=== PATIENT | male | born 1955 | race Caucasian/White ===

== ENCOUNTER 2017-03-13 08:58 | Inpatient (IN) | payer BC, MEDICARE ==
[~2017-03-13] VITALS: Ht 175.3 cm; Wt 115.4 kg
[~2017-03-13 08:58] MED LIST: ATOR20TA66 PO; BCTR15O TP; CLCX200C PO; CYCL10TA9 PO; DIPH25TA82 PO; ESCI20TA2 PO; FURO40TA4 PO; GABA-488 PO; GABA600T2 PO; HYDR-2890 PO; IRON1CAP11 PO; LD5PT TOP; META800T5 PO; NF-ESOM40C PO; OMG1KC PO; OXYC1TAB17 PO; OXYC20TA4 PO; OXYC80TA39 PO; POTA10CA43 PO; TRAM50TA2 PO; WARF2.5T56 PO; [UNRECOGNIZED DRUG - CODE] EXT; [UNRECOGNIZED DRUG - CODE] IV
[2017-03-13] MEDS ORDERED: fentaNYL INJECTION 100 MCG/2 ML AMP IVP PRN (10:00)
[2017-03-13] MEDS ORDERED: ACETAMINOPHEN 500 MG TAB (TYLENOL) PO PRN (10:00)
[2017-03-13] MEDS ORDERED: ONDANSETRON 4 MG/2 ML (SDV) Z0FRAN IVP PRN (10:00)
[2017-03-13] MEDS ORDERED: ALPRAZolam 0.25 MG (XANAX) TAB PO PRN ×2 (10:00→14:00)
[2017-03-13] MEDS ORDERED: VANCOMYCIN INJECTION 1,000 MG in NS (IVPB) 250 ML IV SCH (10:00)
[2017-03-13] MEDS ORDERED: ONDANSETRON 4 MG (ZOFRAN) ORAL DISSOLVE TAB PO PRN (10:00)
[2017-03-13] MEDS: NS IV 1000 ML 1,000 ML IV SCH ×2 (10:46→17:54)
[2017-03-13] MEDS ORDERED: POTA10TA10 PO (10:49)
[2017-03-13] MEDS ORDERED: EZET10TA27 PO (10:49)
[2017-03-13] MEDS ORDERED: LISI10TA2 PO (10:49)
[2017-03-13] MEDS ORDERED: CELE-63 PO (10:49)
[2017-03-13] MEDS ORDERED: LEVO1CAP9 PO (10:49)
--- NOTE | 2017-03-13 11:02 | History & Physical-Hospitalist ---
HPI History of Present Illness: HPI/Chief Complaint CC: Left leg cellulitis with fever of 102 with confusion HPI: This is a 61-year-old white male patient of Dr. Bergman in [place] that was transferred from [facility] so that Dr. Muniz could assess his left knee because of prior septic arthritis and multiple surgeries to manage that. 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 He had received 1 g of vancomycin and 1 g of Rocephin prior to transfer and the left leg that was severely red and swollen has had great improvement since the antibiotics were infused. Bilateral lower extremity ultrasound was completed revealing no evidence of DVT. He does take large doses of chronic narcotics for chronic pain in addition to gabapentin 300 mg 3 times a day along with Flexeril 10 mg 3 times a day and that regimen has caused altered mental status with the fever and infection. I have asked Dr Enrique to evaluate the soft tissue infection and will have Dr Silva evaluate my suspicion for CAD and PVD. Source: patient, family Exam Limitations: clinical condition Date Seen 03/13/17 Time Seen by Provider: 10:40 Attending Physician Keisha Martin DO PCP No,Local Physician Referring Physician Date of Admission Mar 13, 2017 at 10:20 Home Medications & Allergies Home Medications Reviewed patient Home Medication Reconciliation Form Allergies Allergies Coded Allergies Penicillins (Unverified Allergy, Unknown, 04/11/14) Past Fnytyfh-Vhxxzm-Jiyxkl Hx Patient Social History Smoking Status: Former Smoker (quit 3 yrs ago) Immunizations Up To Date Tetanus Booster (TDap): Less than 5yrs Surgeries HX Surgeries: Yes (BILATERAL KNEE REPLACEMENT, NECK AND BACK SURGERY, ) Surgeries: Orthopedic Respiratory Hx Respiratory Disorders: Yes (HX BRONCHITIS) Cardiovascular Hx Cardiovascular Disorders: No Neurological Hx Neurological Disorders: Yes Neurological Disorders: Neuropathy Reproductive System Hx Reproductive Disorders: No Genitourinary Hx Genitourinary Disorders: Yes Genitourinary Disorders: Renal Failure Gastrointestinal Hx Gastrointestinal Disorders: No Musculoskeletal Hx Musculoskeletal Disorders: Yes (DJD, INFECTED KNEE JOINTS) Musculoskeletal Disorders: Chronic Back Pain Endocrine Hx Endocrine Disorders: No HEENT HX ENT Disorders: No Cancer Hx Cancer: No Psychosocial Hx Psychiatric Problems: No Integumentary HX Skin/Integumentary Disorder: No Blood Transfusions Hx Blood Disorders: No Adverse Reaction to a Blood Tr: No Family Medical History Family Hx: Cardiovascular disease 19 FATHER Hypertension G8 BROTHER Respiratory disorder 19 FATHER Review of Systems Constitutional: see HPI, weakness EENTM: no symptoms reported Respiratory: no symptoms reported Cardiovascular: no symptoms reported Gastrointestinal: no symptoms reported Genitourinary: no symptoms reported Musculoskeletal: joint swelling, muscle pain Skin: see HPI, change in color, rash Psychiatric/Neurological: No Symptoms Reported Physical Exam Physical Exam Vital Signs Capillary Refill : General Appearance: No Apparent Distress, WD/WN, Chronically ill, Obese Eyes: Bilateral Eye Normal Inspection, Bilateral Eye PERRL HEENT: PERRL/EOMI, Normal ENT Inspection, Pharynx Normal Neck: Full Range of Motion, Normal Inspection, Non Tender, Supple, Carotid Bruit Respiratory: Chest Non Tender, Lungs Clear, Normal Breath Sounds, No Accessory Muscle Use, No Respiratory Distress Cardiovascular: Regular Rate, Rhythm, No Edema, No Gallop, No JVD, No Murmur, Normal Peripheral Pulses Gastrointestinal: Normal Bowel Sounds, No Organomegaly, No Pulsatile Mass, Non Tender, Soft Back: Normal Inspection, No CVA Tenderness, No Vertebral Tenderness Extremity: Normal Capillary Refill, Normal Inspection, Normal Range of Motion, Non Tender, No Calf Tenderness, No Pedal Edema, Other (left leg erythema from ankle to upper tibia with chronic stasis changes and eschars) Neurologic/Psychiatric: Alert, No Motor/Sensory Deficits, Normal Mood/Affect, Other (lethargic but becomes alert easily) Skin: Normal Color, Warm/Dry Lymphatic: No Adenopathy Assessment/Plan Admission Diagnosis Assessment: Left lower leg cellulitis with fever of 104 w/confusion from SIRS and pain meds/ muscle relaxants/gabapentin h/o left knee septic joint managed by Dr Muniz w/current cellulitis approaching joint so consulting Dr Muniz Chronic back pain narcotic dependent Suspicious for LORI and CAD no w/u in past consulting Dr Silva Leukocytosis Crackles on lung exam LLL ordering CXR and Nebs HTN HLP CRI creat 1.7 today Assessment and Plan Plan: IVF Limit pain meds until confusion resolved Monitor creatinine Vanc and Rocephin empirically Consult Iva Erazo and Cristy Clinical Quality Measures DVT/VTE Risk/Contraindication: Contraindications-Mechi: Other *list below* Other: cellulitis of the lower leg KEISHA MARTIN DO Mar 13, 2017 11:02
--- NOTE | 2017-03-13 11:27 | Consultation-Cardiology ---
HPI-Cardiology Cardiology Consultation: Date of Consultation 03/13/17 Time Seen by Provider: 11:00 Date of Admission 03-13-17 Attending Physician Keisha Gandara DO Admitting Physician Stephanie,Local Physician Consulting Physician Crystal Silva MD HPI: Chief Complaint: LLE swelling Cellulitis Mr. Palomino is a 61 year old male admitted as a direct admit from [facility] to this facility d/t left lower extremity cellulitis with probable sepsis and mental status changes. He is currently mentally obtunded. His daughter is at the bedside and assisting with information. She states he was having some confusion starting on Friday night with fever and chills. She states his spouse called EMS this morning d/t left lower extremity swelling, redness, fever, chills and altered mental status. She reports he has been "in and out of consciousness" throughout the morning. She states he has had 5 surgeries to his left knee d/t joint infection, with the last surgery being 2 years ago. He has previously followed with Dr. Muniz of ortho services. She reports he has not been c/o CP, SOB or palpitations. She reports the swelling and redness of the left leg was present starting this morning. He opens his eyes and withdraws to tactile stimuli, but does not follow commands. Review of Systems-Cardiology Review of Systems Other comments To the extent that a ROS could be done is as noted in HPI via interview with daughter and chart review [id number]-[id number] Hx Patient Social History Alcohol Use: Denies Use Recreational Drug Use: No Smoking Status: Former Smoker (quit 3 yrs ago) Type Used: Cigarettes Recent Foreign Travel: No Recent Infectious Disease Expo: No Physical Abuse Screen: No Sexual Abuse: No Immunizations Up To Date Tetanus Booster (TDap): Less than 5yrs Past Medical History PMH As described under Assessment. Family Medical History Family History: 19 FATHER Cardiovascular disease Respiratory disorder G8 BROTHER Hypertension Allergies and Home Medications Allergies Coded Allergies: Penicillins (Unverified Allergy, Unknown, 04/11/14) Home Medications Atorvastatin 20 Mg Tablet, 20 MG PO 1630, (Reported) Celecoxib 200 Mg Capsule, 200 MG PO 0430,1630, (Reported) Cyanocobalamin (Vitamin B-12) 2,500 Mcg Tab.subl, 2,500 MCG SL 1130,1630, ( Reported) Cyclobenzaprine Hcl 10 Mg Tablet, 10 MG PO 2230,429, (Reported) Escitalopram Oxalate 20 Mg Tablet, 20 MG PO 429,163, (Reported) Esomeprazole Mag Trihydrate 40 Mg Capsule.dr, 40 MG PO 0430, (Reported) Ezetimibe 10 Mg Tablet, 10 MG PO 1630, (Reported) Furosemide 40 Mg Tablet, 40 MG PO 1630, (Reported) Gabapentin 300 Mg Capsule, 600 MG PO 1129,163, (Reported) TAKES 2 (300MG) CAPSULES Gabapentin 300 Mg Capsule, 1,200 MG PO 2230, (Reported) TAKES 4 (300MG) CAPSULES Iron Polysaccharide Complex 150 Mg Capsule, 150 MG PO 429,163, (Reported) Levomefolate/B6/B12/Algal Oil 1 Each Capsule, 1 CAP PO 1629, (Reported) Lidocaine 1 Ea Patch, 1 PATCH TOP DAILY PRN for BACK PAIN, (Reported) Lisinopril 10 Mg Tablet, 10 MG PO 2229, (Reported) Oxycodone HCl/Acetaminophen 1 Each Tablet, 2 TAB PO 1129,2229, (Reported) Oxycodone Hcl 80 Mg Tab.sr.12h, 80 MG PO 429,1629, (Reported) Potassium Chloride 10 Meq Tablet.er, 10 MEQ PO 1129,2229, (Reported) Physical Exam-Cardiology Physical Exam Vital Signs/I&O Vital Sign - Last 12Hours 03/13/17 03/13/17 10:20 12:00 Temp 100.8 Pulse 90 Resp 20 B/P (MAP) 129/66 Pulse Ox 97 94 O2 Delivery Nasal Cannula O2 Flow Rate 3.00 Capillary Refill : Constitutional: other (mentally obtunded) HEENT: No discharge, hearing is well preserved, oral hygience is good, No ulceration, No xanthelasmas are seen Neck: No carotid bruit, carotid pulses are 2 + bilaterally Respiratory: chest expansion is symmetric, chest is bilaterally symmetric, other (diminished bases bilat) Cardiovascular: regular rate-rhythm, No JVD, S1 and S2 Gastrointestinal: soft, round, audible bowel sounds Rectal: deferred Extremities: other (Left lower extremity from the knee to foot with 2-3(+) edema, redness and warmth; mild RLE edema) Neurologic/Psychiatric: other (moves extermities) Skin: other (as above) Data Review Labs Lab from 03-13-17 at [facility] reviewed: WBC 16.1, H/H 13.4/39.7, Plt 216 Glucose 110, Na 132, K 4.4, Cl 96, Cr 1.7, BUN 20 BNP 18 Lactic acid 1.4 Radiology Lower extremity venous duplex from [facility] 03-13-17: negative for DVT, groin nodes seen A/P-Cardiology Assessment/Admission Diagnosis LLE cellulitis with suspected sepsis AMS - likely d/t sepsis HLP - statin tx - followed by PCP Suspected sleep apnea H/O left knee TKR with revisions - most recent [place] [address] Muniz (h/o infected joint in the past) Acute on chronic renal insufficiency Chronic narcotic analgesic use Discussion and Recomendations Complex management issue. LLE cellulitis with h/o multiple joint revisions and septic joint. This is being managed by ortho and medical services. Mental obtundation likely d/t sepsis. No evidence of DVT on u/s carried out at [facility] today. Suspected sleep apnea syndrome which will be worked up as an outpt CXR is pending Monitor lab closely Further recommendations will be based on his hospital course. We would like to thank the medical services for this consult This consult is being scribed by Racheal Malik APRN on behalf of Dr. Silva after discussion regarding plan of care Clinical Quality Measures DVT/VTE Risk/Contraindication: Risk Factor Score Per Nursin RFS Level Per Nursing on Admit: 4+=Very High Contraindications-Mechi: Other *list below* Other: cellulitis of the lower leg NORMA MALIK Mar 13, 2017 11:27
[2017-03-13] MEDS ORDERED: VANCOMYCIN 750 MG/NS 250 ML IVPB IV NR ×2 (11:46)
[2017-03-13 12:00] VITALS: BP 129/66
--- OUTSIDE RECORDS SUMMARY | 2017-03-13 12:11 | XMS REPORT ---
Author Author Dutch Bergman [facility] Address [address] [facility] [address] [place], [place] [id number] Care Team Providers Care Quality Analyst Name Role Phone Dutch Bergman PCP Unavailable Dutch Bergman PreferredProvider Unavailable Allergies and Adverse Reactions Name Reaction Notes PENICILLINS Plan of Treatment Planned Activity Comments Planned Date Planned Time Plan/Goal MRI lumbar spine wo contrast 02/27/2016 12:00 AM CBC With Auto Differential 08/29/2016 12:00 AM CMP 08/29/2016 12:00 AM Thyroid stimulating hormone (TSH) 10/01/2016 12:00 AM Tick borne disease panel 10/01/2016 12:00 AM Tick borne disease panel 10/01/2016 12:00 AM VITAMIN B12 10/01/2016 12:00 AM VITAMIN B12 10/10/2016 12:00 AM CBC With Auto Differential 06/17/2013 12:00 AM CMP 06/17/2013 12:00 AM CBC With Auto Differential 09/17/2013 12:00 AM CBC With Auto Differential 12/22/2013 12:00 AM CMP 12/22/2013 12:00 AM Lipid Profile 12/22/2013 12:00 AM CBC with Auto 05/30/2014 12:00 AM Medications Active Name Start Date Estimated Completion Date SIG Comments Fish Oil 1,000 mg oral capsule take 2 capsules by oral route QD before bed. gabapentin 300 mg oral capsule 09/03/2013 TAKE 2 CAPSULES BY MOUTH FOUR TIMES DAILY gabapentin 300 mg oral capsule 01/03/2014 TAKE 2 CAPSULES BY MOUTH FOUR TIMES DAILY cyclobenzaprine 10 mg oral tablet 03/02/2014 TAKE 1 TABLET BY MOUTH THREE TIMES DAILY gabapentin 300 mg oral capsule 04/04/2014 TAKE 2 CAPSULES BY MOUTH FOUR TIMES DAILY aspirin 325 mg oral tablet take 1 tablet (325 mg) by oral route once daily escitalopram oxalate 20 mg oral tablet 09/23/2014 TAKE 2 TABLETS BY MOUTH EVERY DAY cyclobenzaprine 10 mg oral tablet 09/26/2014 TAKE 1 TABLET BY MOUTH THREE TIMES DAILY furosemide 40 mg oral tablet 01/23/2015 TAKE 1 TABLET BY MOUTH DAILY Poly-Iron 150 mg iron oral capsule 03/13/2015 TAKE 1 CAPSULE BY MOUTH TWICE DAILY WITH MEALS furosemide 40 mg oral tablet 12/21/2015 TAKE 1 TABLET BY MOUTH DAILY potassium chloride 10 mEq oral capsule, extended release 02/02/2016 TAKE 1 CAPSULE BY MOUTH TWICE DAILY gabapentin 300 mg oral capsule 02/02/2016 TAKE 2 CAPSULES BY MOUTH FOUR TIMES DAILY esomeprazole magnesium 40 mg oral capsule,delayed release(DR/EC) 02/02/2016 TAKE 1 CAPSULE BY MOUTH EVERY DAY escitalopram oxalate 20 mg oral tablet 05/02/2016 TAKE 2 TABLETS BY MOUTH EVERY DAY celecoxib 200 mg oral capsule 05/02/2016 TAKE 1 CAPSULE BY MOUTH TWICE DAILY cyclobenzaprine 10 mg oral tablet 05/02/2016 TAKE 1 TABLET BY MOUTH THREE TIMES DAILY lisinopril 10 mg oral tablet 05/23/2016 take 1 tablet (10 mg) by oral route once daily Zetia 10 mg oral tablet 06/13/2016 03/10/2017 take 1 tablet (10 mg) by oral route once daily for 30 days lidocaine 5 % topical adhesive patch,medicated 07/15/2016 APPLY ONE PATCH LEAVE ON FOR 12 HOURS AND OFF FOR 12 HOURS esomeprazole magnesium 40 mg oral capsule,delayed release(DR/EC) 07/31/2016 TAKE 1 CAPSULE BY MOUTH DAILY lisinopril 10 mg oral tablet 08/01/2016 TAKE 1 TABLET BY MOUTH ONCE EVERY DAY cyclobenzaprine 10 mg oral tablet 09/24/2016 TAKE 1 TABLET BY MOUTH THREE TIMES DAILY Metanx (algal oil) 3 mg-35 mg-2 mg -90.314 mg oral capsule 10/10/20162016 take 1 capsule by oral route daily for 30 days Poly-Iron 150 mg iron oral capsule 10/23/2016 TAKE 1 CAPSULE BY MOUTH TWICE DAILY WITH MEALS Suphedrin 30 mg oral tablet 10/24/2016 take 1-2 tablets by oral route every 4 hours furosemide 40 mg oral tablet 11/25/2016 TAKE 1 TABLET BY MOUTH DAILY furosemide 40 mg oral tablet 11/25/2016 TAKE 1 TABLET BY MOUTH DAILY OxyContin 80 mg oral tablet,oral only,ext.rel.12 hr 12/02/2016 take 1 tablet (80mg) by oral route every 12 hours for 30 days Percocet 10-325 mg oral tablet 12/02/2016 take 1-2 tabs every 4 to 6 hrs prn pain Name Start Date Expiration Date SIG Comments Zithromax 250 mg oral tablet 05/31/2010 06/07/2010 take 2 tablets (500 mg) by oral route once daily for 7 days metaxalone 800 mg oral tablet 05/03/2010 05/17/2010 TAKE 1 TABLET BY MOUTH EVERY 8 HOURS Nexium 40 mg oral capsule,delayed release(DR/EC) 05/01/2010 05/31/2010 TAKE 1 CAPSULE BY MOUTH EVERY DAY Lidoderm 5 % topical adhesive patch,medicated 05/15/2010 06/14/2010 APPLY ONE PATCH LEAVE ON FOR 12 HOURS AND OFF FOR 12 HOURS Celebrex 200 mg oral capsule 06/01/2010 07/01/2010 TAKE 1 CAPSULE BY MOUTH TWICE DAILY Lexapro 20 mg oral tablet 01/30/2011 03/01/2011 TAKE 2 TABLETS BY MOUTH EVERY DAY Voltaren 1 % topical gel 02/21/2011 03/23/2011 APPY 2 GRAM TO AFFECTED AREA TOPICALLY FOUR TIMES DAILY betamethasone dipropionate 0.05 % topical cream 05/27/2011 05/27/2011 apply a thin film to the affected skin areas by topical route 2 times per day Bactrim DS 800-160 mg oral tablet 01/14/2012 01/24/2012 take 1 tablet by oral route 3 times a day for 10 days Ambien 10 mg oral tablet 09/20/2013 10/20/2013 take 1 tablet (10 mg) by oral route once daily at bedtime for 30 days Lipitor 40 mg oral tablet 05/27/2014 12/23/2014 take 1 tablet by oral route once daily at bedtime for 30 days Cialis 5 mg oral tablet 02/16/2015 03/18/2015 take 1 tablet (5 mg) by oral route once daily at approximately the same time each day for 30 days iFerex 150 150 mg iron oral capsule 02/02/2016 10/29/2016 take 1 capsule by oral route BID with meals Zithromax Z-Vasquez 250 mg oral tablet 05/23/2016 05/28/2016 take 2 tablets (500 mg) by oral route once daily for 1 day then 1 tablet (250 mg) by oral route once daily for 4 days Levaquin 500 mg oral tablet 06/26/2016 06/10/2016 take 1 tablet (500 mg) by oral route once daily for 7 days prednisone 20 mg oral tablet 06/25/2016 06/10/2016 take 2 tablets (40 mg) by oral route once daily for 7 days Discontinued Name Start Date Discontinued Date SIG Comments Skelaxin 800 mg oral tablet 05/25/2014 take 1 tablet (800 mg) by oral route 3 times per day as needed oxycodone 20 mg oral tablet 11/02/2009 11/03/2009 take 1 tablet (20 mg) by oral route every 6 hours Advil 200 mg oral tablet 03/21/2010 06/17/2013 take 2 tablets (400 mg) by oral route every 6 hours as needed with food gabapentin 600 mg oral tablet 04/05/2010 05/25/2014 TAKE 1 TABLET BY MOUTH FOUR TIMES DAILY Symbicort 160-4.5 mcg/actuation inhalation HFA aerosol inhaler 10/08/2010 inhale 2 puffs by inhalation route 2 times per day morning and evening Arthrotec 75 75-200 mg-mcg oral tablet,IR,delayed rel,biphasic 04/19/2011 take 1 tablet by oral route 2 times per day Celebrex 200 mg oral capsule 05/25/2014 take 1 capsule (200 mg) by oral route 2 times per day Medrol (Vasquez) 4 mg oral tablets,dose pack 01/02/2012 06/17/2013 take as directed Lotrisone 1-0.05 % topical cream 03/03/2012 08/23/2014 apply to the affected and surrounding areas of skin by topical route 2 times per day in the morning and evening Voltaren 1 % topical gel 07/05/2013 12/02/2016 APPLY 2 GRAMS TO AFFECTED AREA TOPICALLY FOUR TIMES DAILY Nexium 40 mg oral capsule,delayed release(DR/EC) 07/12/2013 08/23/2014 TAKE 1 CAPSULE BY MOUTH EVERY DAY escitalopram oxalate 20 mg oral tablet 09/28/2013 11/22/2014 TAKE 2 TABLETS BY MOUTH EVERY DAY triamcinolone acetonide 0.1 % topical cream 01/13/2014 08/23/2014 apply a thin layer to the affected area(s) by topical route 2 times per day Medrol (Vasquez) 4 mg oral tablets,dose pack 01/13/2014 08/23/2014 take as directed Lasix 40 mg oral tablet 08/23/2014 take 1 tablet (40 mg) by oral route once daily x 7days Poly-Iron 150 mg iron oral capsule 03/16/2014 08/23/2014 TAKE 1 CAPSULE BY MOUTH TWICE DAILY WITH MEALS potassium chloride 10 mEq oral capsule, extended release 03/16/2014 08/23/2014 TAKE 1 CAPSULE BY MOUTH TWICE DAILY furosemide 40 mg oral tablet 03/16/2014 08/23/2014 TAKE 1 TABLET BY MOUTH DAILY esomeprazole strontium 49.3 mg oral capsule,delayed release(DR/EC) 04/04/2014 TAKE 1 CAPSULE BY MOUTH EVERY DAY Transderm-Scop 1.5 mg (1 mg over 3 days) transdermal patch 3 day 04/25/2014 apply 1 patch by transdermal route to the hairless area behind 1 ear at least 4 hr before effect is required; reapply every 3 days as needed atorvastatin 20 mg oral tablet 05/16/2014 08/23/2014 TAKE 1 TABLET BY MOUTH ONCE DAILY AT BEDTIME betamethasone, augmented 0.05 % topical cream 05/17/2014 08/23/2014 APPLY THIN FILM TO AFFECTED AREA BY TOPICAL ROUTE TWICE DAILY lidocaine 5 % topical adhesive patch,medicated 07/25/2014 12/02/2016 APPLY ONE PATCH LEAVE ON FOR 12 HOURS AND OFF FOR 12 HOURS Nexium 40 mg oral capsule,delayed release(DR/EC) 10/17/2014 12/02/2016 TAKE 1 CAPSULE BY MOUTH EVERY DAY atorvastatin 80 mg oral tablet 02/16/2015 12/02/2016 take 1 tablet (80 mg) by oral route once daily at bedtime Celebrex 200 mg oral capsule 05/15/2015 12/02/2016 TAKE 1 CAPSULE BY MOUTH TWICE DAILY Flonase Allergy Relief 50 mcg/actuation nasal spray,suspension 05/23/201612/02 inhale 1 puff by nasal route 2 times a day Problem List Description Status Onset Low back pain Active 06/24/2011 Hyperlipidemia Active Hypertension Active 05/23/2016 Vital Signs Date Time BP-Sys(mm[Hg] BP-Gwen(mm[Hg]) HR(bpm) RR(rpm) Temp WT HT HC BMI BSA BMI Percentile O2 Sat(%) 12/02/2016 8:58:00 AM 128 mmHg 78 mmHg 71 bpm 16 rpm 96.6 F 252.375 lbs 69 in 37.27 kg/m2 2.36 m2 93 % 08/29/2016 3:42:00 PM 124 mmHg 62 mmHg 71 bpm 18 rpm 97.1 F 256 lbs 68 in 38.9243 kg/m 2.3603 m 95 % 06/03/2016 1:44:00 PM 132 mmHg 80 mmHg 62 bpm 18 rpm 97 F 251 lbs 68 in 38.16 kg/m2 2.34 m2 96 % 05/29/2016 8:32:00 AM 120 mmHg 82 mmHg 70 bpm 18 rpm 96.2 F 253 lbs 68 in 38.4681 kg/m 2.3465 m 97 % 05/23/2016 8:19:00 AM 146 mmHg 78 mmHg 70 bpm 18 rpm 97.4 F 253.125 lbs 68 in 38.49 kg/m2 2.35 m2 95 % 02/27/2016 3:02:00 PM 152 mmHg 80 mmHg 78 bpm 18 rpm 96.7 F 256 lbs 68 in 38.9243 kg/m 2.3603 m 92 % 12/04/2015 3:01:00 PM 140 mmHg 88 mmHg 68 bpm 18 rpm 96.5 F 267 lbs 68 in 40.60 kg/m2 2.41 m2 95 % 11/15/2015 8:46:00 AM 132 mmHg 84 mmHg 73 bpm 18 rpm 97.6 F 268 lbs 68 in 40.7488 kg/m 2.415 m 96 % 08/16/2015 9:20:00 AM 142 mmHg 80 mmHg 74 bpm 18 rpm 96 F 266 lbs 68 in 40.44 kg/m2 2.41 m2 95 % 07/26/2015 3:04:00 PM 142 mmHg 76 mmHg 76 bpm 18 rpm 97.6 F 259.375 lbs 68 in 39.4374 kg/m 2.3758 m 95 % 05/19/2015 8:38:00 AM 138 mmHg 82 mmHg 72 bpm 18 rpm 96.1 F 263 lbs 68 in 39.99 kg/m2 2.39 m2 02/16/2015 10:03:00 AM 128 mmHg 70 mmHg 72 bpm 18 rpm 97.5 F 269 lbs 68 in 40.9009 kg/m 2.4195 m 02/16/2015 8:45:00 AM 124 mmHg 86 mmHg 78 bpm 16 rpm 96.6 F 265 lbs 68 in 40.29 kg/m2 2.40 m2 11/22/2014 10:25:00 AM 132 mmHg 84 mmHg 11/22/2014 9:58:00 AM 158 mmHg 88 mmHg 78 bpm 18 rpm 97.5 F 266 lbs 68 in 40.44 kg/m2 2.41 m2 08/23/2014 1:53:00 PM 148 mmHg 82 mmHg 76 bpm 16 rpm 97.6 F 266.625 lbs 68 in 40.5398 kg/m 2.4088 m 92 % 05/25/2014 9:06:00 AM 138 mmHg 74 mmHg 88 bpm 18 rpm 97.6 F 259 lbs 68 in 39.38 kg/m2 2.37 m2 01/13/2014 10:59:00 AM 118 mmHg 68 mmHg 69 bpm 18 rpm 97 F 271 lbs 68 in 41.205 kg/m 2.4285 m 98 % 12/22/2013 8:32:00 AM 138 mmHg 72 mmHg 68 bpm 18 rpm 97.1 F 273 lbs 68 in 41.51 kg/m2 2.44 m2 09/17/2013 9:14:00 AM 154 mmHg 88 mmHg 78 bpm 18 rpm 97.3 F 260 lbs 68 in 39.5325 kg/m 2.3787 m 06/17/2013 2:58:00 PM 140 mmHg 82 mmHg 72 bpm 18 rpm 96.6 F 254 lbs 68 in 38.62 kg/m2 2.35 m2 06/08/2012 2:39:00 PM 138 mmHg 88 mmHg 78 bpm 18 rpm 97.1 F 262 lbs 68.5 in 39.2571 kg/m 2.3966 m 03/03/2012 3:07:00 PM 144 mmHg 82 mmHg 68 bpm 18 rpm 97.7 F 259 lbs 68.5 in 38.81 kg/m2 2.38 m2 01/02/2012 1:58:00 PM 160 mmHg 92 mmHg 80 bpm 24 rpm 96.8 F 260 lbs 68.5 in 38.9574 kg/m 2.3874 m 04/19/2011 11:16:00 AM 140 mmHg 88 mmHg 68 bpm 20 rpm 98.6 F 255 lbs 68.5 in 38.21 kg/m2 2.36 m2 10/03/2010 10:28:00 AM 122 mmHg 84 mmHg 78 bpm 22 rpm 97.4 F 260 lbs 93 % 05/31/2010 1:28:00 PM 128 mmHg 80 mmHg 64 bpm 20 rpm 97.4 F 255 lbs 03/21/2010 10:34:00 AM 110 mmHg 72 mmHg 60 bpm 20 rpm 247 lbs 12/20/2009 10:31:00 AM 126 mmHg 70 mmHg 72 bpm 18 rpm 97.1 F 251.25 lbs 08/31/2009 2:24:00 PM 126 mmHg 78 mmHg 72 bpm 18 rpm 97.6 F 255.5 lbs Social History Name Description Comments Tobacco Use 2 PPD BEGAN AT AGE 11. denies alcohol use Lives with spouse Tobacco Current every day smoker History of Procedures Date Ordered Description Order Status 11/15/2015 12:00 AM BIOPSY SKIN LESION Reviewed 12/04/2015 12:00 AM MRI LUMBAR SPINE W/O DYE Reviewed 05/29/2016 12:00 AM COMPLETE CBC W/AUTO DIFF WBC Reviewed 05/29/2016 12:00 AM COMPREHEN METABOLIC PANEL Reviewed 05/29/2016 12:00 AM LIPID PANEL Reviewed 05/29/2016 12:00 AM Prostate Cancer Screening Reviewed 05/29/2016 12:00 AM Decadron, Per 1 Mg [facility]# [address]-28 Reviewed 05/29/2016 12:00 AM Depo-Medrol, Per 80 Mg [facility]#[address]-61 Reviewed 08/29/2016 12:00 AM LIPID PANEL Returned 10/01/2016 12:00 AM COMPLETE CBC W/AUTO DIFF WBC Returned 10/01/2016 12:00 AM COMPREHEN METABOLIC PANEL Returned 06/08/2012 12:00 AM Depo-Medrol 80 Mg Im/C'hallie Reviewed 06/08/2012 12:00 AM Decadron, Per 1 Mg [facility]# [address]-73 Reviewed 06/17/2013 12:00 AM LIPID PANEL Reviewed 09/17/2013 12:00 AM COMPREHEN METABOLIC PANEL Reviewed 09/17/2013 12:00 AM LIPID PANEL Reviewed 09/17/2013 12:00 AM Prostate Cancer Screening Reviewed 09/17/2013 12:00 AM Decadron, Per 1 Mg [facility]# [address]-01 Reviewed 09/17/2013 12:00 AM Depo-Medrol 80 Mg Im/C'hallie Reviewed 03/21/2010 12:00 AM X-RAY EXAM KNEE 4 OR MORE Reviewed 05/31/2010 12:00 AM CHEST X-RAY 2VW FRONTAL&LATL Reviewed 05/25/2014 12:00 AM COMPLETE CBC W/AUTO DIFF WBC Reviewed 05/25/2014 12:00 AM COMPREHEN METABOLIC PANEL Reviewed 05/25/2014 12:00 AM LIPID PANEL Reviewed 05/25/2014 12:00 AM ASSAY THYROID STIM HORMONE Reviewed 02/16/2015 12:00 AM COMPLETE CBC W/AUTO DIFF WBC Reviewed 02/16/2015 12:00 AM COMPREHEN METABOLIC PANEL Reviewed 02/16/2015 12:00 AM LIPID PANEL Reviewed 02/16/2015 12:00 AM VITAMIN B-12 Reviewed 02/16/2015 12:00 AM Prostate Cancer Screening Reviewed 02/16/2015 12:00 AM ASSAY OF IRON Reviewed Results Summary Data and Description Results 09/17/2013 10:18 AM WBC 6.3 RBC 4.50 HGB 14.50 g/dLHCT 42.20 %MCV 94.0 fLMCH 32.20 pgMCHC 34.40 g/dLRDW SD 45 RDW CV 13.10 %MPV 9.10 fLPLT 203 NRBC# 0.00 NRBC% 0.0 %NEUT 41.50 %%LYMP 46.40 %%MONO 7.0 %%EOS 4.30 %%BASO 0.80 %#NEUT 2.63 #LYMP 2.93 #MONO 0.44 #EOS 0.27 #BASO 0.05 MANUAL DIFF NOT IND TRIGLYCERIDES 311.0 mg/dLCHOLESTEROL 342.0 mg/dLHDL 43.0 mg/dLTOT CHOL/HDL 8.0 LDL (CALC) 237.0 mg/dLGLUCOSE 94.0 mg/dLSODIUM 134.0 mmol/LPOTASSIUM 4.40 mmol/ LCHLORIDE 98.0 mmol/LCO2 29.0 mmol/LBUN 16.0 mg/dLCREATININE 1.10 mg/dLSGOT/AST 22.0 IU/LSGPT/ALT 27.0 IU/LALK PHOS 86.0 IU/LTOTAL PROTEIN 7.90 g/dLALBUMIN 4.20 g/dLTOTAL BILI 0.40 mg/dLCALCIUM 10.30 mg/dLAGE 57 GFR NonAA 69 GFR AA 84 eGFR >60 mL/min/1.73 m2eGFR AA* >60 PSA TOTAL <0.06 NG/ML 05/25/2014 10:08 AM WBC 5.7 RBC 3.68 HGB 10.40 g/dLHCT 32.80 %MCV 89.0 fLMCH 28.30 pgMCHC 31.70 g/dLRDW SD 49 RDW CV 15.20 %MPV 9.30 fLPLT 316 NRBC# 0.00 NRBC% 0.0 %NEUT 42.60 %%LYMP 38.20 %%MONO 6.0 %%EOS 11.80 %%BASO 1.40 %#NEUT 2.43 #LYMP 2.18 #MONO 0.34 #EOS 0.67 #BASO 0.08 MANUAL DIFF NOT IND TRIGLYCERIDES 289.0 mg/dLCHOLESTEROL 247.0 mg/dLHDL 38.0 mg/dLTOT CHOL/HDL 6.5 LDL (CALC) 151.0 mg/dLGLUCOSE 99.0 mg/dLSODIUM 139.0 mmol/LPOTASSIUM 3.50 mmol/ LCHLORIDE 98.0 mmol/LCO2 29.0 mmol/LBUN 12.0 mg/dLCREATININE 1.50 mg/dLSGOT/AST 13.0 IU/LSGPT/ALT 12.0 IU/LALK PHOS 106.0 IU/LTOTAL PROTEIN 8.0 g/dLALBUMIN 4.10 g/dLTOTAL BILI 0.30 mg/dLCALCIUM 10.0 mg/dLAGE 58 GFR NonAA 48 GFR AA 58 eGFR 48 eGFR AA* 58 TSH 2.370 uIU/mL 02/16/2015 9:25 AM WBC 5.9 RBC 4.43 HGB 13.90 g/dLHCT 42.10 %MCV 95.0 [facility] pgHC 33.0 g/dLRDW SD 49 RDW CV 14.0 %MPV 9.40 fLPLT 238 NRBC# 0.00 NRBC % 0.0 %NEUT 43.40 %%LYMP 40.50 %%MONO 7.90 %%EOS 7.50 %%BASO 0.70 %#NEUT 2.54 # LYMP 2.37 #MONO 0.46 #EOS 0.44 #BASO 0.04 MANUAL DIFF NOT IND VITAMIN B12 387.0 pg/mLPSA TOTAL <0.06 NG/MLIRON TOTAL 60.0 ug/dLGLUCOSE 95.0 mg/dLSODIUM 138.0 mmol/LPOTASSIUM 4.0 mmol/LCHLORIDE 99.0 mmol/LCO2 29.0 mmol/LBUN 12.0 mg/ dLCREATININE 1.20 mg/dLSGOT/AST 19.0 IU/LSGPT/ALT 18.0 IU/LALK PHOS 108.0 IU/ LTOTAL PROTEIN 7.60 g/dLALBUMIN 4.20 g/dLTOTAL BILI 0.50 mg/dLCALCIUM 9.70 mg/ dLAGE 59 GFR NonAA 62 GFR AA 75 eGFR >60 mL/min/1.73 m2eGFR AA* >60 TRIGLYCERIDES 282.0 mg/dLCHOLESTEROL 272.0 mg/dLHDL 39.0 mg/dLTOT CHOL/HDL 7.0 LDL (CALC) 177.0 mg/dL 06/13/2016 6:40 AM PSA TOTAL <0.06 ng/mLTRIGLYCERIDES 194.0 mg/dLCHOLESTEROL 293.0 mg/dLHDL 50.0 mg/dLTOT CHOL/HDL 5.9 LDL (CALC) 204.0 mg/dLWBC 8.1 RBC 4.52 HGB 14.30 g/dLHCT 43.30 %MCV 96.0 fLMCH 31.60 pgMCHC 33.0 g/dLRDW SD 47 RDW CV 13.20 %MPV 8.80 fLPLT 251 NRBC# 0.00 NRBC% 0.0 %NEUT 54.20 %%LYMP 34.10 % %MONO 6.40 %%EOS 4.30 %%BASO 0.60 %#NEUT 4.41 #LYMP 2.77 #MONO 0.52 #EOS 0.35 # BASO 0.05 MANUAL DIFF NOT IND GLUCOSE 89.0 mg/dLSODIUM 140.0 mmol/LPOTASSIUM 3.80 mmol/LCHLORIDE 98.0 mmol/LCO2 29.0 mmol/LBUN 20.0 mg/dLCREATININE 1.30 mg/ dLSGOT/AST 18.0 IU/LSGPT/ALT 17.0 IU/LALK PHOS 88.0 IU/LTOTAL PROTEIN 7.60 g/ dLALBUMIN 4.30 g/dLTOTAL BILI 0.50 mg/dLCALCIUM 9.50 mg/dLAGE 60 GFR NonAA 56 GFR AA 68 eGFR 56 eGFR AA* >60 11/30/2016 11:05 AM WBC 7.4 RBC 4.28 HGB 13.80 g/dLHCT 41.20 %MCV 96.0 fLMCH 32.20 pgMCHC 33.50 g/dLRDW SD 44 RDW CV 12.40 %MPV 8.50 fLPLT 234 NRBC# 0.00 NRBC% 0.0 %NEUT 45.50 %%LYMP 39.50 %%MONO 6.50 %%EOS 6.90 %%BASO 1.20 %#NEUT 3.34 #LYMP 2.91 #MONO 0.48 #EOS 0.51 #BASO 0.09 MANUAL DIFF NOT IND GLUCOSE 90.0 mg/dLSODIUM 139.0 mmol/LPOTASSIUM 4.30 mmol/LCHLORIDE 99.0 mmol/LCO2 31.0 mmol/LBUN 18.0 mg/dLCREATININE 1.50 mg/dLSGOT/AST 21.0 IU/LSGPT/ALT 21.0 IU/ LALK PHOS 78.0 IU/LTOTAL PROTEIN 7.60 g/dLALBUMIN 4.30 g/dLTOTAL BILI 0.40 mg/ dLCALCIUM 9.70 mg/dLAGE 60 GFR NonAA 47 GFR AA 57 eGFR 47 eGFR AA* 57 TRIGLYCERIDES 330.0 mg/dLCHOLESTEROL 271.0 mg/dLHDL 38.0 mg/dLTOT CHOL/HDL 7.1 LDL (CALC) 167.0 mg/dL History Of Immunizations Not available. History of Past Illness Name Date of Onset Comments Hyperlipidemia, unspecified Aug 31 2009 2:26PM Hyperlipidemia Low back pain 06/24/2011 Esophageal Reflux Dec 20 2009 10:35AM Low Back Pain Dec 20 2009 10:35AM Osteoarthritis Dec 20 2009 10:35AM Pain in joint; hand Dec 20 2009 10:35AM Pain in joint; lower leg/knee Mar 21 2010 10:37AM Pneumonia May 31 2010 1:30PM Chronic Obstructive Pulmonary Disease Oct 03 2010 10:27AM Hypertension 05/23/2016 Low Back Pain Apr 19 2011 11:17AM Osteoarthritis Apr 19 2011 11:17AM Cellulitis/Abscess, unspecified Jan 02 2012 2:03PM Tinea Corporis Mar 03 2012 3:12PM Sciatica Jun 08 2012 2:46PM Screening For Prostate Cancer Jun 17 2013 3:03PM Chronic Obstructive Pulmonary Disease Jun 17 2013 3:03PM Special screening for cardiovascular, respiratory, and genitourinary diseases; ischemic heart disease Jun 17 2013 3:03PM Chronic back pain Jun 17 2013 3:03PM Upper Respiratory Infection Sep 17 2013 9:19AM Hyperlipidemia Sep 17 2013 9:19AM Chronic back pain Sep 17 2013 9:19AM Hyperlipidemia, unspecified Dec 22 2013 8:38AM Chronic back pain Dec 22 2013 8:38AM Contact dermatitis Jan 13 2014 11:02AM Low Back Pain May 25 2014 9:14AM Hyperlipidemia May 25 2014 9:14AM Fatigue May 25 2014 9:14AM Anemia May 30 2014 8:07AM Low back pain Aug 23 2014 2:01PM Elevated blood pressure Aug 23 2014 2:01PM Low Back Pain Nov 22 2014 10:03AM Low Back Pain Feb 16 2015 8:49AM Screening For Prostate Cancer Feb 16 2015 8:49AM Anemia Feb 16 2015 8:49AM BPH (benign prostatic hyperplasia) Feb 16 2015 8:49AM Hyperlipidemia Feb 16 2015 8:49AM Low Back Pain May 19 2015 8:43AM Acute URI Jul 26 2015 3:06PM Chronic back pain Aug 16 2015 9:27AM Hyperlipidemia, unspecified Nov 15 2015 8:51AM Low Back Pain Nov 15 2015 8:51AM Actinic keratosis Nov 15 2015 9:28AM Low Back Pain Dec 04 2015 3:07PM Low Back Pain Feb 27 2016 3:04PM Hypertension May 23 2016 8:21AM Acute upper respiratory infection May 23 2016 8:21AM Upper Respiratory Infection May 29 2016 8:37AM Hyperlipidemia, unspecified May 29 2016 8:37AM Screening For Prostate Cancer May 29 2016 8:37AM Spinal stenosis of lumbar region May 29 2016 8:37AM Hypertension May 29 2016 8:37AM Bronchitis Jun 03 2016 1:50PM Hypertension Aug 29 2016 3:44PM Hyperlipidemia, unspecified Aug 29 2016 3:44PM Spinal stenosis of lumbar region Aug 29 2016 3:44PM Fatigue Oct 01 2016 12:00PM Bitten or stung by nonvenomous insect and other nonvenomous arthropods, initial encounter Oct 01 2016 12:00PM Fatigue Oct 10 2016 10:40AM Hyperlipidemia, unspecified Dec 02 2016 9:03AM Low Back Pain Dec 02 2016 9:03AM Payers Insurance Name Company Name Plan Name Plan Number Policy Number Policy Group Number Start Date BCBS [facility] [id number] August Medicare RHC Medicare RHC [id number] Wednesday, 2012 Medicare Part A Medicare Part A [id number] Wednesday, 2012 Medicare Part A [id number] A Secondary [id number] N/A Medicare Part A Medicare - Lab/Xray [id number] Wednesday, December 26, 2012 History of Encounters Visit Date Visit Type Provider 12/02/2016 Office visit Dutch Bergman MD 08/29/2016 Office visit Dutch Bergman MD 06/03/2016 Office visit Dutch Bergman MD 05/29/2016 Office visit Dutch Bergman MD 05/23/2016 Office visit Ramandeep Dsouza [employer] 02/27/2016 Office visit Dutch Bergman MD 12/04/2015 Office visit Dutch Bergman MD 11/15/2015 Office visit Dutch Bergman MD 08/16/2015 Office visit Dutch Bergman MD 07/26/2015 Office visit Ramandeep Dsouza [employer] FI[employer] 05/19/2015 Office visit Dutch Bergman MD 02/16/2015 Office visit Dutch Bergman MD 11/22/2014 Office visit Dutch Bergman MD 08/23/2014 Office visit Dutch Bergman MD 05/25/2014 Office visit 05/25/2014 Office visit Dutch Bergman MD 01/13/2014 Office visit Ramandeep Dsouza O[employer] FIELD [employer] 12/22/2013 Office visit Dutch Bergman MD 09/17/2013 Office visit Dutch Bergman MD 06/17/2013 Office visit Dutch Bergman MD 06/08/2012 Office visit Dutch Bergman MD 03/03/2012 Office visit Dutch Bergman MD 01/02/2012 Office visit Dutch Bergman MD 04/19/2011 Office visit Dutch Bergman MD 10/03/2010 Office visit Dutch Bergman MD 05/31/2010 Office visit Dutch Bergman MD 03/21/2010 Office visit Dutch Bergman MD 12/20/2009 Office visit Dutch Bergman MD 08/31/2009 Office visit Dutch Bergman MD
--- OUTSIDE RECORDS SUMMARY | 2017-03-13 12:12 | XMS REPORT ---
Author Author Dutch Bergman [facility] Address [address] [place], [place] [id number] Care Team Providers Care Wigs Salesperson Name Role Phone Dutch Bergman PCP Unavailable Dutch Bergman PreferredProvider Unavailable Allergies and Adverse Reactions Name Reaction Notes PENICILLINS Plan of Treatment Planned Activity Comments Planned Date Planned Time Plan/Goal MRI lumbar spine wo contrast 02/27/2016 12:00 AM CBC With Auto Differential 08/29/2016 12:00 AM CMP 08/29/2016 12:00 AM Lipid profile 08/29/2016 12:00 AM CBC with Auto 10/01/2016 12:00 AM CMP (comprehensive metabolic panel) 10/01/2016 12:00 AM Thyroid stimulating hormone (TSH) 10/01/2016 [...] capsules by oral route QD before bed. Voltaren 1 % topical gel 07/05/2013 APPLY 2 GRAMS TO AFFECTED AREA TOPICALLY FOUR TIMES DAILY gabapentin 300 mg oral capsule 09/03/2013 TAKE [...] (325 mg) by oral route once daily lidocaine 5 % topical adhesive patch,medicated 07/25/2014 APPLY ONE PATCH LEAVE ON FOR 12 HOURS AND OFF FOR 12 HOURS escitalopram oxalate 20 mg oral tablet 09/23/2014 TAKE 2 TABLETS BY MOUTH EVERY DAY cyclobenzaprine 10 mg oral tablet 09/26/2014 TAKE 1 TABLET BY MOUTH THREE TIMES DAILY Nexium 40 mg oral capsule,delayed release(DR/EC) 10/17/2014 TAKE 1 CAPSULE BY MOUTH EVERY DAY furosemide 40 mg oral tablet 01/23/2015 TAKE 1 TABLET BY MOUTH DAILY atorvastatin 80 mg oral tablet 02/16/2015 take 1 tablet (80 mg) by oral route once daily at bedtime Poly-Iron 150 mg iron oral capsule 03/13/2015 TAKE 1 CAPSULE BY MOUTH TWICE DAILY WITH MEALS Celebrex 200 mg oral capsule 05/15/2015 TAKE 1 CAPSULE BY MOUTH TWICE DAILY furosemide 40 mg oral tablet 12/21/2015 TAKE 1 TABLET BY MOUTH DAILY potassium chloride 10 mEq oral capsule, extended release 02/02/2016 TAKE 1 CAPSULE BY MOUTH TWICE DAILY gabapentin 300 mg oral capsule 02/02/2016 TAKE 2 CAPSULES BY MOUTH FOUR TIMES DAILY esomeprazole magnesium 40 mg oral capsule,delayed release(DR/EC) 02/02/2016 TAKE 1 CAPSULE BY MOUTH EVERY DAY iFerex 150 150 mg iron oral capsule 02/02/2016 10/29/2016 take 1 capsule by oral route BID with meals escitalopram oxalate 20 mg oral tablet 05/02/2016 TAKE 2 TABLETS BY MOUTH EVERY DAY celecoxib 200 mg oral capsule 05/02/2016 TAKE 1 CAPSULE BY MOUTH TWICE DAILY cyclobenzaprine 10 mg oral tablet 05/02/2016 TAKE 1 TABLET BY MOUTH THREE TIMES DAILY Flonase Allergy Relief 50 mcg/actuation nasal spray,suspension 05/23/2016 inhale 1 puff by nasal route 2 times a day lisinopril 10 mg oral tablet 05/23/2016 take 1 tablet (10 mg) by oral route once daily Percocet 10-325 mg oral tablet 05/29/2016 take 1-2 tabs every 4 to 6 hrs prn pain Zetia 10 mg oral tablet 06/13/2016 03/10/2017 [...] 1 TABLET BY MOUTH ONCE EVERY DAY Suphedrin 30 mg oral tablet 08/08/2016 take 1-2 tablets by oral route every 4 hours OxyContin 80 mg oral tablet,oral only,ext.rel.12 hr 08/29/2016 take 1 tablet (80mg) by oral route every 12 hours for 30 days cyclobenzaprine 10 mg oral tablet 09/24/2016 TAKE 1 TABLET BY MOUTH THREE TIMES DAILY Name Start Date Expiration Date SIG Comments [...] same time each day for 30 days Zithromax Z-Vasquez 250 mg oral tablet 05/23/2016 [...] per day in the morning and evening Nexium 40 mg oral capsule,delayed release(DR/EC) 07/12/2013 [...] AFFECTED AREA BY TOPICAL ROUTE TWICE DAILY Problem List Description Status Onset Low back pain Active 06/24/2011 Hyperlipidemia Active Hypertension Active 05/23/2016 Vital Signs Date Time BP-Sys(mm[Hg] BP-Gwen(mm[Hg]) HR(bpm) RR(rpm) Temp WT HT HC BMI BSA BMI Percentile O2 Sat(%) 08/29/2016 3:42:00 PM 124 mmHg 62 mmHg 71 bpm 18 rpm 97.1 F 256 lbs 68 in 38.92 kg/m2 2.36 m2 95 % 06/03/2016 1:44:00 PM 132 mmHg 80 mmHg 62 bpm 18 rpm 97 F 251 lbs 68 in 38.164 kg/m 2.3372 m 96 % 05/29/2016 8:32:00 AM 120 mmHg 82 mmHg 70 bpm 18 rpm 96.2 F 253 lbs 68 in 38.47 kg/m2 2.35 m2 97 % 05/23/2016 8:19:00 AM 146 mmHg 78 mmHg 70 bpm 18 rpm 97.4 F 253.125 lbs 68 in 38.4871 kg/m 2.347 m 95 % 02/27/2016 3:02:00 PM 152 mmHg 80 mmHg 78 bpm 18 rpm 96.7 F 256 lbs 68 in 38.92 kg/m2 2.36 m2 92 % 12/04/2015 3:01:00 PM 140 mmHg 88 mmHg 68 bpm 18 rpm 96.5 F 267 lbs 68 in 40.5968 kg/m 2.4105 m 95 % 11/15/2015 8:46:00 AM 132 mmHg 84 mmHg 73 bpm 18 rpm 97.6 F 268 lbs 68 in 40.75 kg/m2 2.42 m2 96 % 08/16/2015 9:20:00 AM 142 mmHg 80 mmHg 74 bpm 18 rpm 96 F 266 lbs 68 in 40.4447 kg/m 2.406 m 95 % 07/26/2015 3:04:00 PM 142 mmHg 76 mmHg 76 bpm 18 rpm 97.6 F 259.375 lbs 68 in 39.44 kg/m2 2.38 m2 95 % 05/19/2015 8:38:00 AM 138 mmHg 82 mmHg 72 bpm 18 rpm 96.1 F 263 lbs 68 in 39.9886 kg/m 2.3924 m 02/16/2015 10:03:00 AM 128 mmHg 70 mmHg 72 bpm 18 rpm 97.5 F 269 lbs 68 in 40.90 kg/m2 2.42 m2 02/16/2015 8:45:00 AM 124 mmHg 86 mmHg 78 bpm 16 rpm 96.6 F 265 lbs 68 in 40.2927 kg/m 2.4015 m 11/22/2014 10:25:00 AM 132 mmHg 84 mmHg 11/22/2014 9:58:00 AM 158 mmHg 88 mmHg 78 bpm 18 rpm 97.5 F 266 lbs 68 in 40.4447 kg/m 2.41 m2 08/23/2014 1:53:00 PM 148 mmHg 82 mmHg 76 bpm 16 rpm 97.6 F 266.625 lbs 68 in 40.54 kg/m2 2.4088 m 92 % 05/25/2014 9:06:00 AM 138 mmHg 74 mmHg 88 bpm 18 rpm 97.6 F 259 lbs 68 in 39.3804 kg/m 2.37 m2 01/13/2014 10:59:00 AM 118 mmHg 68 mmHg 69 bpm 18 rpm 97 F 271 lbs 68 in 41.20 kg/m2 2.4285 m 98 % 12/22/2013 8:32:00 AM 138 mmHg 72 mmHg 68 bpm 18 rpm 97.1 F 273 lbs 68 in 41.5091 kg/m 2.44 m2 09/17/2013 9:14:00 AM 154 mmHg 88 mmHg 78 bpm 18 rpm 97.3 F 260 lbs 68 in 39.53 kg/m2 2.3787 m 06/17/2013 2:58:00 PM 140 mmHg 82 mmHg 72 bpm 18 rpm 96.6 F 254 lbs 68 in 38.6202 kg/m 2.35 m2 06/08/2012 2:39:00 PM 138 mmHg 88 mmHg 78 bpm 18 rpm 97.1 F 262 lbs 68.5 in 39.26 kg/m2 2.3966 m 03/03/2012 3:07:00 PM 144 mmHg 82 mmHg 68 bpm 18 rpm 97.7 F 259 lbs 68.5 in 38.8076 kg/m 2.38 m2 01/02/2012 1:58:00 PM 160 mmHg 92 mmHg 80 bpm 24 rpm 96.8 F 260 lbs 68.5 in 38.96 kg/m2 2.39 m2 04/19/2011 11:16:00 AM 140 mmHg 88 mmHg 68 bpm 20 rpm 98.6 F 255 lbs 68.5 in 38.2083 kg/m 2.3644 m 10/03/2010 10:28:00 AM 122 mmHg 84 mmHg [...] 05/29/2016 12:00 AM Decadron, Per 1 Mg [place]# [id number] Reviewed 05/29/2016 12:00 AM Depo-Medrol, Per [address] [facility]#[address]-73 Reviewed 06/08/2012 12:00 AM Depo-Medrol 80 Mg Im/C'hallie Reviewed 06/08/2012 12:00 AM Decadron, Per [address] [facility]# [address]-02 Reviewed 06/17/2013 12:00 AM LIPID PANEL Reviewed 09/17/2013 12:00 AM COMPREHEN METABOLIC PANEL Reviewed 09/17/2013 12:00 AM LIPID PANEL Reviewed 09/17/2013 12:00 AM Prostate Cancer Screening Reviewed 09/17/2013 12:00 AM Decadron, Per [address] [facility]# [address]-06 Reviewed 09/17/2013 12:00 AM Depo-Medrol 80 Mg [...] 4.43 HGB 13.90 g/dLHCT 42.10 %MCV 95.0 fLMCH 31.40 pgMCHC 33.0 g/dLRDW SD 49 RDW CV 14.0 [...] AA 68 eGFR 56 eGFR AA* >60 History Of Immunizations Not available. History of [...] 2016 12:00PM Fatigue Oct 10 2016 10:40AM Payers Insurance Name Company Name Plan Name Plan Number Policy Number Policy Group Number Start Date BCBS [facility] [id number] August Medicare [facility] Medicare [facility] [id number] N/A Medicare Part A Medicare Part A [id number] Wednesday, 2012 Medicare Part A [id number] A Secondary [id number] N/A Medicare Part A Medicare - Lab/Xray [id number] Wednesday, December 26, 2012 History of Encounters Visit Date Visit Type Provider 08/29/2016 Office visit Dutch Bergman MD 06/03/2016 Office visit Dutch Bergman MD 05/29/2016 Office visit Dutch Bergman MD 05/23/2016 Office visit Ramandeep Dsouza APRN 02/27/2016 Office visit Dutch Bergman MD 12/04/2015 Office visit Dutch Bergman MD 11/15/2015 Office visit Dutch Bergman MD 08/16/2015 Office visit Dutch Bergman MD 07/26/2015 Office visit Ramandeep Dsouza APRN 05/19/2015 Office visit Dutch Bergman MD 02/16/2015 Office visit Dutch Bergman MD 11/22/2014 Office visit Dutch Bergman MD 08/23/2014 Office visit Dutch Bergman MD 05/25/2014 Office visit 05/25/2014 Office visit Dutch Bergman MD 01/13/2014 Office visit Ramandeep Dsouza APRN 12/22/2013 Office visit Dutch Bergman MD 09/17/2013 [...]
--- OUTSIDE RECORDS SUMMARY | 2017-03-13 12:13 | XMS REPORT ---
Author Author Dutch Bergman [facility] Address [address] [place], [place] [id number] Care Team Providers Care Delimer Name Role Phone Dutch Bergman PCP Unavailable Allergies and Adverse Reactions Name Reaction Notes PENICILLINS Plan of Treatment Planned Activity Comments Planned Date Planned Time Plan/Goal MRI LUMBAR SPINE W/O DYE 12/04/2015 12:00 AM COMPLETE CBC W/AUTO DIFF WBC 06/17/2013 12:00 AM COMPREHEN METABOLIC PANEL 06/17/2013 12:00 AM COMPLETE CBC W/AUTO DIFF WBC 09/17/2013 12:00 AM COMPLETE CBC W/AUTO DIFF WBC 12/22/2013 12:00 AM COMPREHEN METABOLIC PANEL 12/22/2013 12:00 AM LIPID PANEL 12/22/2013 12:00 AM COMPLETE CBC W/AUTO DIFF WBC 05/30/2014 12:00 AM Medications Active Name Start [...] CAPSULE BY MOUTH TWICE DAILY WITH MEALS gabapentin 300 mg oral capsule 03/13/2015 TAKE 2 CAPSULES BY MOUTH FOUR TIMES DAILY potassium chloride 10 mEq oral capsule, extended release 03/13/2015 TAKE 1 CAPSULE BY MOUTH TWICE DAILY celecoxib 200 mg oral capsule 06/08/2015 TAKE 1 CAPSULE BY MOUTH TWICE DAILY Celebrex 200 mg oral capsule 05/15/2015 TAKE 1 CAPSULE BY MOUTH TWICE DAILY cyclobenzaprine 10 mg oral tablet 06/27/2015 TAKE 1 TABLET BY MOUTH THREE TIMES DAILY escitalopram oxalate 20 mg oral tablet 07/13/2015 TAKE 2 TABLETS BY MOUTH EVERY DAY esomeprazole magnesium 40 mg oral capsule,delayed release(DR/EC) 07/19/2015 TAKE 1 CAPSULE BY MOUTH EVERY DAY Flonase Allergy Relief 50 mcg/actuation nasal spray,suspension 07/26/2015 inhale 1 puff by nasal route 2 times a day Suphedrin 30 mg oral tablet 07/26/2015 take 1-2 tablets by oral route every 4 hours OxyContin 80 mg oral tablet,oral only,ext.rel.12 hr 11/15/2015 take 1 tablet (80mg) by oral route every 12 hours for 30 days Percocet 10-325 mg oral tablet 11/15/2015 take 1-2 tabs every 4 to 6 [...] days Zithromax Z-Vasquez 250 mg oral tablet 07/26/2015 07/31/2015 take 2 tablets (500 mg) by oral route once daily for 1 day then 1 tablet (250 mg) by oral route once daily for 4 days Discontinued Name Start Date Discontinued Date [...] Low back pain Active 06/24/2011 Hyperlipidemia Active Vital Signs Date Time BP-Sys(mm[Hg] BP-Gwen(mm[Hg]) HR(bpm) RR(rpm) Temp WT HT HC BMI BSA BMI Percentile O2 Sat(%) 12/04/2015 3:01:00 PM 140 mmHg 88 mmHg [...] Status 11/15/2015 12:00 AM BIOPSY SKIN LESION Returned 06/08/2012 12:00 AM Depo-Medrol 80 Mg Im/C'hallie Reviewed 06/08/2012 12:00 AM Decadron, Per [address] [facility]# [id number] Reviewed 06/17/2013 12:00 AM LIPID PANEL Reviewed 09/17/2013 12:00 AM COMPREHEN METABOLIC PANEL Reviewed 09/17/2013 12:00 AM LIPID PANEL Reviewed 09/17/2013 12:00 AM Prostate Cancer Screening Reviewed 09/17/2013 12:00 AM Decadron, Per [address] [facility]# [id number] Reviewed 09/17/2013 12:00 AM Depo-Medrol 80 Mg [...] %MCV 94.0 fLMCH 32.20 pgMCHC 34.40 g/dLRDW CV 13.10 %MPV 9.10 fLPLT 203 %NEUT 41.50 %%LYMP 46.40 %%MONO 7.0 %%EOS 4.30 %%BASO 0.80 %#NEUT 2.63 #LYMP 2.93 #MONO 0.44 #EOS 0.27 #BASO 0.05 TRIGLYCERIDES 311.0 mg/dLCHOLESTEROL 342.0 mg/dLHDL 43.0 mg/ dLLDL (CALC) 237.0 mg/dLGLUCOSE 94.0 mg/dLSODIUM 134.0 mmol/LPOTASSIUM 4.40 mmol /LCHLORIDE 98.0 mmol/LCO2 29.0 mmol/LBUN 16.0 mg/dLCREATININE 1.10 mg/dLSGOT/ AST 22.0 IU/LSGPT/ALT 27.0 IU/LALK PHOS 86.0 IU/LTOTAL PROTEIN 7.90 g/dLALBUMIN 4.20 g/dLTOTAL BILI 0.40 mg/dLCALCIUM 10.30 mg/dLeGFR >60 mL/min/1.73 m2PSA TOTAL <0.06 NG/ML 05/25/2014 10:08 AM WBC 5.7 RBC 3.68 HGB 10.40 g/dLHCT 32.80 %MCV 89.0 fLMCH 28.30 pgMCHC 31.70 g/dLRDW CV 15.20 %MPV 9.30 fLPLT 316 %NEUT 42.60 %%LYMP 38.20 %%MONO 6.0 %%EOS 11.80 %%BASO 1.40 %#NEUT 2.43 #LYMP 2.18 #MONO 0.34 #EOS 0.67 #BASO 0.08 TRIGLYCERIDES 289.0 mg/dLCHOLESTEROL 247.0 mg/dLHDL 38.0 mg/ dLLDL (CALC) 151.0 mg/dLGLUCOSE 99.0 mg/dLSODIUM 139.0 mmol/LPOTASSIUM 3.50 mmol /LCHLORIDE 98.0 mmol/LCO2 29.0 mmol/LBUN 12.0 mg/dLCREATININE 1.50 mg/dLSGOT/ AST 13.0 IU/LSGPT/ALT 12.0 IU/LALK PHOS 106.0 IU/LTOTAL PROTEIN 8.0 g/dLALBUMIN 4.10 g/dLTOTAL BILI 0.30 mg/dLCALCIUM 10.0 mg/dLeGFR 48 TSH 2.370 uIU/mL 02/16/2015 9:25 AM WBC 5.9 RBC 4.43 HGB 13.90 g/dLHCT 42.10 %MCV 95.0 fLMCH 31.40 pgMCHC 33.0 g/dLRDW CV 14.0 %MPV 9.40 fLPLT 238 %NEUT 43.40 %%LYMP 40.50 % %MONO 7.90 %%EOS 7.50 %%BASO 0.70 %#NEUT 2.54 #LYMP 2.37 #MONO 0.46 #EOS 0.44 # BASO 0.04 VITAMIN B12 387.0 pg/mLPSA TOTAL <0.06 NG/MLIRON TOTAL 60.0 ug/ dLGLUCOSE 95.0 mg/dLSODIUM 138.0 mmol/LPOTASSIUM 4.0 mmol/LCHLORIDE 99.0 mmol/ LCO2 29.0 mmol/LBUN 12.0 mg/dLCREATININE 1.20 mg/dLSGOT/AST 19.0 IU/LSGPT/ALT 18.0 IU/LALK PHOS 108.0 IU/LTOTAL PROTEIN 7.60 g/dLALBUMIN 4.20 g/dLTOTAL BILI 0.50 mg/dLCALCIUM 9.70 mg/dLeGFR >60 mL/min/1.73 [id number] 282.0 mg/ dLCHOLESTEROL 272.0 mg/dLHDL 39.0 mg/dLLDL (CALC) 177.0 mg/dL History Of Immunizations Not available. History [...] Obstructive Pulmonary Disease Oct 03 2010 10:27AM Low Back Pain Apr 19 2011 11:17AM [...] Low Back Pain Dec 04 2015 3:07PM Payers Insurance Name Company Name Plan Name Plan Number Policy Number Policy Group Number Start Date BCBS [facility]bs [facility] [id number] August Medicare Part A Medicare RHC [id number] N/A Medicare Part A Medicare Part A [id number] Wednesday, 2012 Medicare Part A Medicare A Secondary [id number] N/A Medicare Part A Medicare - Lab/Xray [id number] Wednesday, December 26, 2012 History of Encounters Visit Date Visit Type Provider 12/04/2015 Office visit Dutch Bergman MD 11/15/2015 Office visit Dutch Bergman MD 08/16/2015 Office visit Dutch Bergman MD 07/26/2015 Office visit Ramandeep Dsouza CASINO SHIFT MANAGER 05/19/2015 Office visit Dutch Bergman MD 02/16/2015 Office visit Dutch Bergman MD 11/22/2014 Office visit Dutch Bergman MD 08/23/2014 Office visit Dutch Bergman MD 05/25/2014 Office visit 05/25/2014 Office visit Dutch Bergman MD 01/13/2014 Office visit Ramandeep Dsouza CASINO SHIFT MANAGER 12/22/2013 Office visit Dutch Bergman MD 09/17/2013 [...]
--- OUTSIDE RECORDS SUMMARY | 2017-03-13 12:13 | XMS REPORT ---
Author Author Dutch Bergman [facility] Address [address] [place], [place] [id number] Care Team Providers Care Mailing Machine Helper Name Role Phone Dutch Bergman PCP Unavailable [...] 12:00 AM VITAMIN B12 10/01/2016 12:00 AM CBC With Auto Differential 06/17/2013 [...] 05/29/2016 12:00 AM Decadron, Per 1 Mg [facility]# [id number] Reviewed 05/29/2016 12:00 AM Depo-Medrol, Per 80 Mg [facility]#[address]-21 Reviewed 06/08/2012 12:00 AM Depo-Medrol 80 Mg Im/C'hallie Reviewed 06/08/2012 12:00 AM Decadron, Per 1 Mg [facility]# [address]-76 Reviewed 06/17/2013 12:00 AM LIPID PANEL Reviewed 09/17/2013 12:00 AM COMPREHEN METABOLIC PANEL Reviewed 09/17/2013 12:00 AM LIPID PANEL Reviewed 09/17/2013 12:00 AM Prostate Cancer Screening Reviewed 09/17/2013 12:00 AM Decadron, Per 1 Mg [facility]# [address]-84 Reviewed 09/17/2013 12:00 AM Depo-Medrol 80 Mg [...] arthropods, initial encounter Oct 01 2016 12:00PM Payers Insurance Name Company Name Plan Name Plan Number Policy Number Policy Group Number Start Date BCBS [facility] [id number] August Medicare [facility] Medicare [facility] [id number] N/A Medicare Part A Medicare Part A [id number] Wednesday, 2012 Medicare Part A [id number] A Secondary [id number] N/A Medicare Part A Medicare - Lab/Xray [id number] Wednesday, December 26, 2012 History of Encounters Visit Date Visit Type Provider 08/29/2016 Office visit Dutch Bergman MD 06/03/2016 Office visit Dutch Bergman MD 05/29/2016 Office visit Dutch Bergman MD 05/23/2016 Office visit Ramandeep Dsouza HOMICIDE SQUAD CAPTAIN 02/27/2016 Office visit Dutch Bergman MD 12/04/2015 Office visit Dutch Bergman MD 11/15/2015 Office visit Dutch Bergman MD 08/16/2015 Office visit Dutch Bergman MD 07/26/2015 Office visit Ramandeep Dsouza HOMICIDE SQUAD CAPTAIN 05/19/2015 Office visit Dutch Bergman MD 02/16/2015 Office visit Dutch Bergman MD 11/22/2014 Office visit Dutch Bergman MD 08/23/2014 Office visit Dutch Bergman MD 05/25/2014 Office visit 05/25/2014 Office visit Dutch Bergman MD 01/13/2014 Office visit Ramandeep Dsouza HOMICIDE SQUAD CAPTAIN 12/22/2013 Office visit Dutch Bergman MD 09/17/2013 [...]
--- OUTSIDE RECORDS SUMMARY | 2017-03-13 12:14 | XMS REPORT ---
Author Author Dutch Bergman [facility] Address [address] [place], [place] [address] Care Team Providers Care Security Architect Name Role Phone Dutch Bergman PCP Unavailable Allergies and Adverse Reactions Name Reaction Notes PENICILLINS Plan of Treatment Planned Activity Comments Planned Date Planned Time Plan/Goal COMPLETE CBC W/AUTO DIFF WBC 06/17/2013 12:00 [...] by oral route once daily lidocaine 5 %(700 mg/patch) topical adhesive patch,medicated 07/25/2014 APPLY ONE PATCH LEAVE ON FOR 12 HOURS AND OFF FOR 12 HOURS escitalopram oxalate 20 mg oral tablet 09/23/2014 TAKE 2 TABLETS BY MOUTH EVERY DAY cyclobenzaprine 10 mg oral tablet 09/26/2014 TAKE 1 TABLET BY MOUTH THREE TIMES DAILY Nexium 40 mg oral capsule,delayed release(DR/EC) 10/17/2014 TAKE 1 CAPSULE BY MOUTH EVERY DAY cyclobenzaprine 10 mg oral tablet 01/23/2015 TAKE 1 TABLET BY MOUTH THREE TIMES [...] TWICE DAILY celecoxib 200 mg oral capsule 04/11/2015 TAKE 1 CAPSULE BY MOUTH TWICE DAILY Celebrex 200 mg oral capsule 05/15/2015 TAKE 1 CAPSULE BY MOUTH TWICE DAILY OxyContin 80 mg oral tablet,oral only,ext.rel.12 hr 05/19/2015 take 1 tablet (80mg) by oral route every 12 hours for 30 days Percocet 10-325 mg oral tablet 05/19/2015 take 1-2 tabs every 4 to 6 [...] CAPSULE BY MOUTH EVERY DAY Lidoderm 5 %(700 mg/patch) topical adhesive patch,medicated 05/15/20102009 APPLY ONE PATCH LEAVE ON FOR 12 [...] same time each day for 30 days Discontinued Name Start Date Discontinued Date [...] and evening Arthrotec 75 75-200 mg-mcg oral tablet,IR & delay rel,biphasic 04/19/2011 take 1 tablet by oral [...] DAILY Problem List Description Status Onset Low Back Pain Active 06/24/2011 Hyperlipidemia Active Vital Signs Date Time BP-Sys(mm[Hg] BP-Gwen(mm[Hg]) HR(bpm) RR(rpm) Temp WT HT HC BMI BSA BMI Percentile O2 Sat(%) 05/19/2015 8:38:00 AM 138 mmHg 82 mmHg [...] of Procedures Date Ordered Description Order Status 06/08/2012 12:00 AM Depo-Medrol 80 Mg Im/C'hallie Reviewed 06/08/2012 12:00 AM Decadron, Per 1 Mg [facility]# [id number] Reviewed 06/17/2013 12:00 AM LIPID PANEL Reviewed 09/17/2013 12:00 AM COMPREHEN METABOLIC PANEL Reviewed 09/17/2013 12:00 AM LIPID PANEL Reviewed 09/17/2013 12:00 AM Prostate Cancer Screening Reviewed 09/17/2013 12:00 AM Decadron, Per 1 Mg [facility]# [address]-85 Reviewed 09/17/2013 12:00 AM Depo-Medrol 80 Mg [...] BILI 0.50 mg/dLCALCIUM 9.70 mg/dLeGFR >60 mL/min/1.73 [id number] 282.0 mg/ dLCHOLESTEROL 272.0 mg/dLHDL 39.0 mg/dLLDL (CALC) 177.0 mg/dL History Of Immunizations Not available. History of Past Illness Name Date of Onset Comments Hyperlipidemia, unspecified Aug 31 2009 2:26PM Hyperlipidemia Low Back Pain 06/24/2011 Esophageal Reflux Dec 20 2009 10:35AM [...] Low Back Pain May 19 2015 8:43AM Payers Insurance Name Company Name Plan Name Plan Number Policy Number Policy Group Number [id number] August Medicare Part A Medicare A Secondary [id number] N/A Medicare Part A Medicare Part A [id number] Wednesday, 2012 History of Encounters Visit Date Visit Type Provider 05/19/2015 Office visit Dutch Bergman MD 02/16/2015 Office visit Dutch Bergman MD 11/22/2014 Office visit Dutch Bergman MD 08/23/2014 Office visit Dutch Bergman MD 05/25/2014 Office visit Dutch Bergman MD 01/13/2014 Office visit Ramandeep Dsouza PARKING ENFORCEMENT OFFICER 12/22/2013 Office visit Dutch Bergman MD 09/17/2013 Office visit Dutch Bergman MD 06/17/2013 Office visit Dutch Bergman MD 06/08/2012 Office visit Dutch Bergman MD 03/03/2012 Office visit Dutch Bergman MD 01/02/2012 Office visit Dutch Bergman MD 04/19/2011 Office visit Dutch Bergman MD 10/03/2010 Office visit Dutch Bergman MD 05/31/2010 Office visit Dutch Bergman MD 03/21/2010 Office visit Dutch Bergman MD 12/20/2009 Office visit Dtuch Bergman MD 08/31/2009 Office visit Dutch Bergman MD
--- OUTSIDE RECORDS SUMMARY | 2017-03-13 12:15 | XMS REPORT ---
Author Author Dutch Bergman [facility] Address [address] [place], [place] [address] Care Team Providers Care Pivot Maker Name Role Phone Dutch Bergman PCP Unavailable Allergies and Adverse Reactions Name Reaction Notes PENICILLINS Plan of Treatment Planned Activity Comments Planned Date Planned Time Plan/Goal MRI LUMBAR SPINE W/O DYE 02/27/2016 12:00 AM COMPLETE CBC W/AUTO DIFF WBC [...] CAPSULE BY MOUTH TWICE DAILY WITH MEALS celecoxib 200 mg oral capsule 06/08/2015 TAKE 1 CAPSULE BY MOUTH TWICE DAILY Celebrex 200 mg oral capsule 05/15/2015 TAKE 1 CAPSULE BY MOUTH TWICE DAILY cyclobenzaprine 10 mg oral tablet 06/27/2015 TAKE 1 TABLET BY MOUTH THREE TIMES DAILY escitalopram oxalate 20 mg oral tablet 07/13/2015 TAKE 2 TABLETS BY MOUTH EVERY DAY Flonase Allergy Relief 50 mcg/actuation nasal spray,suspension 07/26/2015 inhale 1 puff by nasal route 2 times a day Suphedrin 30 mg oral tablet 07/26/2015 take 1-2 tablets by oral route every 4 hours furosemide 40 mg oral tablet 12/21/2015 TAKE [...] capsule by oral route BID with meals OxyContin 80 mg oral tablet,oral only,ext.rel.12 hr 02/27/2016 take 1 tablet (80mg) by oral route every 12 hours for 30 days Percocet 10-325 mg oral tablet 02/27/2016 take 1-2 tabs every 4 to 6 [...] HC BMI BSA BMI Percentile O2 Sat(%) 02/27/2016 3:02:00 PM 152 mmHg 80 mmHg [...] lbs 68 in 40.4447 kg/m 2.406 m 08/23/2014 1:53:00 PM 148 mmHg 82 mmHg 76 bpm 16 rpm 97.6 F 266.625 lbs 68 in 40.54 kg/m2 2.41 m2 92 % 05/25/2014 9:06:00 AM 138 mmHg 74 mmHg 88 bpm 18 rpm 97.6 F 259 lbs 68 in 39.3804 kg/m 2.3741 m 01/13/2014 10:59:00 AM 118 mmHg 68 mmHg 69 bpm 18 rpm 97 F 271 lbs 68 in 41.20 kg/m2 2.43 m2 98 % 12/22/2013 8:32:00 AM 138 mmHg 72 mmHg 68 bpm 18 rpm 97.1 F 273 lbs 68 in 41.5091 kg/m 2.4374 m 09/17/2013 9:14:00 AM 154 mmHg 88 mmHg 78 bpm 18 rpm 97.3 F 260 lbs 68 in 39.53 kg/m2 2.38 m2 06/17/2013 2:58:00 PM 140 mmHg 82 mmHg 72 bpm 18 rpm 96.6 F 254 lbs 68 in 38.6202 kg/m 2.3511 m 06/08/2012 2:39:00 PM 138 mmHg 88 mmHg 78 bpm 18 rpm 97.1 F 262 lbs 68.5 in 39.26 kg/m2 2.40 m2 03/03/2012 3:07:00 PM 144 mmHg 82 mmHg 68 bpm 18 rpm 97.7 F 259 lbs 68.5 in 38.8076 kg/m 2.3828 m 01/02/2012 1:58:00 PM 160 mmHg 92 mmHg [...] 11/15/2015 12:00 AM BIOPSY SKIN LESION Returned 12/04/2015 12:00 AM MRI LUMBAR SPINE W/O DYE Returned 06/08/2012 12:00 AM Depo-Medrol 80 Mg Im/C'hallie Reviewed 06/08/2012 12:00 AM Decadron, Per 1 Mg [facility]# [address]-24 Reviewed 06/17/2013 12:00 AM LIPID PANEL Reviewed 09/17/2013 12:00 AM COMPREHEN METABOLIC PANEL Reviewed 09/17/2013 12:00 AM LIPID PANEL Reviewed 09/17/2013 12:00 AM Prostate Cancer Screening Reviewed 09/17/2013 12:00 AM Decadron, Per 1 Mg [facility]# [address]-36 Reviewed 09/17/2013 12:00 AM Depo-Medrol 80 Mg [...] BILI 0.50 mg/dLCALCIUM 9.70 mg/dLeGFR >60 mL/min/1.73 [id number] 282.0 mg/ dLCHOLESTEROL 272.0 mg/dLHDL 39.0 mg/dLLDL [...] Low Back Pain Feb 27 2016 3:04PM Payers Insurance Name Company Name Plan Name Plan Number Policy Number Policy Group Number Start Date [facility] [id number] August Medicare Part A Medicare RHC [id number] N/A Medicare Part A Medicare Part A [id number] Wednesday, 2012 Medicare Part A zzzMedicare A Secondary [id number] N/[id number] Medicare Part A Medicare - Lab/Xray [id number] Wednesday, December 26, 2012 History of Encounters Visit Date Visit Type Provider 02/27/2016 Office visit Dutch Bergman MD 12/04/2015 Office visit Dutch Bergman MD 11/15/2015 Office visit Dutch Bergman MD 08/16/2015 Office visit Dutch Bergman MD 07/26/2015 Office visit Ramandeep Dsouza DOG LICENSER 05/19/2015 Office visit Dutch Bergman MD 02/16/2015 Office visit Dutch Bergman MD 11/22/2014 Office visit Dutch Bergman MD 08/23/2014 Office visit Dutch Bergman MD 05/25/2014 Office visit 05/25/2014 Office visit Dutch Bergman MD 01/13/2014 Office visit Ramandeep Dsouza DOG LICENSER 12/22/2013 Office visit Dutch Bergman MD 09/17/2013 [...]
--- OUTSIDE RECORDS SUMMARY | 2017-03-13 12:16 | XMS REPORT ---
Author Author Ramandeep Dsouza Organization [facility] Address [address] [place], [place] [address] Care Team Providers Care Cabin Supervisor Name Role Phone Ramandeep Dsouza PCP Unavailable Allergies and Adverse Reactions Name [...] every 4 to 6 hrs prn pain cyclobenzaprine 10 mg oral tablet 06/27/2015 TAKE 1 TABLET BY MOUTH THREE TIMES DAILY escitalopram oxalate 20 mg oral tablet 07/13/2015 TAKE 2 TABLETS BY MOUTH EVERY DAY esomeprazole magnesium 40 mg oral capsule,delayed release(DR/EC) 07/19/2015 TAKE 1 CAPSULE BY MOUTH EVERY DAY Zithromax Z-Vasquez 250 mg oral tablet 07/26/2015 07/31/2015 take 2 tablets (500 mg) by oral route once daily for 1 day then 1 tablet (250 mg) by oral route once daily for 4 days Flonase Allergy Relief 50 mcg/actuation nasal spray,suspension 07/26/2015 inhale 1 puff by nasal route 2 times a day Suphedrin 30 mg oral tablet 07/26/2015 take 1-2 tablets by oral route every 4 hours Name Start Date Expiration Date SIG Comments [...] HC BMI BSA BMI Percentile O2 Sat(%) 07/26/2015 3:04:00 PM 142 mmHg 76 mmHg [...] AM Decadron, Per 1 Mg [facility]# [address]-79 Reviewed 06/17/2013 12:00 AM LIPID PANEL Reviewed 09/17/2013 12:00 AM COMPREHEN METABOLIC PANEL Reviewed 09/17/2013 12:00 AM LIPID PANEL Reviewed 09/17/2013 12:00 AM Prostate Cancer Screening Reviewed 09/17/2013 12:00 AM Decadron, Per 1 Mg [facility]# [address]-65 Reviewed 09/17/2013 12:00 AM Depo-Medrol 80 Mg [...] BILI 0.50 mg/dLCALCIUM 9.70 mg/dLeGFR >60 mL/min/1.73 [id number] 282.0 mg/ dLCHOLESTEROL 272.0 mg/dLHDL 39.0 mg/dLLDL [...] 8:43AM Acute URI Jul 26 2015 3:06PM Payers Insurance Name Company Name Plan Name Plan Number Policy Number Policy Group Number Start Date [facility] [id number] August Medicare Part A Medicare A Secondary [id number] N/A Medicare Part A Medicare Part A [id number] Wednesday, 2012 History of Encounters Visit Date Visit Type Provider 07/26/2015 Office visit Ramandeep Dsouza RECORDER GRAVITY PROSPECTING 05/19/2015 Office visit Dutch Bergman MD 02/16/2015 [...]
--- OUTSIDE RECORDS SUMMARY | 2017-03-13 12:17 | XMS REPORT ---
Author Author Dutch Bergman [facility] Address [address] [place], [place] [id number] Care Team Providers Care Kettle Chipper Name Role Phone Dutch Bergman PCP Unavailable [...] HC BMI BSA BMI Percentile O2 Sat(%) 11/15/2015 8:46:00 AM 132 mmHg 84 mmHg [...] Decadron, Per 1 Mg [facility]# [address]-11 Reviewed 06/17/2013 12:00 AM LIPID PANEL Reviewed 09/17/2013 12:00 AM COMPREHEN METABOLIC PANEL Reviewed 09/17/2013 12:00 AM LIPID PANEL Reviewed 09/17/2013 12:00 AM Prostate Cancer Screening Reviewed 09/17/2013 12:00 AM Decadron, Per 1 Mg [facility]# [address]-00 Reviewed 09/17/2013 12:00 AM Depo-Medrol 80 Mg [...] BILI 0.50 mg/dLCALCIUM 9.70 mg/dLeGFR >60 mL/min/1.73 [id number] 282.0 mg/ dLCHOLESTEROL 272.0 mg/dLHDL 39.0 mg/dLLDL [...] 8:51AM Actinic keratosis Nov 15 2015 9:28AM Payers Insurance Name Company Name Plan Name Plan Number Policy Number Policy Group Number Start Date BCBS [facility]cbs [facility] [id number] August Medicare Part A Medicare RHC [id number] N/A Medicare Part A Medicare Part A [id number] Wednesday, 2012 Medicare Part A Medicare A Secondary [id number] N/A Medicare Part A Medicare - Lab/Xray [id number] Wednesday, December 26, 2012 History of Encounters Visit Date Visit Type Provider 11/15/2015 Office visit Dutch Bergman MD 08/16/2015 Office visit Dutch Bergman MD 07/26/2015 Office visit Ramandeep Dsouza SEAT MENDER 05/19/2015 Office visit Dutch Bergman MD 02/16/2015 Office visit Dutch Bergman MD 11/22/2014 Office visit Dutch Bergman MD 08/23/2014 Office visit Dutch Bergman MD 05/25/2014 Office visit 05/25/2014 Office visit Dutch Bergman MD 01/13/2014 Office visit Ramandeep Dsouza SEAT MENDER 12/22/2013 Office visit Dutch Bergman MD 09/17/2013 [...]
--- OUTSIDE RECORDS SUMMARY | 2017-03-13 12:18 | XMS REPORT ---
Author Author Dutch Bergman [facility] Address [address] [place], [place] [address] Care Team Providers Care Security Shift Supervisor Name Role Phone Dutch Bergman PCP Unavailable Dutch Bergman PreferredProvider Unavailable Allergies and Adverse Reactions Name Reaction Notes PENICILLINS Plan of Treatment Planned Activity Comments Planned Date Planned Time Plan/Goal MRI lumbar spine wo contrast 02/27/2016 12:00 AM CBC With Auto Differential 08/29/2016 12:00 AM CMP 08/29/2016 12:00 AM Lipid profile 08/29/2016 12:00 AM CBC With Auto Differential 06/17/2013 [...] route every 12 hours for 30 days Name Start Date Expiration Date SIG Comments [...] Low Back Pain Active 06/24/2011 Hyperlipidemia Active Hypertension Active 05/23/2016 [...] AM MRI LUMBAR SPINE W/O DYE Returned 05/29/2016 12:00 AM COMPLETE CBC W/AUTO DIFF WBC Returned 05/29/2016 12:00 AM COMPREHEN METABOLIC PANEL Returned 05/29/2016 12:00 AM LIPID PANEL Returned 05/29/2016 12:00 AM Prostate Cancer Screening Returned 05/29/2016 12:00 AM Decadron, Per 1 Mg [facility]# [address]-26 Reviewed 05/29/2016 12:00 AM Depo-Medrol, Per 80 Mg [facility]#[address]-94 Reviewed 06/08/2012 12:00 AM Depo-Medrol 80 Mg Im/C'hallie Reviewed 06/08/2012 12:00 AM Decadron, Per 1 Mg [facility]# [address]-33 Reviewed 06/17/2013 12:00 AM LIPID PANEL Reviewed 09/17/2013 12:00 AM COMPREHEN METABOLIC PANEL Reviewed 09/17/2013 12:00 AM LIPID PANEL Reviewed 09/17/2013 12:00 AM Prostate Cancer Screening Reviewed 09/17/2013 12:00 AM Decadron, Per 1 Mg [facility]# [address]-63 Reviewed 09/17/2013 12:00 AM Depo-Medrol 80 Mg [...] of lumbar region Aug 29 2016 3:44PM Payers Insurance Name Company Name Plan Name Plan Number Policy Number Policy Group Number Start Date BCBS [facility] [id number] August Medicare C Medicare RHC [id number] N/A Medicare Part A Medicare Part A [id number] Wednesday, 2012 Medicare Part A zzzMedicare A Secondary [id number] N/A Medicare Part A Medicare - Lab/Xray [id number] Wednesday, December 26, 2012 History of Encounters [...]
--- OUTSIDE RECORDS SUMMARY | 2017-03-13 12:18 | XMS REPORT ---
Author Author Dutch Bergman [facility] Address [address] [place], [place] [address] Care Team Providers Care Urology Physician Name Role Phone Dutch Bergman PCP Unavailable Dutch Bergman PreferredProvider Unavailable Allergies and Adverse Reactions Name Reaction Notes PENICILLINS Plan of Treatment Planned Activity Comments Planned Date Planned Time Plan/Goal MRI lumbar spine wo contrast 02/27/2016 12:00 AM CBC With Auto Differential 05/29/2016 12:00 AM CMP 05/29/2016 12:00 AM Lipid profile 05/29/2016 12:00 AM CBC With Auto Differential 06/17/2013 [...] 1 TABLET BY MOUTH THREE TIMES DAILY Suphedrin 30 mg oral tablet 05/23/2016 take 1-2 tablets by oral route every 4 hours Flonase Allergy Relief 50 mcg/actuation nasal spray,suspension 05/23/2016 inhale 1 puff by nasal route 2 times a day lisinopril 10 mg oral tablet 05/23/2016 take 1 tablet (10 mg) by oral route once daily OxyContin 80 mg oral tablet,oral only,ext.rel.12 hr 05/29/2016 take 1 tablet (80mg) by oral route every 12 hours for 30 days Percocet 10-325 mg oral tablet 05/29/2016 take 1-2 tabs every 4 to 6 hrs prn pain Levaquin 500 mg oral tablet 06/03/2016 06/10/2016 take 1 tablet (500 mg) by oral route once daily for 7 days prednisone 20 mg oral tablet 06/03/2016 06/10/2016 take 2 tablets (40 mg) by oral route once daily for 7 days Name Start Date Expiration Date SIG [...] HC BMI BSA BMI Percentile O2 Sat(%) 06/03/2016 1:44:00 PM 132 mmHg 80 mmHg [...] SPINE W/O DYE Returned 05/29/2016 12:00 AM Decadron, Per 1 Mg [facility]# [address]-74 Reviewed 05/29/2016 12:00 AM Depo-Medrol, Per 80 Mg [facility]#[address]-96 Reviewed 06/08/2012 12:00 AM Depo-Medrol 80 Mg Im/C'hallie Reviewed 06/08/2012 12:00 AM Decadron, Per 1 Mg [facility]# [address]-22 Reviewed 06/17/2013 12:00 AM LIPID PANEL Reviewed 09/17/2013 12:00 AM COMPREHEN METABOLIC PANEL Reviewed 09/17/2013 12:00 AM LIPID PANEL Reviewed 09/17/2013 12:00 AM Prostate Cancer Screening Reviewed 09/17/2013 12:00 AM Decadron, Per 1 Mg [facility]# [address]-80 Reviewed 09/17/2013 12:00 AM Depo-Medrol 80 Mg [...] 4.43 HGB 13.90 g/dLHCT 42.10 %MCV 95.0 fLH 31.40 pgMCHC 33.0 g/dLRDW SD 49 RDW [...] mg/dLTOT CHOL/HDL 7.0 LDL (CALC) 177.0 mg/dL History Of Immunizations Not [...] 2016 8:37AM Bronchitis Jun 03 2016 1:50PM Payers Insurance Name Company Name Plan Name Plan Number Policy Number Policy Group Number Start Date BCBS Bcbs [facility] [id number] August Medicare Part A Medicare RHC [id number] N/A Medicare Part A Medicare Part A [id number] Wednesday, 2012 Medicare Part A zzzMedicare A Secondary [id number] N/A Medicare Part A Medicare - Lab/Xray [id number] Wednesday, December 26, 2012 History of Encounters Visit Date Visit Type Provider 06/03/2016 Office visit Dutch Bergman MD 05/29/2016 [...]
--- OUTSIDE RECORDS SUMMARY | 2017-03-13 12:20 | XMS REPORT ---
Author Author Dutch Bergman [facility] Address [address] [place], [place] [address] Care Team Providers Care Mortgage Field Inspector Name Role Phone Dutch Bergman PCP Unavailable [...] CBC W/AUTO DIFF WBC 05/30/2014 12:00 AM COMPLETE CBC W/AUTO DIFF WBC 02/16/2015 12:00 AM COMPREHEN METABOLIC PANEL 02/16/2015 12:00 AM LIPID PANEL 02/16/2015 12:00 AM VITAMIN B-12 02/16/2015 12:00 AM ASSAY OF IRON 02/16/2015 12:00 AM Medications Active Name Start Date Estimated Completion Date SIG Comments Fish Oil Oral Capsule 1,000 mg take 2 capsules by oral route QD before bed. Voltaren topical gel 1 % 07/05/2013 APPLY 2 GRAMS TO AFFECTED AREA TOPICALLY FOUR TIMES DAILY gabapentin oral capsule 300 mg 09/03/2013 TAKE 2 CAPSULES BY MOUTH FOUR TIMES DAILY gabapentin oral capsule 300 mg 01/03/2014 TAKE 2 CAPSULES BY MOUTH FOUR TIMES DAILY cyclobenzaprine oral tablet 10 mg 03/02/2014 TAKE 1 TABLET BY MOUTH THREE TIMES DAILY gabapentin oral capsule 300 mg 04/04/2014 TAKE 2 CAPSULES BY MOUTH FOUR TIMES DAILY aspirin oral tablet 325 mg take 1 tablet (325 mg) by oral route once daily Celebrex oral capsule 200 mg 06/08/2014 TAKE 1 CAPSULE BY MOUTH TWICE DAILY lidocaine topical adhesive patch,medicated 5 %(700 mg/patch) 07/25/2014 APPLY ONE PATCH LEAVE ON FOR 12 HOURS AND OFF FOR 12 HOURS escitalopram oxalate oral tablet 20 mg 09/23/2014 TAKE 2 TABLETS BY MOUTH EVERY DAY cyclobenzaprine oral tablet 10 mg 09/26/2014 TAKE 1 TABLET BY MOUTH THREE TIMES DAILY Nexium oral capsule,delayed release(DR/EC) 40 mg 10/17/2014 TAKE 1 CAPSULE BY MOUTH EVERY DAY cyclobenzaprine oral tablet 10 mg 01/23/2015 TAKE 1 TABLET BY MOUTH THREE TIMES DAILY furosemide oral tablet 40 mg 01/23/2015 TAKE 1 TABLET BY MOUTH DAILY atorvastatin oral tablet 40 mg 01/23/2015 TAKE 1 TABLET BY MOUTH EVERY NIGHT AT BEDTIME FOR 30 DAYS OxyContin oral tablet extended release 12 hr 80 mg 02/13/2015 03/15/2015 take 1 tablet (80 mg) by oral route every 12 hours for 30 days Percocet oral tablet 10-325 mg 02/13/2015 take 1-2 tabs every 4 to 6 hrs prn pain Cialis oral tablet 5 mg 02/16/2015 03/18/2015 take 1 tablet (5 mg) by oral route once daily at approximately the same time each day for 30 days Name Start Date Expiration Date SIG Comments Zithromax Oral Tablet 250 mg 05/31/2010 06/07/2010 take 2 tablets (500 mg) by oral route once daily for 7 days metaxalone Oral Tablet 800 mg 05/03/2010 05/17/2010 TAKE 1 TABLET BY MOUTH EVERY 8 HOURS Nexium Oral Capsule, Delayed Release(E.C.) 40 mg 05/01/2010 05/31/2010 TAKE 1 CAPSULE BY MOUTH EVERY DAY Lidoderm Topical Adhesive Patch, Medicated 5 %(700 mg/patch) 05/15/201006/14 APPLY ONE PATCH LEAVE ON FOR 12 HOURS AND OFF FOR 12 HOURS Celebrex Oral Capsule 200 mg 06/01/2010 07/01/2010 TAKE 1 CAPSULE BY MOUTH TWICE DAILY Lexapro Oral Tablet 20 mg 01/30/2011 03/01/2011 TAKE 2 TABLETS BY MOUTH EVERY DAY Voltaren Topical Gel 1 % 02/21/2011 03/23/2011 APPY 2 GRAM TO AFFECTED AREA TOPICALLY FOUR TIMES DAILY Betamethasone Dipropionate Topical Cream 0.05 % 05/27/2011 05/27/2011 apply a thin film to the affected skin areas by topical route 2 times per day Bactrim DS Oral Tablet 800-160 mg 01/14/2012 01/24/2012 take 1 tablet by oral route 3 times a day for 10 days Ambien oral tablet 10 mg 09/20/2013 10/20/2013 take 1 tablet (10 mg) by oral route once daily at bedtime for 30 days Lipitor oral tablet 40 mg 05/27/2014 12/23/2014 take 1 tablet by oral route once daily at bedtime for 30 days Discontinued Name Start Date Discontinued Date SIG Comments Skelaxin Oral Tablet 800 mg 05/25/2014 take 1 tablet (800 mg) by oral route 3 times per day as needed Oxycodone Oral Tablet 20 mg 11/02/2009 11/03/2009 take 1 tablet (20 mg) by oral route every 6 hours Advil Oral Tablet 200 mg 03/21/2010 06/17/2013 take 2 tablets (400 mg) by oral route every 6 hours as needed with food Gabapentin Oral Tablet 600 mg 04/05/2010 05/25/2014 TAKE 1 TABLET BY MOUTH FOUR TIMES DAILY Symbicort Inhalation HFA Aerosol Inhaler 160-4.5 mcg/Actuation 10/08/2010 inhale 2 puffs by inhalation route 2 times per day morning and evening Arthrotec 75 Oral Tablet, Delayed Release (E.C.) 75-200 mg-mcg 04/19/2011 take 1 tablet by oral route 2 times per day Celebrex Oral Capsule 200 mg 05/25/2014 take 1 capsule (200 mg) by oral route 2 times per day Medrol (Vasquez) Oral Tablets, Dose Pack 4 mg 01/02/2012 06/17/2013 take as directed Lotrisone Topical Cream 1-0.05 % 03/03/2012 08/23/2014 apply to the affected and surrounding areas of skin by topical route 2 times per day in the morning and evening Nexium oral capsule,delayed release(DR/EC) 40 mg 07/12/2013 08/23/2014 TAKE 1 CAPSULE BY MOUTH EVERY DAY escitalopram oral tablet 20 mg 09/28/2013 11/22/2014 TAKE 2 TABLETS BY MOUTH EVERY DAY triamcinolone acetonide topical cream 0.1 % 01/13/2014 08/23/2014 apply a thin layer to the affected area(s) by topical route 2 times per day Medrol (Vasquez) oral tablets,dose pack 4 mg 01/13/2014 08/23/2014 take as directed Lasix oral tablet 40 mg 08/23/2014 take 1 tablet (40 mg) by oral route once daily x 7days Poly-Iron oral capsule 150 mg iron 03/16/2014 08/23/2014 TAKE 1 CAPSULE BY MOUTH TWICE DAILY WITH MEALS potassium chloride oral capsule, extended release 10 mEq 03/16/2014 08/23/2014 TAKE 1 CAPSULE BY MOUTH TWICE DAILY furosemide oral tablet 40 mg 03/16/2014 08/23/2014 TAKE 1 TABLET BY MOUTH DAILY esomeprazole strontium oral capsule,delayed release(DR/EC) 49.3 mg 04/04/2014 TAKE 1 CAPSULE BY MOUTH EVERY DAY Transderm-Scop transdermal patch 72 hour 1.5 mg 04/25/2014 05/25/2014 apply 1 patch by transdermal route to the hairless area behind 1 ear at least 4 hr before effect is required; reapply every 3 days as needed atorvastatin oral tablet 20 mg 05/16/2014 08/23/2014 TAKE 1 TABLET BY MOUTH ONCE DAILY AT BEDTIME betamethasone, augmented topical cream 0.05 % 05/17/2014 08/23/2014 APPLY THIN FILM TO AFFECTED AREA BY TOPICAL ROUTE TWICE DAILY Problem List Description Status Onset Low Back Pain Active 06/24/2011 Hyperlipidemia Active Vital Signs Date Time BP-Sys(mm[Hg] BP-Gwen(mm[Hg]) HR(bpm) RR(rpm) Temp WT HT HC BMI BSA BMI Percentile O2 Sat(%) 02/16/2015 8:45:00 AM 124 mmHg 86 mmHg [...] F 260 lbs 68.5 in 38.96 kg/m2 2.3874 m 04/19/2011 11:16:00 AM 140 mmHg 88 mmHg 68 bpm 20 rpm 98.6 F 255 lbs 68.5 in 38.2083 kg/m 2.36 m2 10/03/2010 10:28:00 AM 122 mmHg [...] of Procedures Date Ordered Description Order Status 06/17/2013 12:00 AM LIPID PANEL Reviewed 09/17/2013 12:00 AM COMPREHEN METABOLIC PANEL Reviewed 09/17/2013 12:00 AM LIPID PANEL Reviewed 03/21/2010 12:00 AM X-RAY EXAM KNEE 4 OR MORE Reviewed 05/31/2010 12:00 AM CHEST X-RAY 2VW FRONTAL&LATL Reviewed 05/25/2014 12:00 AM COMPLETE CBC W/AUTO DIFF WBC Reviewed 05/25/2014 12:00 AM COMPREHEN METABOLIC PANEL Reviewed 05/25/2014 12:00 AM LIPID PANEL Reviewed 05/25/2014 12:00 AM ASSAY THYROID STIM HORMONE Reviewed Results Summary Data and Description Results [...] mg/dLCALCIUM 10.0 mg/dLeGFR 48 TSH 2.370 uIU/mL History Of Immunizations Not available. History of [...] 2015 8:49AM Hyperlipidemia Feb 16 2015 8:49AM Payers Insurance Name Company Name Plan Name Plan Number Policy Number Policy Group Number Start Date Bcbs Bcbs [facility] [id number] August Medicare Part A Medicare A Secondary [id number] N/A Medicare Part A Medicare Part A [id number] Wednesday, 2012 History of Encounters Visit Date Visit Type Provider 02/16/2015 Office visit Dutch Bergman MD 11/22/2014 [...]
--- OUTSIDE RECORDS SUMMARY | 2017-03-13 12:20 | XMS REPORT ---
Author Author Dutch Bergman [facility] Address [address] [facility] [address] [place], [place] [id number] Care Team Providers Care Pit Shoveler Name Role Phone Dutch Bergman PCP Unavailable [...] 11/25/2016 TAKE 1 TABLET BY MOUTH DAILY Percocet 10-325 mg oral tablet 12/02/2016 take 1-2 tabs every 4 to 6 hrs prn pain potassium chloride 10 mEq oral tablet extended release 12/24/2016 TAKE 1 TABLET BY MOUTH TWICE DAILY gabapentin 300 mg oral capsule 12/24/2016 TAKE 2 CAPSULES BY MOUTH FOUR TIMES DAILY Poly-Iron 150 mg iron oral capsule 01/06/2017 TAKE 1 CAPSULE BY MOUTH TWICE DAILY WITH MEALS Voltaren 1 % topical gel 01/20/2017 APPLY 2 GRAMS TO AFFECTED AREA TOPICALLY FOUR TIMES DAILY esomeprazole magnesium 40 mg oral capsule,delayed release(DR/EC) 01/24/2017 TAKE 1 CAPSULE BY MOUTH DAILY esomeprazole magnesium 40 mg oral capsule,delayed release(DR/EC) 01/24/2017 TAKE 1 CAPSULE BY MOUTH DAILY cyclobenzaprine 10 mg oral tablet 02/24/2017 TAKE 1 TABLET BY MOUTH THREE TIMES DAILY escitalopram oxalate 20 mg oral tablet 02/24/2017 TAKE 2 TABLETS BY MOUTH EVERY DAY esomeprazole magnesium 40 mg oral capsule,delayed release(DR/EC) 03/03/2017 TAKE 1 CAPSULE BY MOUTH DAILY Lipitor 20 mg oral tablet 03/04/2017 02/27/2018 take 1 tablet (20 mg) by oral route once daily for 30 days OxyContin 80 mg oral tablet,oral only,ext.rel.12 hr 03/04/2017 04/03/2017 take 1 tablet (80mg) by oral route [...] meals Zithromax Z-Vasquez 250 mg oral tablet 01/13/2017 05/28/2016 take 2 tablets (500 mg) by [...] Flonase Allergy Relief 50 mcg/actuation nasal spray,suspension 01/13/20172016 inhale 1 puff by nasal route 2 times a day Problem List Description Status Onset Low back pain Active 06/24/2011 Hyperlipidemia Active Hypertension Active 05/23/2016 Vital Signs Date Time BP-Sys(mm[Hg] BP-Gwen(mm[Hg]) HR(bpm) RR(rpm) Temp WT HT HC BMI BSA BMI Percentile O2 Sat(%) 03/04/2017 8:13:00 AM 118 mmHg 74 mmHg 71 bpm 14 rpm 96.3 F 252 lbs 69 in 37.21 kg/m2 2.36 m2 94 % 12/02/2016 8:58:00 AM 128 mmHg 78 mmHg 71 bpm 16 rpm 96.6 F 252.375 lbs 69 in 37.2689 kg/m 2.3607 m 93 % 08/29/2016 3:42:00 PM 124 mmHg [...] 05/29/2016 12:00 AM Decadron, Per 1 Mg [facility]# [address]-29 Reviewed 05/29/2016 12:00 AM Depo-Medrol, Per 80 Mg [facility]#[address]-81 Reviewed 08/29/2016 12:00 AM LIPID PANEL Reviewed 10/01/2016 12:00 AM COMPLETE CBC W/AUTO DIFF WBC Reviewed 10/01/2016 12:00 AM COMPREHEN METABOLIC PANEL Reviewed 06/08/2012 12:00 AM Depo-Medrol 80 Mg Im/C'hallie Reviewed 06/08/2012 12:00 AM Decadron, Per 1 Mg [facility]# [address]-33 Reviewed 06/17/2013 12:00 AM LIPID PANEL Reviewed 09/17/2013 12:00 AM COMPREHEN METABOLIC PANEL Reviewed 09/17/2013 12:00 AM LIPID PANEL Reviewed 09/17/2013 12:00 AM Prostate Cancer Screening Reviewed 09/17/2013 12:00 AM Decadron, Per 1 Mg [facility]# [address]-99 Reviewed 09/17/2013 12:00 AM Depo-Medrol 80 Mg [...] AM ASSAY OF IRON Reviewed Results Summary Date and Description Results 09/17/2013 10:18 AM WBC [...] Low Back Pain Dec 02 2016 9:03AM Hypertension Mar 04 2017 8:14AM Hyperlipidemia, unspecified Mar 04 2017 8:14AM Low Back Pain Mar 04 2017 8:14AM Payers Insurance Name Company Name Plan Name Plan Number Policy Number Policy Group Number Start Date [facility] [id number] August Medicare [facility] Medicare [facility] [id number] Wednesday, 2012 Medicare Part A Medicare Part A [id number] Wednesday, 2012 Medicare Part A zzzMedicare A Secondary [id number] N/A Medicare Part A Medicare - Lab/Xray [id number] Wednesday, December 26, 2012 History of Encounters Visit Date Visit Type Provider 03/04/2017 Office visit Dutch Bergman MD 12/02/2016 Office visit Dutch Bergman MD 08/29/2016 [...]
--- OUTSIDE RECORDS SUMMARY | 2017-03-13 12:21 | XMS REPORT ---
Author Author Dutch Bergman [facility] Address [address] [place], [place] [id number] Care Team Providers Care Graduate Assistant Name Role Phone Dutch Bergman PCP Unavailable Allergies and Adverse Reactions Name Reaction Notes PENICILLINS Plan of Treatment Planned Activity Comments Planned Date Planned Time Plan/Goal MRI LUMBAR SPINE W/O DYE 02/27/2016 12:00 AM COMPLETE CBC W/AUTO DIFF WBC 05/29/2016 12:00 AM COMPREHEN METABOLIC PANEL 05/29/2016 12:00 AM LIPID PANEL 05/29/2016 12:00 AM COMPLETE CBC W/AUTO DIFF [...] TIMES DAILY Nexium 40 mg oral capsule,delayed release(/EC) 10/17/2014 TAKE 1 CAPSULE BY MOUTH EVERY [...] DAILY esomeprazole magnesium 40 mg oral capsule,delayed release(/EC) 02/02/2016 TAKE 1 CAPSULE BY MOUTH EVERY [...] 8 HOURS Nexium 40 mg oral capsule,delayed release(/EC) 05/01/2010 05/31/2010 TAKE 1 CAPSULE BY MOUTH [...] HC BMI BSA BMI Percentile O2 Sat(%) 05/29/2016 8:32:00 AM 120 mmHg 82 mmHg [...] 06/08/2012 12:00 AM Decadron, Per 1 Mg [facility]# [address]-41 Reviewed 06/17/2013 12:00 AM LIPID PANEL Reviewed 09/17/2013 12:00 AM COMPREHEN METABOLIC PANEL Reviewed 09/17/2013 12:00 AM LIPID PANEL Reviewed 09/17/2013 12:00 AM Prostate Cancer Screening Reviewed 09/17/2013 12:00 AM Decadron, Per 1 Mg [facility]# [address]-61 Reviewed 09/17/2013 12:00 AM Depo-Medrol 80 Mg [...] BILI 0.50 mg/dLCALCIUM 9.70 mg/dLeGFR >60 mL/min/1.73 [id number] 282.0 mg/ dLCHOLESTEROL 272.0 mg/dLHDL 39.0 mg/dLLDL [...] 2016 8:37AM Hypertension May 29 2016 8:37AM Payers Insurance Name Company Name Plan Name Plan Number Policy Number Policy Group Number Start Date BCBS [facility] [id number] August Medicare Part A Medicare RHC [id number] N/A Medicare Part A Medicare Part A [id number] Wednesday, 2012 Medicare Part A zzzMedicare A Secondary [id number] N/A Medicare Part A Medicare - Lab/Xray [id number] Wednesday, December 26, 2012 History of Encounters Visit Date Visit Type Provider 05/29/2016 Office visit Dutch Bergman MD 05/23/2016 Office visit Ramandeep Dsouza DYE AND CHEMICAL COORDINATOR 02/27/2016 Office visit Dutch Bergman MD 12/04/2015 Office visit Dutch Bergman MD 11/15/2015 Office visit Dutch Bergman MD 08/16/2015 Office visit Dutch Bergman MD 07/26/2015 Office visit Ramandeep Dsouza DYE AND CHEMICAL COORDINATOR 05/19/2015 Office visit Dutch Bergman MD 02/16/2015 Office visit Dutch Bergman MD 11/22/2014 Office visit Dutch Bergman MD 08/23/2014 Office visit Dutch Bergman MD 05/25/2014 Office visit 05/25/2014 Office visit Dutch Bergman MD 01/13/2014 Office visit Ramandeep Dsouza DYE AND CHEMICAL COORDINATOR 12/22/2013 Office visit Dutch Bergman MD 09/17/2013 [...]
[2017-03-13] MEDS: ENOXAPARIN 40 MG/0.4 ML (LOVENOX) SYR SC SCH (12:22)
--- OUTSIDE RECORDS SUMMARY | 2017-03-13 12:22 | XMS REPORT ---
Author Author Dutch Bergman [facility] Address [address] [place], [place] [id number] Care Team Providers Care Recruiter Manager Name Role Phone Dutch Bergman PCP Unavailable [...] (325 mg) by oral route once daily Lipitor oral tablet 40 mg 05/27/2014 12/23/2014 take 1 tablet by oral route once daily at bedtime for 30 days Celebrex oral capsule 200 mg 06/08/2014 TAKE [...] TAKE 1 CAPSULE BY MOUTH EVERY DAY OxyContin oral tablet extended release 12 hr 80 mg 11/22/2014 12/22/2014 take 1 tablet (80 mg) by oral route every 12 hours for 30 days Percocet oral tablet 10-325 mg 11/22/2014 take 1-2 tabs every 4 to 6 [...] HC BMI BSA BMI Percentile O2 Sat(%) 11/22/2014 10:25:00 AM 132 mmHg 84 mmHg [...] Low Back Pain Nov 22 2014 10:03AM Payers Insurance Name Company Name Plan Name Plan Number Policy Number Policy Group Number Start Date [facility] [id number] August Medicare Part A Medicare A Secondary [id number] N/A Medicare Part A Medicare Part A [id number] Wednesday, 2012 History of Encounters Visit Date Visit Type Provider 11/22/2014 Office visit Dutch Bergman MD 08/23/2014 Office visit Dutch Bergman MD 05/25/2014 Office visit Dutch Bergman MD 01/13/2014 Office visit Ramandeep Dsouza DISTILLATION OPERATOR 12/22/2013 Office visit Dutch Bergman MD 09/17/2013 [...]
--- OUTSIDE RECORDS SUMMARY | 2017-03-13 12:22 | XMS REPORT ---
Author Author Dutch Bergman [facility] Address [address] [place], [place] [address] Care Team Providers Care Pedicurist Name Role Phone Dutch Bergman PCP Unavailable [...] OxyContin 80 mg oral tablet,oral only,ext.rel.12 hr 08/16/2015 take 1 tablet (80mg) by oral route every 12 hours for 30 days Percocet 10-325 mg oral tablet 08/16/2015 take 1-2 tabs every 4 to 6 [...] HC BMI BSA BMI Percentile O2 Sat(%) 08/16/2015 9:20:00 AM 142 mmHg 80 mmHg [...] 12:00 AM Decadron, Per 1 Mg [facility]# [address]-78 Reviewed 06/17/2013 12:00 AM LIPID PANEL Reviewed 09/17/2013 12:00 AM COMPREHEN METABOLIC PANEL Reviewed 09/17/2013 12:00 AM LIPID PANEL Reviewed 09/17/2013 12:00 AM Prostate Cancer Screening Reviewed 09/17/2013 12:00 AM Decadron, Per 1 Mg [facility]# [address]-01 Reviewed 09/17/2013 12:00 AM Depo-Medrol 80 Mg [...] BILI 0.50 mg/dLCALCIUM 9.70 mg/dLeGFR >60 mL/min/1.73 [id number] 282.0 mg/ dLCHOLESTEROL 272.0 mg/dLHDL 39.0 mg/dLLDL [...] Chronic back pain Aug 16 2015 9:27AM Payers Insurance Name Company Name Plan Name Plan Number Policy Number Policy Group Number Start Date [facility] [id number] August Medicare Part A Medicare A Secondary [id number] N/A Medicare Part A Medicare Part A [id number] Wednesday, 2012 History of Encounters Visit Date Visit Type Provider 08/16/2015 Office visit Dutch Bergman MD 07/26/2015 Office visit Ramandeep Dsouza HOGSHEAD MAT INSPECTOR 05/19/2015 Office visit Dutch Bergman MD 02/16/2015 Office visit Dutch Bergman MD 11/22/2014 Office visit Dutch Bergman MD 08/23/2014 Office visit Dutch Bergman MD 05/25/2014 Office visit 05/25/2014 Office visit Dutch Bergman MD 01/13/2014 Office visit Ramandeep Dsouza HOGSHEAD MAT INSPECTOR 12/22/2013 Office visit Dutch Bergman MD 09/17/2013 Office visit Dutch Bregman MD 06/17/2013 Office visit Dutch Bergman MD [...]
--- OUTSIDE RECORDS SUMMARY | 2017-03-13 12:23 | XMS REPORT ---
Author Ramandeep Barrett Organization [facility] Address [address] [place], [place] [address] Care Team Providers Care Martial Arts Instructor Name Role Phone Ramandeep Dsouza PCP Unavailable [...] every 4 to 6 hrs prn pain escitalopram oxalate 20 mg oral tablet 05/02/2016 [...] by nasal route 2 times a day Zithromax Z-Vasquez 250 mg oral tablet 05/23/2016 05/28/2016 take 2 tablets (500 mg) by oral route once daily for 1 day then 1 tablet (250 mg) by oral route once daily for 4 days lisinopril 10 mg oral tablet 05/23/2016 take 1 tablet (10 mg) by oral route once daily Name Start Date Expiration Date SIG Comments [...] HC BMI BSA BMI Percentile O2 Sat(%) 05/23/2016 8:19:00 AM 146 mmHg 78 mmHg [...] 06/08/2012 12:00 AM Decadron, Per 1 Mg [facility]# [address]-44 Reviewed 06/17/2013 12:00 AM LIPID PANEL Reviewed 09/17/2013 12:00 AM COMPREHEN METABOLIC PANEL Reviewed 09/17/2013 12:00 AM LIPID PANEL Reviewed 09/17/2013 12:00 AM Prostate Cancer Screening Reviewed 09/17/2013 12:00 AM Decadron, Per 1 Mg [facility]# [address]-30 Reviewed 09/17/2013 12:00 AM Depo-Medrol 80 Mg [...] BILI 0.50 mg/dLCALCIUM 9.70 mg/dLeGFR >60 mL/min/1.73 [id number] 282.0 mg/ dLCHOLESTEROL 272.0 mg/dLHDL 39.0 mg/dLLDL [...] upper respiratory infection May 23 2016 8:21AM Payers Insurance Name Company Name Plan Name Plan Number Policy Number Policy Group Number Start Date BCBS [facility] [id number] August Medicare Part A Medicare RHC [id number] N/A Medicare Part A Medicare Part A [id number] Wednesday, 2012 Medicare Part A zzzMedicare A Secondary [id number] N/A Medicare Part A Medicare - Lab/Xray [id number] Wednesday, December 26, 2012 History of Encounters Visit Date Visit Type Provider 05/23/2016 Office visit Ramandeep Dsouza APRN 02/27/2016 Office visit Dutch Bergman MD 12/04/2015 Office visit Dutch Bergman MD 11/15/2015 Office visit Dutch Bergman MD 08/16/2015 Office visit Dutch Bergman MD 07/26/2015 Office visit Ramandeep Dsouza AUTO APPRENTICE MECHANIC 05/19/2015 Office visit Dutch Bergman MD 02/16/2015 [...] Dutch Bergman MD 08/31/2009 Office visit Dutch Bergmna MD
--- OUTSIDE RECORDS SUMMARY | 2017-03-13 12:24 | XMS REPORT | Continuity of Care Document ---
Author Author [facility] Organization [facility] Address Unknown Phone Unavailable Allergies Active Description Code Type Severity Reaction Onset Reported/Identified Relationship to Patient Clinical Status Yes Penicillins [id number] Drug Allergy Unknown N/A 04/11/2014 Medications Problems Date Dx Coded Attending Type Code Diagnosis Diagnosed By 03/29/2010 Ot 844.9 03/29/2010 Ot 959.7 03/29/2010 Ot E000.8 03/29/2010 Ot E849.0 03/29/2010 Ot E927.8 11/23/2013 FABIO BENSON BALL POINTS INSPECTOR Ot V43.65 11/23/2013 FABIO BENSON BALL POINTS INSPECTOR Ot V54.81 11/23/2013 FABIO BENSON BALL POINTS INSPECTOR Ot V57.1 01/21/2014 AVNI DO, DARYA F Ot V43.65 01/21/2014 AVNI DO, DARYA F Ot V54.81 01/21/2014 AVNI DO, DARYA F Ot V57.1 02/24/2014 AVNI DO, DARYA F Ot 272.0 02/24/2014 AVNI DO, DARYA F Ot 530.81 02/24/2014 AVNI DO, DARYA F Ot 716.90 02/24/2014 AVNI DO, DAYRA F Ot 996.66 02/24/2014 AVNI DO, DARYA F Ot V43.65 04/13/2014 AVNI DO, DARYA F Ot 272.0 04/13/2014 AVNI DO, DARYA F Ot 276.8 04/13/2014 AVNI DO, DARYA F Ot 285.1 04/13/2014 AVNI DO, DARYA F Ot 530.81 04/13/2014 AVNI DO, DARYA F Ot 716.90 04/13/2014 AVNI DO, DARYA F Ot 736.6 04/13/2014 AVNI DO, DARYA F Ot V43.65 12/14/2014 AVNI DO, DARYA F Ot 996.66 12/14/2014 AVNI DO, DARYA F Ot V43.65 12/14/2014 AVNI DO, DARYA F Ot 996.66 12/14/2014 AVNI DO, DARYA Dupree Ot V43.65 12/14/2014 AVNI DO, DARYA F Ot V58.81 12/14/2014 AVNI DO, DARYA Dupree Ot 711.06 12/14/2014 AVNI DO, DARYA Dupree Ot 996.66 12/14/2014 AVNI DO, DARYA Dupree Ot V43.65 12/14/2014 AVNI DO, DARYA Dupree Ot V72.63 12/14/2014 AVNI DO, DARYA Dupree Ot V72.81 12/14/2014 AVNI DO, DARYA Dupree Ot V74.8 02/06/2015 AVNI DO, DARYA Dupree Ot 996.66 02/06/2015 AVNI DO, DARYA Dupree Ot V43.65 02/06/2015 AVNI DO, DARYA Durpee Ot 996.66 02/06/2015 AVNI DO, DARYA Dupree Ot V43.65 02/06/2015 AVNI DO, DARYA Dupree Ot V58.81 02/06/2015 AVNI DO, DARYA Dupree Ot 711.06 02/06/2015 AVNI DO, DARYA Dupree Ot 996.66 02/06/2015 AVNI DO, DARYA Dupree Ot V43.65 02/06/2015 AVNI DO, DARYA Dupree Ot V72.63 02/06/2015 AVNI DO, DARYA Dupree Ot V72.81 02/06/2015 AVNI DO, DARYA Dupree Ot V74.8 Procedures Results Encounters ACCT No. Visit Date/Time Discharge Status Pt. Type Provider Facility Loc./Unit Complaint [id number] 04/11/2014 08:55:00 2013 19:03:00 DIS Inpatient DARYA HOLLY DO [facility] SURGICAL [id number] 04/06/2014 12:14:00 2013 23:59:59 CLS Outpatient DARYA HOLLY DO [facility] PREOP [id number] 03/30/2014 14:55:00 2013 23:59:59 CLS Outpatient DARYA HOLLY DO [facility] LABNPT [id number] 03/30/2014 14:50:00 2013 23:59:59 CLS Outpatient DARYA HOLLY DO [facility] PREOP [id number] 02/22/2014 10:39:00 2013 16:30:00 DIS Inpatient DARYA HOLLY DO [facility] SURGICAL [id number] 02/09/2014 12:50:00 2013 23:59:59 CLS Outpatient DARYA HOLLY DO [facility] [id number] 02/06/2014 06:48:00 2013 23:59:59 CLS Outpatient [id number] 02/05/2014 10:47:00 2013 23:59:59 CLS Outpatient [id number] 02/04/2014 13:16:00 2013 23:59:59 CLS Outpatient DARYA HOLLY DO [facility] LABNPT [id number] 01/12/2014 09:26:00 2013 08:35:00 DIS Outpatient DARYA HOLLY DO [facility] REHAB [id number] 11/15/2013 15:15:00 2013 17:00:00 DIS Outpatient FABIO BENSON APRN [facility] REHAB [id number] 03/29/2010 20:19:00 Document Registration [id number] 03/04/2017 08:58:19 03/04/2017 23: 59:59 CLS Outpatient Dutch Bergman [id number] 12/02/2016 09:45:48 12/02/2016 23: 59:59 CLS Outpatient Dutch Bergman [id number] 08/29/2016 16:10:34 08/29/2016 23: 59:59 CLS Outpatient Dutch Bergman [id number] 07/01/2016 15:04:23 07/01/2016 23: 59:59 CLS Outpatient Dutch Bergman [id number] 05/23/2016 09:07:42 05/23/2016 23: 59:59 CLS Outpatient Ramandeep Dsouza [id number] 02/27/2016 15:58:08 02/27/2016 23: 59:59 CLS Outpatient Dutch Bergman [id number] 08/16/2015 10:15:03 08/16/2015 23: 59:59 CLS Outpatient HetlingerDutch [id number] 07/26/2015 16:00:53 07/26/2015 23: 59:59 CLS Outpatient Ramandeep Dsouza [id number] 05/19/2015 09:31:39 05/19/2015 23: 59:59 CLS Outpatient HetlingDutch javier [id number] 03/06/2015 22:32:21 03/06/2015 23: 59:59 CLS Outpatient HetlingDutch javier [id number] 11/22/2014 10:48:43 11/22/2014 23: 59:59 CLS Outpatient HetlingDutch javier [id number] 08/23/2014 14:46:18 08/23/2014 23: 59:59 CLS Outpatient HetlingDutch javier [id number] 05/25/2014 09:54:17 05/25/2014 23: 59:59 CLS Outpatient MelissalingDutch javier [id number] 01/13/2014 11:53:52 01/13/2014 23: 59:59 CLS Outpatient MeetRamandeep [id number] 12/22/2013 09:31:10 12/22/2013 23: 59:59 CLS Outpatient MelissalingDutch javier [id number] 09/17/2013 10:06:28 09/17/2013 23: 59:59 BRIAN Outpatient Dutch Bergman
[2017-03-13] MEDS ORDERED: CYAN25003 SL (12:28)
[2017-03-13] MEDS ORDERED: OXYC-202 PO (12:28)
[2017-03-13] MEDS ORDERED: IRON150C13 PO (12:28)
[2017-03-13] MEDS ORDERED: GABA-488 PO (12:28)
[2017-03-13] MEDS: RT-ALBUTEROL/IPRATROPIUM 3 ML (DUONEB) VIAL INH SCH ×3 (12:37→20:01)
--- NOTE | 2017-03-13 13:10 | Consultation-Cardiology ---
HPI-Cardiology Cardiology Consultation: Date of Consultation 03/13/17 Time Seen by Provider: 12:45 Date of Admission Attending Physician Keisha Gandara DO Admitting Physician Stephanie,Local Physician Consulting Physician PAULO HIGGINS MD, MA, FACP, FACC, FSCAI, CCDS HPI: Chief Complaint: LLE swelling Cellulitis Mr. Palomino is a 61 year old male admitted as a direct admit from [facility] to this facility d/t left lower extremity cellulitis with probable sepsis and mental status changes. He is currently mentally obtunded. His daughter is at the bedside and assisting with information. She states he was having some confusion starting on Friday night with fever and chills. She states his spouse called EMS this morning d/t left lower extremity swelling, redness, fever, chills and altered mental status. She reports he has been "in and out of consciousness" throughout the morning. She states he has had 5 surgeries to his left knee d/t joint infection, with the last surgery being 2 years ago. He has previously followed with Dr. Muniz of ortho services. She reports he has not been c/o CP, SOB or palpitations. She reports the swelling and redness of the left leg was present starting this morning. He opens his eyes and withdraws to tactile stimuli, but does not follow commands. QHE-Trtqfh-Hjewwn Hx Patient Social History Alcohol Use: Denies Use Recreational Drug Use: No Smoking Status: Former Smoker (quit 3 yrs ago) Type Used: Cigarettes Recent Foreign Travel: No Recent Infectious Disease Expo: No Physical Abuse Screen: No Sexual Abuse: No Immunizations Up To Date Tetanus Booster (TDap): Less than 5yrs Past Medical History PMH As described under Assessment. Family Medical History Family History: Cardiovascular disease 19 FATHER Hypertension G8 BROTHER Respiratory disorder 19 FATHER Allergies and Home Medications Allergies Coded Allergies: Penicillins (Unverified Allergy, Unknown, 04/11/14) Home Medications Atorvastatin 20 Mg Tablet, 20 MG PO 1630, (Reported) Celecoxib 200 Mg Capsule, 200 MG PO 0430,1630, (Reported) Cyanocobalamin (Vitamin B-12) 2,500 Mcg Tab.subl, 2,500 MCG SL 1130,1630, ( Reported) Cyclobenzaprine Hcl 10 Mg Tablet, 10 MG PO 2230,0430, (Reported) Escitalopram Oxalate 20 Mg Tablet, 20 MG PO 0430,1629, (Reported) Esomeprazole Mag Trihydrate 40 Mg Capsule.dr, 40 MG PO 429, (Reported) Ezetimibe 10 Mg Tablet, 10 MG PO 1629, (Reported) Furosemide 40 Mg Tablet, 40 MG PO 1629, (Reported) Gabapentin 300 Mg Capsule, 600 MG PO 1129,1629, (Reported) TAKES 2 (300MG) CAPSULES Gabapentin 300 Mg Capsule, 1,200 MG PO 2229, (Reported) TAKES 4 (300MG) CAPSULES Iron Polysaccharide Complex 150 Mg Capsule, 150 MG PO 429,1629, (Reported) Levomefolate/B6/B12/Algal Oil 1 Each Capsule, 1 CAP PO 1629, (Reported) Lidocaine 1 Ea Patch, 1 PATCH TOP DAILY PRN for BACK PAIN, (Reported) Lisinopril 10 Mg Tablet, 10 MG PO 2229, (Reported) Oxycodone HCl/Acetaminophen 1 Each Tablet, 2 TAB PO 1129,2229, (Reported) Oxycodone Hcl 80 Mg Tab.sr.12h, 80 MG PO , (Reported) Potassium Chloride 10 Meq Tablet.er, 10 MEQ PO 1129,2229, (Reported) Physical Exam-Cardiology Physical Exam Vital Signs/I&O Vital Sign - Last 12Hours 03/13/17 03/13/17 10:20 12:00 Temp 100.8 Pulse 90 Resp 20 B/P (MAP) 129/66 Pulse Ox 97 94 O2 Delivery Nasal Cannula O2 Flow Rate 3.00 Capillary Refill : Constitutional: other (mentally obtunded) HEENT: No discharge, hearing is well preserved, oral hygience is good, No ulceration, No xanthelasmas are seen Neck: No carotid bruit, carotid pulses are 2 + bilaterally Respiratory: chest expansion is symmetric, chest is bilaterally symmetric, other (diminished bases bilat) Cardiovascular: regular rate-rhythm, No JVD, S1 and S2 Gastrointestinal: soft, round, audible bowel sounds Rectal: deferred Extremities: other (Left lower extremity from the knee to foot with 2-3(+) edema, redness and warmth; mild RLE edema) Neurologic/Psychiatric: other (moves extermities) Skin: other (as above) A/P-Cardiology Assessment/Admission Diagnosis LLE cellulitis with suspected sepsis Acute mental status changes likely due to septicemia H/o card cath in or around 1999 after which he was told he did not have any significant CAD ([facility], [place], [place]) HLP - statin tx - followed by PCP Suspected sleep apnea H/O left knee TKR with revisions - most recent revision in [address] Muniz (h/o infected joint in the past) Acute on chronic renal insufficiency Chronic narcotic analgesic use Discussion and Recomendations Based on history (no angina, no CHF) the risk of noncardiac surgery is estimated to be low to intermediate. It would be reasonable to proceed with necessary surgery To further define card risk, we recommend ECG and echo Once leg inflammation has subsided, we recommend noninvasive arterial circulation louise Estrada spoke with his and daughter and discussed our recommendations Clinical Quality Measures DVT/VTE Risk/Contraindication: Risk Factor Score Per Nursin RFS Level Per Nursing on Admit: 4+=Very High Contraindications-Mechi: Other *list below* Other: cellulitis of the lower leg PAULO HIGGINS MD FACP FAC CCDS Mar 13, 2017 13:10
[2017-03-13] MEDS: oxyCODONE ER 40 MG (oxyCONTIN CR) TAB PO SCH (13:54)
[2017-03-13] MEDS ORDERED: LIDOCAINE (LIDODERM) 5% PATCH TOP PRN (14:00)
[2017-03-13 14:27] LABS: BASOPHILS % (AUTO) 0 % (0-10); EOSINOPHILS % (AUTO) 0 % (0-10); LYMPHOCYTES # (AUTO) 0.8 X 10^3 (1.0-4.0); LYMPHOCYTES % (AUTO) 5 % (12-44); MEAN CORPUSCULAR HEMOGLOBIN 32 PG (25-34); MEAN CORPUSCULAR HGB CONC 34 G/DL (32-36); MEAN CORPUSCULAR VOLUME 95 FL (80-99); MEAN PLATELET VOLUME 9.3 FL (7.4-10.4); MONOCYTES # (AUTO) 0.7 X 10^3 (0.0-1.0); MONOCYTES % (AUTO) 4 % (0-12); NEUTROPHILS # (AUTO) 14.8 X 10^3 (1.8-7.8); NEUTROPHILS % (AUTO) 91 % (42-75); PLATELET COUNT 220 10^3/uL (130-400); RED BLOOD COUNT 3.98 10^6/uL (4.35-5.85); RED CELL DISTRIBUTION WIDTH 12.8 % (10.0-14.5); WHITE BLOOD COUNT 16.3 10^3/uL (4.3-11.0)
[2017-03-13 14:48] LABS: BAND NEUTROPHILS 6 %; BASOPHILS % (MANUAL) 0 %; EOSINOPHILS % (MANUAL) 0 %; LYMPHOCYTES % (MANUAL) 2 %; NEUTROPHILS % (MANUAL) 91 %
[2017-03-13 14:49] LABS: BILIRUBIN,TOTAL 0.4 MG/DL (0.1-1.0); CALCIUM 9.1 MG/DL (8.5-10.1); CREATININE SERUM 1.29 MG/DL (0.60-1.30); POTASSIUM 3.8 MMOL/L (3.6-5.0); TOTAL PROTEIN 7.3 GM/DL (6.4-8.2)
--- NOTE | 2017-03-13 15:18 | Consultation ---
History of Present Illness History of Present Illness Patient Consulted On(mariela/time) 03/13/17 15:13 Time Seen by Provider: 14:42 History of Present Illness Surgery asked to consult regarding Left lower extremity cellulitis. HPI: Pt is a 61-year-old white male patient of Dr. Bergman in [place] that was transferred from [facility] so that Dr. Muniz could assess his left knee because of prior septic arthritis and multiple surgeries to manage that. 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 He had received 1 g of vancomycin and 1 g of Rocephin prior to transfer and the left leg that was severely red and swollen has had great improvement since the antibiotics were infused. Bilateral lower extremity ultrasound was completed revealing no evidence of DVT. He does take large doses of chronic narcotics for chronic pain in addition to gabapentin 300 mg 3 times a day along with Flexeril 10 mg 3 times a day and that regimen has caused altered mental status with the fever and infection. When seen now pt is sleeping, but easily arousable. states that he was out mowing the grass 2 days ago and may have got "whacked" a couple of times. He also has really bad reactions to insect bites; but doesn't remember getting bit this time. states that today the redness and warmth is much better than yesterday. He was confused past few days, but is better now, per . Allergies and Home Medications Allergies Coded Allergies: Penicillins (Unverified Allergy, Unknown, 04/11/14) Home Medications Atorvastatin 20 Mg Tablet, 20 MG PO 1630, (Reported) Celecoxib 200 Mg Capsule, 200 MG PO 429,163, (Reported) Cyanocobalamin (Vitamin B-12) 2,500 Mcg Tab.subl, 2,500 MCG SL 1130,1630, ( Reported) Cyclobenzaprine Hcl 10 Mg Tablet, 10 MG PO 0,0430, (Reported) Escitalopram Oxalate 20 Mg Tablet, 20 MG PO 043,1630, (Reported) Esomeprazole Mag Trihydrate 40 Mg Capsule.dr, 40 MG PO 0430, (Reported) Ezetimibe 10 Mg Tablet, 10 MG PO 1630, (Reported) Furosemide 40 Mg Tablet, 40 MG PO 1630, (Reported) Gabapentin 300 Mg Capsule, 600 MG PO 1130,1630, (Reported) TAKES 2 (300MG) CAPSULES Gabapentin 300 Mg Capsule, 1,200 MG PO 2230, (Reported) TAKES 4 (300MG) CAPSULES Iron Polysaccharide Complex 150 Mg Capsule, 150 MG PO 0430,1630, (Reported) Levomefolate/B6/B12/Algal Oil 1 Each Capsule, 1 CAP PO 1630, (Reported) Lidocaine 1 Ea Patch, 1 PATCH TOP DAILY PRN for BACK PAIN, (Reported) Lisinopril 10 Mg Tablet, 10 MG PO 223, (Reported) Oxycodone HCl/Acetaminophen 1 Each Tablet, 2 TAB PO 113,223, (Reported) Oxycodone Hcl 80 Mg Tab.sr.12h, 80 MG PO 429,1630, (Reported) Potassium Chloride 10 Meq Tablet.er, 10 MEQ PO 1129,2229, (Reported) Past Plmatqn-Enpnzz-Wccvms Hx Patient Social History Alcohol Use: Denies Use Recreational Drug Use: No Smoking Status: Former Smoker (quit 3 yrs ago) Type Used: Cigarettes Recent Foreign Travel: No Contact w/Someone Who Travel: No Recent Infectious Disease Expo: No Physical Abuse Screen: No Sexual Abuse: No Immunizations Up To Date Tetanus Booster (TDap): Less than 5yrs Surgeries HX Surgeries: Yes (BILATERAL KNEE REPLACEMENT, NECK AND BACK SURGERY, ) Surgeries: Orthopedic Respiratory Hx Respiratory Disorders: Yes (HX BRONCHITIS) Cardiovascular Hx Cardiac Disorders: No Neurological Hx Neurological Disorders: Yes Neurological Disorders: Neuropathy Reproductive System Hx Reproductive Disorders: No Genitourinary Hx Genitourinary Disorders: Yes Genitourinary Disorders: Renal Failure Gastrointestinal Hx Gastrointestinal Disorders: No Musculoskeletal Hx Musculoskeletal Disorders: Yes (DJD, INFECTED KNEE JOINTS) Musculoskeletal Disorders: Chronic Back Pain Endocrine Hx Endocrine Disorders: No HEENT HX ENT Disorders: No Cancer Hx Cancer: No Psychosocial Hx Psychiatric Problems: No Integumentary HX Skin/Integumentary Disorder: No Blood Transfusions Hx Blood Disorders: No Adverse Reaction to a Blood Tr: No Family Medical History Significant Family History: Heart Disease (father), Diabetes (denies), Hypertension (brother), Lung Disease (father) Family Medial History: Cardiovascular disease 19 FATHER Hypertension G8 BROTHER Respiratory disorder 19 FATHER Review of Systems-General Constitutional: chills, diaphoresis, dizziness, fever, malaise, weakness EENTM: hearing loss, blurred vision, No mouth swelling, No epistaxis, No throat swelling Respiratory: No cough, No dyspnea on exertion, No hemoptysis Cardiovascular: No chest pain, No edema, No palpitations Gastrointestinal: No abdominal pain, No diarrhea, No dysphagia Musculoskeletal: joint pain, joint swelling, muscle pain, muscle stiffness Skin: see HPI, No pruritus Psychiatric/Neurological: Denies Anxiety, Denies Depressed, Headache, Denies Seizure Physical Exam-General Problems Physical Exam Vital Signs Vital Sign - Last 12Hours 03/13/17 03/13/17 10:20 12:00 Temp 100.8 Pulse 90 Resp 20 B/P (MAP) 129/66 Pulse Ox 97 O2 Delivery Nasal Cannula O2 Flow Rate 3.00 Capillary Refill : General Appearance: WD/WN, mild distress Eyes: Bilateral Eye PERRL, Bilateral Eye EOMI HEENT: pharynx normal, No scleral icterus (R), No scleral icterus (L), No pale conjunctivae (R), No pale conjunctivae (L) Neck: full range of motion, supple, normal inspection Respiratory: lungs clear, normal breath sounds, no respiratory distress, no accessory muscle use Cardiovascular: regular rate, rhythm, no edema, no murmur Gastrointestinal: non tender, soft, no organomegaly, no pulsatile mass Extremities: no calf tenderness, normal capillary refill, other (left leg erythema, minimally warm, no fluctuance or other signs of abscess. Some venous stasis changes. 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, normal mood/affect Lymphatic: no adenopathy (neck, axilla or groin) Data Review Labs Laboratory Tests 03/13/17 14:18: White Blood Count 16.3H, Red Blood Count 3.98L, Hemoglobin 12.7L, Hematocrit 38L , Mean Corpuscular Volume 95, Mean Corpuscular Hemoglobin 32, Mean Corpuscular Hemoglobin Concent 34, Red Cell Distribution Width 12.8, Platelet Count 220, Mean Platelet Volume 9.3, Neutrophils (%) (Auto) 91H, Lymphocytes (%) (Auto) 5L , Monocytes (%) (Auto) 4, Eosinophils (%) (Auto) 0, Basophils (%) (Auto) 0, Neutrophils # (Auto) 14.8H, Lymphocytes # (Auto) 0.8L, Monocytes # (Auto) 0.7, Eosinophils # (Auto) 0.0, Basophils # (Auto) 0.0, Neutrophils % (Manual) 91, Lymphocytes % (Manual) 2, Monocytes % (Manual) 1, Eosinophils % (Manual) 0, Basophils % (Manual) 0, Band Neutrophils 6, Blood Morphology Comment NORMAL, Sodium Level 134L, Potassium Level 3.8, Chloride Level 102, Carbon Dioxide Level 24, Anion Gap 8, Blood Urea Nitrogen 17, Creatinine 1.29, Estimat Glomerular Filtration Rate 56, BUN/Creatinine Ratio 13, Glucose Level 121H, Calcium Level 9.1, Total Bilirubin 0.4, Aspartate Amino Transf (AST/SGOT) 22, Alanine Aminotransferase (ALT/SGPT) 20, Alkaline Phosphatase 76, Total Protein 7.3, Albumin 4.0 Assessment/Plan Assessment/Plan Assessment/Plan Left lower extremity Cellulitis - seems to be improving will monitor, continue ABX and elevation. No need for I&D at this time. Thank you for this consult. Chronic joint pain - continue pain control Clinical Quality Measures DVT/VTE Risk/Contraindication: Risk Factor Score Per Nursin RFS Level Per Nursing on Admit: 4+=Very High Contraindications-Mechi: Other *list below* Other: cellulitis of the lower leg LISETH ANGUIANO DO Mar 13, 2017 15:18
[2017-03-13 15:37] VITALS: BP 127/67
[2017-03-13] MEDS: IRON POLYSAC 150 MG CAP (NIFEREX) PO SCH (16:41)
[2017-03-13] MEDS: CELECOXIB 100 MG (CeleBREX) CAP PO SCH (16:41)
[2017-03-13] MEDS: FUROSEMIDE 40 MG (LASIX) TAB PO SCH (16:42)
[2017-03-13] MEDS: ATORVASTATIN 20 MG (LIPITOR) TABLET PO SCH (16:42)
[2017-03-13] MEDS: eZETimibe 10 MG (ZETIA) TABLET PO SCH (16:42)
--- NOTE | 2017-03-13 17:57 | Diagnostic Imaging Report ---
INDICATION: Fever. EXAMINATION: PA and lateral chest at 12:45 p.m. FINDINGS: The heart size is within normal limits and stable when compared to 04/16/14. As on the prior exam, there is elevation and eventration of the right hemidiaphragm. This finding is no different than on the previous study. The lungs remain generally clear. There is no sign of failure, pneumonia or a pleural effusion to suggest an acute abnormality. The mediastinum is not widened. The osseous structures are intact. The orthopedic hardware overlying the lower cervical spine, seen previously, is again evident and no different. IMPRESSION: There is no evidence for active disease. When compare with the prior study, there has been no adverse change. Dictated by: Dictated on workstation # [id number]
[2017-03-13 20:00] VITALS: BP 132/72
[2017-03-13] MEDS: GABAPENTIN 600 MG (NEURONTIN) TAB PO SCH (21:39)
[2017-03-13] MEDS: oxyCODONE/APAP 10/325MG (PERCOCET 10) TABLET PO SCH (21:39)
[2017-03-13] MEDS: lisINopril 10 MG (PRINIVIL) TAB PO SCH (21:39)
[2017-03-13] MEDS: CYCLOBENZAPRINE 10 MG (FLEXERIL) TAB PO SCH (21:40)
[2017-03-13] MEDS: KCL 10 MEQ TAB (MICRO K) PO SCH (21:40)
[2017-03-14] VITALS: BP 132/72
[2017-03-14] MEDS: NS IV 1000 ML 1,000 ML IV SCH (01:30)
[2017-03-14 04:00] VITALS: BP 151/77
[2017-03-14] MEDS ORDERED: GABAPENTIN 600 MG (NEURONTIN) TAB PO ONE ×2 (04:30→11:30)
[2017-03-14] MEDS: CYCLOBENZAPRINE 10 MG (FLEXERIL) TAB PO SCH ×2 (04:53→22:14)
[2017-03-14] MEDS: CELECOXIB 100 MG (CeleBREX) CAP PO SCH ×2 (04:53→17:33)
[2017-03-14] MEDS: IRON POLYSAC 150 MG CAP (NIFEREX) PO SCH ×2 (04:53→17:33)
[2017-03-14] MEDS: PANTOPRAZOLE 40 MG (PROTONIX) TAB PO SCH (04:53)
[2017-03-14] MEDS: oxyCODONE ER 40 MG (oxyCONTIN CR) TAB PO SCH ×2 (04:54→17:33)
[2017-03-14 04:58] LABS: BASOPHILS % (AUTO) 0 % (0-10); EOSINOPHILS % (AUTO) 0 % (0-10); LYMPHOCYTES # (AUTO) 1.2 X 10^3 (1.0-4.0); LYMPHOCYTES % (AUTO) 10 % (12-44); MEAN CORPUSCULAR HEMOGLOBIN 32 PG (25-34); MEAN CORPUSCULAR HGB CONC 33 G/DL (32-36); MEAN CORPUSCULAR VOLUME 96 FL (80-99); MEAN PLATELET VOLUME 9.7 FL (7.4-10.4); MONOCYTES # (AUTO) 0.6 X 10^3 (0.0-1.0); MONOCYTES % (AUTO) 5 % (0-12); NEUTROPHILS # (AUTO) 10.5 X 10^3 (1.8-7.8); NEUTROPHILS % (AUTO) 85 % (42-75); PLATELET COUNT 216 10^3/uL (130-400); RED CELL DISTRIBUTION WIDTH 12.9 % (10.0-14.5); WHITE BLOOD COUNT 12.4 10^3/uL (4.3-11.0)
[2017-03-14 05:51] LABS: ALBUMIN 3.9 GM/DL (3.2-4.5); BILIRUBIN,TOTAL 0.3 MG/DL (0.1-1.0); CALCIUM 9.3 MG/DL (8.5-10.1); CREATININE SERUM 1.24 MG/DL (0.60-1.30); POTASSIUM 3.5 MMOL/L (3.6-5.0); TOTAL PROTEIN 7.4 GM/DL (6.4-8.2)
[2017-03-14] MEDS: RT-ALBUTEROL/IPRATROPIUM 3 ML (DUONEB) VIAL INH SCH ×3 (07:30→20:25)
[2017-03-14] MEDS ORDERED: ESCITALOPRAM 20 MG (LEXAPRO) TABLET PO SCH (08:00)
[2017-03-14 08:05] VITALS: BP 130/65
--- NOTE | 2017-03-14 08:39 | Progress Note-Hospitalist ---
Progress Note HPI/CC on Admission CC: Left leg cellulitis with fever of 102 with confusion HPI: This is a 61-year-old white male patient of Dr. Bergman in [place] that was transferred from [facility] so that Dr. Muniz could assess his left knee because of prior septic arthritis and multiple surgeries to manage that. 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 He had received 1 g of vancomycin and 1 g of Rocephin prior to transfer and the left leg that was severely red and swollen has had great improvement since the antibiotics were infused. Bilateral lower extremity ultrasound was completed revealing no evidence of DVT. He does take large doses of chronic narcotics for chronic pain in addition to gabapentin 300 mg 3 times a day along with Flexeril 10 mg 3 times a day and that regimen has caused altered mental status with the fever and infection. I have asked Dr Enrique to evaluate the soft tissue infection and will have Dr Silva evaluate my suspicion for CAD and PVD. Progress Notes/Assess & Plan Date Seen 03/14/17 Time Seen by Provider: 09:00 Admission Dx/Process Assessment: Left lower leg cellulitis with fever of 104 w/confusion from SIRS and pain meds/ muscle relaxants/gabapentin h/o left knee septic joint managed by Dr Muniz w/current cellulitis approaching joint so consulting Dr Muniz Chronic back pain narcotic dependent Suspicious for LORI and CAD no w/u in past consulting Dr Silva Leukocytosis Crackles on lung exam LLL ordering CXR and Nebs HTN HLP CRI creat 1.7 today Diagonsis/Assessment & Plan Patient doing much better and less lethargy even though insisted on giving him his home dose of gabapentin and Flexeril that caused oversedation yesterday but patient is doing well and eating a box of daylight doughnuts Labs much improved Vancomycin and Rocephin maintained Physical therapy assessed the patient to have no needs and no difficulty ambulating Line of demarcation has progressed of erythema Checked meds and labs No fever, vital signs stable, pleasant, improved Regular rate and rhythm, clear to auscultation bilaterally no crackles today Less edema and erythema of the left lower leg much improved Laboratory Tests 03/13/17 14:18 03/14/17 04:09 Assessment: Left lower leg cellulitis with fever of 104 w/confusion from SIRS and pain meds/ muscle relaxants/gabapentin now much improved and less erythema h/o left knee septic joint managed by Dr Muniz w/current cellulitis approaching joint so consulting Dr Muniz Chronic back pain narcotic dependent Suspicious for LORI and CAD no w/u in past consulting Dr Silva Leukocytosis Crackles on lung exam LLL s/p CXR and Nebs now resolved and CXR normal HTN HLP CRI creat 1.7 yesterday now 1.24 Plan: HLIVF Limit pain meds if possible Monitor creatinine Vanc and Rocephin empirically but may be able to DC Friday on PO abx Consult Iva Erazo and Cristy are appreciated NINFA MARTIN DO Mar 14, 2017 08:39
[2017-03-14] MEDS ORDERED: KCL 20 MEQ TAB (K-DUR) PO NR (09:07)
--- NOTE | 2017-03-14 09:27 | Physical Therapy Evaluation ---
PT Evaluation-General Medical Diagnosis Admission Date Mar 13, 2017 at 10:20 Medical Diagnosis: cellulitis left LE Onset Date: Mar 11, 2017 Therapy Diagnosis Therapy Diagnosis: debility Height/Weight Height (Feet): 5 Height (Inches): 9.00 Weight (Pounds): 254 Weight (Ounces): 6.0 Precautions Precautions/Isolations: Standard Precautions Weight Bear Status Weight Bearing Restriction: Weight Bearing/Tolerated Location Restriction: LE Bilateral Referral Physician: Nichol Reason for Referral: Evaluation/Treatment Medical History Pertinent Medical History: Neuropathy, Renal Insufficiency Additional Medical History bilateral TKR; septic arthritis with multiple surgeries to manage Current History increase in confusion, fever and redness left LE with edema due to cellulitis Reviewed History: Yes Social History Home: Single Level Current Living Status: Spouse Prior/Core FIM Prior Level of Function Functional [place] Measure 0=Not Assessed/NA 4=Minimal Assistance 1=Total Assistance 5=Supervision or Setup 2=Maximal Assistance 6=Modified [place] 3=Moderate Assistance 7=Complete [place] Bed Mobility: 7 Transfers (B,C,W/C) (FIM): 7 Gait: 7 Locomotion: 7 PT Evaluation-Current Subjective Patient agrees to PT. Pain Numeric Pain Scale: 0-No Pain Location: No Pain Reported Objective Patient Orientation: Normal For Age Problem Solving: Good Attachments: IV ROM/Strength ROM Lower Extremities bilateral LE WNL Strenght Lower Extremities bilateral LE WNL Integumentary/Posture Integumentary refer to nursing notes Bowel Incontinence: No Bladder Incontinence: No Posture WNL Neuromuscular (Tone, Coordination, Reflexes) grossly intact Sensory Vision: Wears Glasses Hearing: Functional Sensation Right Lower Extremit: Impaired Sensation Left Lower Extremity: Impaired Transfers Functional [place] Measure 0=Not Assessed/NA 4=Minimal Assistance 1=Total Assistance 5=Supervision or Setup 2=Maximal Assistance 6=Modified [place] 3=Moderate Assistance 7=Complete [place] Transfers (B, C, W/C) (FIM): 7 Scootin Rollin Supine to/from Sit: 7 Sit to/from Stand: 7 Gait Mode of Locomotion: Walk Anticipated Mode of Locomotion: Walk Gait (FIM): 7 Distance (FIM): 3=150 ft Distance: 800' Gait Level of Assist: 7 Gait Assistive Device: None Comments/Gait Description safe and functional Balance Sitting Static: Normal Sitting Dynamic: Normal Standing Static: Normal Standing Dynamic: Normal Assessment/Needs 61 y.o. male, is currently at [facility] with all gross motor skills and does not require skilled PT services at this time. Dr. Gandara notified. Rehab Potential: Good PT Plan Treatment/Plan Treatment Plan: Discontinue PT, goals met Treatment Plan: Other Treatment Duration: Mar 14, 2017 Frequency: eval only Estimated Hrs Per Day: .5 hour per day Patient and/or Family Agrees t: Yes Safety Risks/Education Patient Education: Gait Training Discharge Recommendations Therapy D/C Recommendations: Home w/ Family Support Time/GCodes Time In: 815 Time Out: 838 Total Billed Treatment Time: 23 Total Billed Treatment 1 visit EVLowC 23 min G Codes Necessary: DAMION Carrillo PT Mar 14, 2017 09:27
[2017-03-14] MEDS: cefTRIAXone INJECTION 1,000 MG in NS (IVPB) 50 ML IV SCH (09:47)
[2017-03-14] MEDS: VANCOMYCIN 1,750 MG/NS 500 ML IVPB IV SCH ×4 (10:42→22:14)
--- NOTE | 2017-03-14 10:50 | Progress Note ---
Subjective Time Seen by Provider: 10:04 Subjective/Events-last exam Pt seen and examined, he is alert today and answering questions appropriately. He states pain is much better, and thinks area looks better. Denies N/V or chills. Review of Systems General: No Chills, No Night Sweats HEENT: No Head Aches Pulmonary: No Cough Cardiovascular: No: Chest Pain, Palpitations Gastrointestinal: No: Nausea, Vomiting, Abdominal Pain Objective Exam Vital Signs Date Time Temp Pulse Resp B/P (MAP) Pulse Ox O2 Delivery O2 Flow Rate FiO2 03/14/17 08:05 98.1 74 20 130/65 92 Room Air 03/14/17 07:30 91 Room Air 03/14/17 04:00 98.2 76 20 151/77 93 Room Air 03/14/17 00:00 98.1 62 20 132/72 92 Room Air 03/13/17 20:01 95 Room Air 03/13/17 20:00 97.7 68 21 132/72 94 03/13/17 15:37 98.4 73 20 127/67 93 03/13/17 14:34 92 03/13/17 12:00 100.8 90 20 129/66 94 Capillary Refill : General Appearance: No Apparent Distress, WD/WN, Chronically ill, Obese HEENT: PERRL/EOMI, Pharynx Normal Neck: Full Range of Motion, Normal Inspection, Non Tender, Supple, Carotid Bruit Respiratory: Chest Non Tender, Lungs Clear, Normal Breath Sounds, No Accessory Muscle Use, No Respiratory Distress Cardiovascular: Regular Rate, Rhythm, No Edema, No Gallop, No JVD, No Murmur, Normal Peripheral Pulses Gastrointestinal: non tender, soft, no organomegaly, no pulsatile mass Extremity: No Calf Tenderness, Pedal Edema (+1 Edema, non-pitting at this time) , Other (left leg erythema inside line drawn yesterday with chronic stasis changes. However, does look more red today on medial aspect, no fluctuance) Neurologic/Psychiatric: Alert, No Motor/Sensory Deficits, Normal Mood/Affect, Other (lethargic but becomes alert easily) Skin: Normal Color, Warm/Dry Results Lab Laboratory Tests 03/13/17 14:18: White Blood Count 16.3H, Red Blood Count 3.98L, Hemoglobin 12.7L, Hematocrit 38L , Mean Corpuscular Volume 95, Mean Corpuscular Hemoglobin 32, Mean Corpuscular Hemoglobin Concent 34, Red Cell Distribution Width 12.8, Platelet Count 220, Mean Platelet Volume 9.3, Neutrophils (%) (Auto) 91H, Lymphocytes (%) (Auto) 5L , Monocytes (%) (Auto) 4, Eosinophils (%) (Auto) 0, Basophils (%) (Auto) 0, Neutrophils # (Auto) 14.8H, Lymphocytes # (Auto) 0.8L, Monocytes # (Auto) 0.7, Eosinophils # (Auto) 0.0, Basophils # (Auto) 0.0, Neutrophils % (Manual) 91, Lymphocytes % (Manual) 2, Monocytes % (Manual) 1, Eosinophils % (Manual) 0, Basophils % (Manual) 0, Band Neutrophils 6, Blood Morphology Comment NORMAL, Sodium Level 134L, Potassium Level 3.8, Chloride Level 102, Carbon Dioxide Level 24, Anion Gap 8, Blood Urea Nitrogen 17, Creatinine 1.29, Estimat Glomerular Filtration Rate 56, BUN/Creatinine Ratio 13, Glucose Level 121H, Calcium Level 9.1, Total Bilirubin 0.4, Aspartate Amino Transf (AST/SGOT) 22, Alanine Aminotransferase (ALT/SGPT) 20, Alkaline Phosphatase 76, Total Protein 7.3, Albumin 4.0 03/14/17 04:09: White Blood Count 12.4H, Red Blood Count 3.90L, Hemoglobin 12.5L, Hematocrit 38L , Mean Corpuscular Volume 96, Mean Corpuscular Hemoglobin 32, Mean Corpuscular Hemoglobin Concent 33, Red Cell Distribution Width 12.9, Platelet Count 216, Mean Platelet Volume 9.7, Neutrophils (%) (Auto) 85H, Lymphocytes (%) (Auto) 10L , Monocytes (%) (Auto) 5, Eosinophils (%) (Auto) 0, Basophils (%) (Auto) 0, Neutrophils # (Auto) 10.5H, Lymphocytes # (Auto) 1.2, Monocytes # (Auto) 0.6, Eosinophils # (Auto) 0.0, Basophils # (Auto) 0.0, Sodium Level 138, Potassium Level 3.5L, Chloride Level 103, Carbon Dioxide Level 23, Anion Gap 12, Blood Urea Nitrogen 14, Creatinine 1.24, Estimat Glomerular Filtration Rate 59, BUN/ Creatinine Ratio 11, Glucose Level 115H, Calcium Level 9.3, Total Bilirubin 0.3 , Aspartate Amino Transf (AST/SGOT) 21, Alanine Aminotransferase (ALT/SGPT) 22, Alkaline Phosphatase 75, Total Protein 7.4, Albumin 3.9, Vancomycin Level Trough 8.3L Assessment/Plan Assessment/Plan Assessment/Plan Left lower extremity Cellulitis - seems to be improving will monitor, continue ABX and elevation. No need for I&D at this time. Increase ambulation and elevation when not walking. Once the erythema goes away pt would benefit from Compression Stockings, I believe part of his problem is venous congestion, probably Greater saphenous vein with reflux and therefore venous pooling of blood. Chronic joint pain - continue pain control Clinical Quality Measures DVT/VTE Risk/Contraindication: Risk Factor Score Per Nursin RFS Level Per Nursing on Admit: 4+=Very High Contraindications-Mechi: Other *list below* Other: cellulitis of the lower leg LISETH ANGUIANO DO Mar 14, 2017 10:50
[2017-03-14] MEDS: KCL 10 MEQ TAB (MICRO K) PO SCH ×2 (10:52→22:14)
[2017-03-14] MEDS: oxyCODONE/APAP 10/325MG (PERCOCET 10) TABLET PO SCH ×2 (10:52→22:15)
[2017-03-14] MEDS: ENOXAPARIN 40 MG/0.4 ML (LOVENOX) SYR SC SCH (10:52)
[2017-03-14] MEDS: GABAPENTIN 600 MG (NEURONTIN) TAB PO SCH ×3 (10:52→22:15)
[2017-03-14] MEDS ORDERED: GABAPENTIN 600 MG (NEURONTIN) TAB PO SCH (11:30)
[2017-03-14 12:00] VITALS: BP 134/67
[2017-03-14] MEDS ORDERED: VANCOMYCIN 1,750 MG/NS 500 ML IVPB IV SCH ×2 (12:00)
--- NOTE | 2017-03-14 14:55 | Progress Note-Cardiology ---
Cardiology SOAP Progress Note Subjective: Sitting up in a chair at the bedside. Daughter is at the bedside. He states he feels much better today. He has been up ambulating in the halls. No c/o CP , palpitations, syncope or near syncope. Objective: I&O/Vital Signs Vital Sign - Last 12Hours 03/14/17 03/14/17 03/14/17 03/14/17 07:30 08:05 12:00 15:17 Temp 98.1 97.4 Pulse 74 75 Resp 20 18 B/P (MAP) 130/65 134/67 Pulse Ox 91 92 99 94 O2 Delivery Room Air Room Air Room Air Room Air 03/14/17 16:00 Temp 98.0 Pulse 70 Resp 21 B/P (MAP) 136/70 Pulse Ox 96 O2 Delivery Room Air Intake and Output 03/15/17 00:00 Intake Total 1160 ml Balance 1160 ml Weight (Pounds): 254 Weight (Ounces): 6.0 Weight (Calculated Kilograms): 115.142496 Constitutional: other (mentally obtunded) Respiratory: chest expansion is symmetric, chest is bilaterally symmetric, other (diminished bases bilat) Cardiovascular: regular rate-rhythm, No JVD, S1 and S2 Gastrointestional: soft, round, audible bowel sounds Extremities: other (Left lower extremity from the knee to foot with 2-3(+) edema, redness and warmth ( which has improved); mod RLE edema) Neurologic/Psychiatric: other (moves extermities) Skin: other (as above) Results/Procedures: Labs Laboratory Tests 03/14/17 04:09: White Blood Count 12.4H, Red Blood Count 3.90L, Hemoglobin 12.5L, Hematocrit 38L , Mean Corpuscular Volume 96, Mean Corpuscular Hemoglobin 32, Mean Corpuscular Hemoglobin Concent 33, Red Cell Distribution Width 12.9, Platelet Count 216, Mean Platelet Volume 9.7, Neutrophils (%) (Auto) 85H, Lymphocytes (%) (Auto) 10L , Monocytes (%) (Auto) 5, Eosinophils (%) (Auto) 0, Basophils (%) (Auto) 0, Neutrophils # (Auto) 10.5H, Lymphocytes # (Auto) 1.2, Monocytes # (Auto) 0.6, Eosinophils # (Auto) 0.0, Basophils # (Auto) 0.0, Sodium Level 138, Potassium Level 3.5L, Chloride Level 103, Carbon Dioxide Level 23, Anion Gap 12, Blood Urea Nitrogen 14, Creatinine 1.24, Estimat Glomerular Filtration Rate 59, BUN/ Creatinine Ratio 11, Glucose Level 115H, Calcium Level 9.3, Total Bilirubin 0.3 , Aspartate Amino Transf (AST/SGOT) 21, Alanine Aminotransferase (ALT/SGPT) 22, Alkaline Phosphatase 75, Total Protein 7.4, Albumin 3.9, Vancomycin Level Trough 8.3L A/P: Assessment: Card status clinically stable. Echo of 03/14/17 showed LVEF 60-65%, no significant valvular heart disease LLE cellulitis with suspected sepsis - management per medical/surgical services Acute mental status changes likely due to septicemia - improving H/o card cath in or around 1999 after which he was told he did not have any significant CAD ([facility], [place], [place]) HLP - statin tx - followed by PCP Suspected sleep apnea H/O left knee TKR with revisions - most recent revision [place] [address] Muniz (h/o infected joint in the past) Acute on chronic renal insufficiency Chronic narcotic analgesic use Plan: Based on history (no angina, no CHF) the risk of noncardiac surgery is estimated to be low to intermediate. It would be reasonable to proceed with necessary surgery per Dr. Silva Echocardiogram is pending Once leg inflammation has subsided, we recommend noninvasive arterial circulation eval Dr. Silva spoke with his and daughter and discussed our recommendations Replace potassium Physician Assessment Physician Assessment No cp or palp or syncope or shortness of breath Cor: reg Lungs: clear Ext: bilat leg swelling, more on the L (along with redness and raised temp over the L leg) A&R * As documented in our note above that I updated (italics) and as noted below * I discussed with him and his fam his card w/u and answered questions NORMA ORDONEZ [employer]PLING [employer]ER Mar 14, 2017 14:55 PAULO SILVA MD FACP [facility] Mar 14, 2017 17:00
[2017-03-14 16:00] VITALS: BP 136/70
[2017-03-14] MEDS: eZETimibe 10 MG (ZETIA) TABLET PO SCH (17:33)
[2017-03-14] MEDS: FUROSEMIDE 40 MG (LASIX) TAB PO SCH (17:33)
[2017-03-14] MEDS: ATORVASTATIN 20 MG (LIPITOR) TABLET PO SCH (17:34)
[2017-03-14] MEDS: ESCITALOPRAM 20 MG (LEXAPRO) TABLET PO SCH (17:34)
[2017-03-14 19:46] VITALS: BP 141/79
[2017-03-14] MEDS: lisINopril 10 MG (PRINIVIL) TAB PO SCH (22:14)
[2017-03-15] VITALS (8 sets, daily range): BP systolic 107–159; BP diastolic 67–81
[2017-03-15] MEDS: CYCLOBENZAPRINE 10 MG (FLEXERIL) TAB PO SCH ×2 (04:20→21:57)
[2017-03-15] MEDS: oxyCODONE ER 40 MG (oxyCONTIN CR) TAB PO SCH ×2 (04:20→16:18)
[2017-03-15] MEDS: PANTOPRAZOLE 40 MG (PROTONIX) TAB PO SCH (04:20)
[2017-03-15] MEDS: CELECOXIB 100 MG (CeleBREX) CAP PO SCH ×2 (04:20→16:18)
[2017-03-15] MEDS: IRON POLYSAC 150 MG CAP (NIFEREX) PO SCH ×2 (04:20→16:19)
[2017-03-15] MEDS: ESCITALOPRAM 20 MG (LEXAPRO) TABLET PO SCH ×2 (04:21→16:18)
[2017-03-15] MEDS ORDERED: GABAPENTIN 600 MG (NEURONTIN) TAB PO SCH (04:30)
[2017-03-15] MEDS: RT-ALBUTEROL/IPRATROPIUM 3 ML (DUONEB) VIAL INH SCH ×3 (07:16→20:01)
[2017-03-15 07:55] LABS: BASOPHILS % (AUTO) 0 % (0-10); EOSINOPHILS # (AUTO) 0.3 10^3/uL (0.0-0.3); EOSINOPHILS % (AUTO) 3 % (0-10); LYMPHOCYTES % (AUTO) 22 % (12-44); MEAN CORPUSCULAR HEMOGLOBIN 32 PG (25-34); MEAN CORPUSCULAR HGB CONC 33 G/DL (32-36); MEAN CORPUSCULAR VOLUME 97 FL (80-99); MEAN PLATELET VOLUME 9.1 FL (7.4-10.4); MONOCYTES # (AUTO) 0.8 X 10^3 (0.0-1.0); MONOCYTES % (AUTO) 9 % (0-12); NEUTROPHILS % (AUTO) 65 % (42-75); PLATELET COUNT 215 10^3/uL (130-400); RED BLOOD COUNT 3.88 10^6/uL (4.35-5.85); RED CELL DISTRIBUTION WIDTH 13.2 % (10.0-14.5); WHITE BLOOD COUNT 9.2 10^3/uL (4.3-11.0)
[2017-03-15] MEDS ORDERED: TROUGH ORDER-PHARMACY XX ONE (08:00)
[2017-03-15] MEDS: cefTRIAXone INJECTION 1,000 MG in NS (IVPB) 50 ML IV SCH (08:10)
[2017-03-15 08:13] LABS: ALBUMIN 3.8 GM/DL (3.2-4.5); BILIRUBIN,TOTAL 0.3 MG/DL (0.1-1.0); CALCIUM 9.1 MG/DL (8.5-10.1); CREATININE SERUM 1.23 MG/DL (0.60-1.30); POTASSIUM 4.1 MMOL/L (3.6-5.0); TOTAL PROTEIN 7.1 GM/DL (6.4-8.2)
[2017-03-15] MEDS: KCL 10 MEQ TAB (MICRO K) PO SCH ×2 (11:31→21:57)
[2017-03-15] MEDS: GABAPENTIN 600 MG (NEURONTIN) TAB PO SCH ×3 (11:31→21:58)
[2017-03-15] MEDS: ENOXAPARIN 40 MG/0.4 ML (LOVENOX) SYR SC SCH (11:32)
[2017-03-15] MEDS: oxyCODONE/APAP 10/325MG (PERCOCET 10) TABLET PO SCH ×2 (11:32→21:57)
--- NOTE | 2017-03-15 12:15 | Progress Note-Hospitalist ---
Subjective HPI/CC On Admission Date Seen by Provider: Mar 15, 2017 Time Seen by Provider: 11:00 CC: Left leg cellulitis with fever of 102 with confusion HPI: This is a 61-year-old white male patient of Dr. Bergman in [place] that was transferred from [facility] so that Dr. Muniz could assess his left knee because of prior septic arthritis and multiple surgeries to manage that. 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 He had received 1 g of vancomycin and 1 g of Rocephin prior to transfer and the left leg that was severely red and swollen has had great improvement since the antibiotics were infused. Bilateral lower extremity ultrasound was completed revealing no evidence of DVT. He does take large doses of chronic narcotics for chronic pain in addition to gabapentin 300 mg 3 times a day along with Flexeril 10 mg 3 times a day and that regimen has caused altered mental status with the fever and infection. I have asked Dr Enrique to evaluate the soft tissue infection and will have Dr Silva evaluate my suspicion for CAD and PVD. Subjective/Events-last exam patient complains of increased edema and beginning weeping of his left lower extremitie. He's been afebrile. Review of Systems Musculoskeletal: leg pain Objective Exam Vital Signs Vital Sign - Last 12Hours 03/13/17 03/13/17 10:20 12:00 Temp 100.8 Pulse 90 Resp 20 B/P (MAP) 129/66 Pulse Ox 97 O2 Delivery Nasal Cannula O2 Flow Rate 3.00 Capillary Refill : General Appearance: No Apparent Distress HEENT: Normal ENT Inspection Respiratory: Lungs Clear, Normal Breath Sounds Cardiovascular: Regular Rate, Rhythm, No Gallop, No Murmur Gastrointestinal: Normal Bowel Sounds, Soft Extremity: Pedal Edema, Swelling, Other (diffuse erythema in the beginning of bullous formation over the cellulitis.) Neurologic/Psychiatric: Alert, Oriented x3, No Motor/Sensory Deficits, Normal Mood/Affect Skin: Erythema, Rash Results/Procedures Lab Laboratory Tests 03/15/17 07:45 Assessment/Plan Assessment and Plan Assess & Plan/Chief Complaint Left lower leg cellulitis with fever of 104 w/confusion from SIRS and pain meds/ muscle relaxants/gabapentin now improving slowly but because patient has had a total knee replacement on the left with previous infection requiring replacement of the knee will complete 5 days of vancomycin. Will also check a sedimentation rate and C-reactive protein for further evaluation h/o left knee septic joint managed by Dr Muniz w/current cellulitis approaching joint so consulting Dr Muniz Chronic back pain narcotic dependent Suspicious for LORI and CAD no w/u in past consulting Dr Silva Leukocytosis Crackles on lung exam LLL s/p CXR and Nebs now resolved and CXR normal HTN HLP CRI creat 1.7 yesterday now 1.24 PADILLA FRANCES MD Mar 15, 2017 12:15
--- NOTE | 2017-03-15 12:34 | Progress Note ---
Subjective Date Seen by Provider: Mar 15, 2017 Time Seen by Provider: 12:31 Subjective/Events-last exam Patient states leg is about the same as yesterday. Has very slight weeping of serous fluid in one area. No pain to the leg. Notes no expansion of erythema. WBC improving. Objective Exam Vital Signs Date Time Temp Pulse Resp B/P (MAP) Pulse Ox O2 Delivery O2 Flow Rate FiO2 03/15/17 09:38 Room Air 03/15/17 08:01 97.9 73 22 107/67 91 Room Air 03/15/17 07:16 92 Room Air 03/15/17 04:17 97.1 62 20 159/80 97 Room Air 03/15/17 00:00 97.1 66 20 134/67 95 Room Air 03/14/17 20:25 94 Room Air 03/14/17 19:46 97.8 74 19 141/79 94 Room Air 03/14/17 16:00 98.0 70 21 136/70 96 Room Air 03/14/17 15:17 94 Room Air I & O 03/16/17 07:00 Intake Total 50 ml Balance 50 ml Capillary Refill : General Appearance: No Apparent Distress HEENT: Normal ENT Inspection Neck: Normal Inspection, Non Tender, Supple Respiratory: Lungs Clear, Normal Breath Sounds Cardiovascular: Regular Rate, Rhythm, No Gallop, No Murmur Gastrointestinal: non tender, soft, no organomegaly, no pulsatile mass Extremity: Pedal Edema, Swelling (left lower extremity with minimal serous weeping), Other (diffuse erythema in the beginning of bullous formation over the cellulitis. no drainable fluid collection) Neurologic/Psychiatric: Alert, Oriented x3, No Motor/Sensory Deficits, Normal Mood/Affect Skin: Erythema, Rash Results Lab Laboratory Tests 03/15/17 07:45: White Blood Count 9.2, Red Blood Count 3.88L, Hemoglobin 12.4L, Hematocrit 38L, Mean Corpuscular Volume 97, Mean Corpuscular Hemoglobin 32, Mean Corpuscular Hemoglobin Concent 33, Red Cell Distribution Width 13.2, Platelet Count 215, Mean Platelet Volume 9.1, Neutrophils (%) (Auto) 65, Lymphocytes (%) (Auto) 22, Monocytes (%) (Auto) 9, Eosinophils (%) (Auto) 3, Basophils (%) (Auto) 0, Neutrophils # (Auto) 6.0, Lymphocytes # (Auto) 2.0, Monocytes # (Auto) 0.8, Eosinophils # (Auto) 0.3, Basophils # (Auto) 0.0, Sodium Level 137, Potassium Level 4.1, Chloride Level 104, Carbon Dioxide Level 26, Anion Gap 7, Blood Urea Nitrogen 13, Creatinine 1.23, Estimat Glomerular Filtration Rate 59, BUN/ Creatinine Ratio 11, Glucose Level 103, Calcium Level 9.1, Total Bilirubin 0.3, Aspartate Amino Transf (AST/SGOT) 19, Alanine Aminotransferase (ALT/SGPT) 23, Alkaline Phosphatase 70, C-Reactive Protein High Sensitivity 14.66H, Total Protein 7.1, Albumin 3.8, Vancomycin Level Trough 27.4#*H Assessment/Plan Assessment/Plan Assessment/Plan Left lower extremity Cellulitis - seems to be improving will monitor, continue ABX and elevation. No I&D at this time. Chronic joint pain - continue pain control Clinical Quality Measures DVT/VTE Risk/Contraindication: Risk Factor Score Per Nursin RFS Level Per Nursing on Admit: 4+=Very High Contraindications-Mechi: Other *list below* Other: cellulitis of the lower leg CONSTANCE HUTCHINSON DO Mar 15, 2017 12:34
[2017-03-15] MEDS: ATORVASTATIN 20 MG (LIPITOR) TABLET PO SCH (16:19)
[2017-03-15] MEDS: eZETimibe 10 MG (ZETIA) TABLET PO SCH (16:19)
[2017-03-15] MEDS: FUROSEMIDE 40 MG (LASIX) TAB PO SCH (16:19)
[2017-03-15] MEDS: lisINopril 10 MG (PRINIVIL) TAB PO SCH (21:58)
[2017-03-16] VITALS (7 sets, daily range): BP systolic 108–154; BP diastolic 68–81
[2017-03-16] MEDS: CELECOXIB 100 MG (CeleBREX) CAP PO SCH ×2 (04:23→16:33)
[2017-03-16] MEDS: oxyCODONE ER 40 MG (oxyCONTIN CR) TAB PO SCH ×2 (04:23→16:33)
[2017-03-16] MEDS: IRON POLYSAC 150 MG CAP (NIFEREX) PO SCH ×2 (04:24→16:33)
[2017-03-16] MEDS: ESCITALOPRAM 20 MG (LEXAPRO) TABLET PO SCH ×2 (04:24→16:34)
[2017-03-16] MEDS: CYCLOBENZAPRINE 10 MG (FLEXERIL) TAB PO SCH ×2 (04:24→22:10)
[2017-03-16] MEDS: PANTOPRAZOLE 40 MG (PROTONIX) TAB PO SCH (04:24)
[2017-03-16] MEDS: RT-ALBUTEROL/IPRATROPIUM 3 ML (DUONEB) VIAL INH SCH ×3 (07:17→20:11)
[2017-03-16] MEDS: cefTRIAXone INJECTION 1,000 MG in NS (IVPB) 50 ML IV SCH (08:00)
[2017-03-16] MEDS ORDERED: TROUGH ORDER-PHARMACY XX NR (08:00)
[2017-03-16] MEDS: VANCOMYCIN 1,750 MG/NS 500 ML IVPB IV SCH ×2 (09:29)
[2017-03-16] MEDS: oxyCODONE/APAP 10/325MG (PERCOCET 10) TABLET PO SCH ×2 (10:40→22:10)
[2017-03-16] MEDS: ENOXAPARIN 40 MG/0.4 ML (LOVENOX) SYR SC SCH (10:40)
[2017-03-16] MEDS: KCL 10 MEQ TAB (MICRO K) PO SCH ×2 (10:41→22:10)
[2017-03-16] MEDS: GABAPENTIN 600 MG (NEURONTIN) TAB PO SCH ×3 (10:41→22:10)
--- NOTE | 2017-03-16 10:41 | Progress Note ---
Subjective Date Seen by Provider: Mar 16, 2017 Time Seen by Provider: 10:38 Subjective/Events-last exam Patient states left leg is slightly weeping a little clear fluid. Overall no change compared to yesterday. No significant pain in the leg. Denies any fever sweats chills shortness of breath or chest pain. Objective Exam Vital Signs Date Time Temp Pulse Resp B/P (MAP) Pulse Ox O2 Delivery O2 Flow Rate FiO2 03/16/17 08:00 96 Room Air 03/16/17 07:52 97.7 73 20 108/68 96 Room Air 03/16/17 07:17 96 Room Air 03/16/17 04:22 97.3 67 18 138/77 96 Room Air 03/16/17 00:00 97.0 70 20 126/75 96 Room Air 03/15/17 21:46 67 133/79 03/15/17 20:08 96.4 84 20 128/80 95 Room Air 03/15/17 20:02 93 Room Air 03/15/17 18:10 98.4 124/73 03/15/17 16:00 97.9 68 21 156/81 97 Room Air 03/15/17 15:02 94 Room Air 03/15/17 12:00 97.8 76 20 122/71 95 Room Air Capillary Refill : General Appearance: No Apparent Distress HEENT: Normal ENT Inspection Neck: Normal Inspection, Non Tender, Supple Respiratory: Lungs Clear, Normal Breath Sounds Cardiovascular: Regular Rate, Rhythm Gastrointestinal: non tender, soft, no organomegaly, no pulsatile mass Extremity: Pedal Edema, Swelling (left lower extremity with minimal serous weeping), Other (diffuse erythema in the beginning of bullous formation over the cellulitis. no drainable fluid collection) Neurologic/Psychiatric: Alert, Oriented x3, No Motor/Sensory Deficits, Normal Mood/Affect Skin: Erythema, Rash Results Lab Laboratory Tests 03/16/17 07:55: Vancomycin Level Trough 10.4 Assessment/Plan Assessment/Plan Assessment/Plan Left lower extremity Cellulitis - about the same as yesterday, continue ABX and elevation. No I&D at this time. Chronic joint pain - continue pain control Cultures from [facility] reported as no growth Continue medical management Clinical Quality Measures DVT/VTE Risk/Contraindication: Risk Factor Score Per Nursin RFS Level Per Nursing on Admit: 4+=Very High Contraindications-Mechi: Other *list below* Other: cellulitis of the lower leg CONSTANCE HUTCHINSON DO Mar 16, 2017 10:41
--- NOTE | 2017-03-16 12:01 | Progress Note-Hospitalist ---
Subjective HPI/CC On Admission Date Seen by Provider: Mar 16, 2017 Time Seen by Provider: 09:30 CC: Left leg cellulitis with fever of 102 with confusion HPI: This is a 61-year-old white male patient of Dr. Bergman in [place] that was transferred from [facility] so that Dr. Muniz could assess his left knee because of prior septic arthritis and multiple surgeries to manage that. 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 He had received 1 g of vancomycin and 1 g of Rocephin prior to transfer and the left leg that was severely red and swollen has had great improvement since the antibiotics were infused. Bilateral lower extremity ultrasound was completed revealing no evidence of DVT. He does take large doses of chronic narcotics for chronic pain in addition to gabapentin 300 mg 3 times a day along with Flexeril 10 mg 3 times a day and that regimen has caused altered mental status with the fever and infection. I have asked Dr Enrique to evaluate the soft tissue infection and will have Dr Silva evaluate my suspicion for CAD and PVD. Subjective/Events-last exam patient is without complaint this morning. Leg looks about the same. Blood cultures from [place] were negative. Review of Systems Musculoskeletal: leg pain Objective Exam Vital Signs Vital Sign - Last 12Hours 03/13/17 03/13/17 10:20 12:00 Temp 100.8 Pulse 90 Resp 20 B/P (MAP) 129/66 Pulse Ox 97 O2 Delivery Nasal Cannula O2 Flow Rate 3.00 Capillary Refill : General Appearance: No Apparent Distress Respiratory: Lungs Clear, Normal Breath Sounds, No Accessory Muscle Use, No Respiratory Distress Cardiovascular: Regular Rate, Rhythm, No Edema, No Gallop, No JVD, No Murmur Gastrointestinal: Soft Rectal: Deferred Extremity: Calf Tenderness, Inflammation, Pedal Edema, Other Assessment/Plan Assessment and Plan Assess & Plan/Chief Complaint Left lower leg cellulitis with fever of 104 w/confusion from SIRS and pain meds/ muscle relaxants/gabapentin now improving slowly but because patient has had a total knee replacement on the left with previous infection requiring replacement of the knee will complete 5 days of vancomycin. Will also check a sedimentation rate and C-reactive which were markedly elevated h/o left knee septic joint managed by Dr Muniz w/current cellulitis approaching joint so consulting Dr Muniz Chronic back pain narcotic dependent Suspicious for LORI and CAD no w/u in past consulting Dr Silva Leukocytosis Crackles on lung exam LLL s/p CXR and Nebs now resolved and CXR normal HTN HLP CRI creat 1.7 yesterday now 1.24 possible discharge in the next day or 2 but will require longer term antibiotics because of the history of the knee replacement on that side and previous joint infection PADILLA FRANCES MD Mar 16, 2017 12:00
[2017-03-16] MEDS: FUROSEMIDE 40 MG (LASIX) TAB PO SCH (16:32)
[2017-03-16] MEDS: ATORVASTATIN 20 MG (LIPITOR) TABLET PO SCH (16:33)
[2017-03-16] MEDS: eZETimibe 10 MG (ZETIA) TABLET PO SCH (16:33)
[2017-03-16] MEDS: lisINopril 10 MG (PRINIVIL) TAB PO SCH (22:10)
[2017-03-17] VITALS: BP 152/80
[2017-03-17 03:57] VITALS: BP 155/83
[2017-03-17] MEDS: CYCLOBENZAPRINE 10 MG (FLEXERIL) TAB PO SCH (03:58)
[2017-03-17] MEDS: PANTOPRAZOLE 40 MG (PROTONIX) TAB PO SCH (03:59)
[2017-03-17] MEDS: IRON POLYSAC 150 MG CAP (NIFEREX) PO SCH (03:59)
[2017-03-17] MEDS: CELECOXIB 100 MG (CeleBREX) CAP PO SCH (03:59)
[2017-03-17] MEDS: ESCITALOPRAM 20 MG (LEXAPRO) TABLET PO SCH (03:59)
[2017-03-17] MEDS: oxyCODONE ER 40 MG (oxyCONTIN CR) TAB PO SCH (03:59)
[2017-03-17] MEDS: RT-ALBUTEROL/IPRATROPIUM 3 ML (DUONEB) VIAL INH SCH (06:49)
[2017-03-17 07:35] VITALS: BP 130/78
[2017-03-17] MEDS: cefTRIAXone INJECTION 1,000 MG in NS (IVPB) 50 ML IV SCH (08:09)
--- NOTE | 2017-03-17 08:37 | Progress Note-Cardiology ---
Cardiology SOAP Progress Note Subjective: No new c/o. Spouse at the bedside. They feel the swelling and redness to the LLE is improving. Objective: I&O/Vital Signs Vital Sign - Last 12Hours 03/16/17 03/17/17 03/17/17 03/17/17 22:08 00:00 03:57 06:50 Temp 97.6 97.2 Pulse 77 74 65 Resp 16 18 B/P (MAP) 154/80 152/80 155/83 Pulse Ox 95 96 95 O2 Delivery Room Air Room Air Room Air 03/17/17 03/17/17 07:35 08:18 Temp 97.4 Pulse 70 Resp 20 B/P (MAP) 130/78 Pulse Ox 95 O2 Delivery Room Air Room Air Weight (Pounds): 254 Weight (Ounces): 6.0 Weight (Calculated Kilograms): 115.262806 Constitutional: AAO x 3 Respiratory: chest expansion is symmetric, chest is bilaterally symmetric, other (diminished bases bilat) Cardiovascular: regular rate-rhythm, No JVD, S1 and S2 Gastrointestional: soft, round, audible bowel sounds Extremities: other (Left lower extremity from the calf to foot with 2-3(+) edema, redness and warmth, serous drainage with blistering ) Neurologic/Psychiatric: grossly intact Skin: other (as above) A/P: Assessment: Card status clinically stable. Echo of 03/14/17 showed LVEF 60-65%, no significant valvular heart disease LLE cellulitis with suspected sepsis - management per medical/surgical services Acute mental status changes likely due to septicemia - improving H/o card cath in or around 1999 after which he was told he did not have any significant CAD ([employer], [place], [place]) HLP - statin tx - followed by PCP Suspected sleep apnea H/O left knee TKR with revisions - most recent revision [place] [address] Muniz (h/o infected joint in the past) Acute on chronic renal insufficiency Chronic narcotic analgesic use Plan: Continue current regimen Out pt f/u NORMA ORDONEZ Mar 17, 2017 08:37
[2017-03-17] MEDS: VANCOMYCIN 1,750 MG/NS 500 ML IVPB IV SCH ×2 (08:43)
[2017-03-17] MEDS ORDERED: SULF1TAB35 PO (09:34)
--- NOTE | 2017-03-17 09:35 | Discharge Summary-Hospitalist ---
Diagnosis/Chief Complaint Date of Admission Mar 13, 2017 at 10:20 Date of Discharge Discharge Date: Mar 17, 2017 Admission Diagnosis Assessment: Left lower leg cellulitis with fever of 104 w/confusion from SIRS and pain meds/ muscle relaxants/gabapentin h/o left knee septic joint managed by Dr Cristy heath/current cellulitis approaching joint so consulting Dr Muniz Chronic back pain narcotic dependent Suspicious for LORI and CAD no w/u in past consulting Dr Silva Leukocytosis Crackles on lung exam LLL ordering CXR and Nebs HTN HLP CRI creat 1.7 today Discharge Diagnosis Assessment: Left lower leg cellulitis with fever of 104 w/confusion from SIRS and pain meds/ muscle relaxants/gabapentin now much improved and less erythema ready for dc h/o left knee septic joint managed by Dr Cristy heath/current cellulitis approaching joint so consulting Dr Muniz as an outpt Chronic back pain narcotic dependent Suspicious for LORI and CAD no w/u in past consulting Dr Silva Leukocytosis Crackles on lung exam LLL s/p CXR and Nebs now resolved and CXR normal HTN HLP CRI creat 1.7 yesterday now 1.24 Patient doing much better and less lethargy even though insisted on giving him his home dose of gabapentin and Flexeril that caused oversedation yesterday but patient is doing well and eating a box of daylight doughnuts Labs much improved Vancomycin and Rocephin maintained Physical therapy assessed the patient to have no needs and no difficulty ambulating Line of demarcation has progressed of erythema Checked meds and labs No fever, vital signs stable, pleasant, improved Regular rate and rhythm, clear to auscultation bilaterally no crackles today Less edema and erythema of the left lower leg much improved Laboratory Tests 03/13/17 14:18 03/14/17 04:09 Assessment: Left lower leg cellulitis with fever of 104 w/confusion from SIRS and pain meds/ muscle relaxants/gabapentin now much improved and less erythema h/o left knee septic joint managed by Dr Cristy heath/current cellulitis approaching joint so consulting Dr Muniz Chronic back pain narcotic dependent Suspicious for LORI and CAD no w/u in past consulting Dr Silva Leukocytosis Crackles on lung exam LLL s/p CXR and Nebs now resolved and CXR normal HTN HLP CRI creat 1.7 yesterday now 1.24 Plan: HLIVF Limit pain meds if possible Monitor creatinine Vanc and Rocephin empirically but may be able to DC Friday on PO abx Consult Iva Erazo and Cristy are appreciated Discharge Summary Discharge Physical Examination Allergies: Coded Allergies: Penicillins (Unverified Allergy, Unknown, 04/11/14) Vitals & I&Os Vital Signs Date Time Temp Pulse Resp B/P (MAP) Pulse Ox O2 Delivery O2 Flow Rate FiO2 03/17/17 13:20 03/17/17 12:42 97.4 68 20 96 Room Air 03/13/17 10:20 3.00 Hospital Course Hospital course: patient had an uneventful hospital course. He was admitted after transferred from [facility] in case Dr Muniz needed to assess the left knee of which he had septic arthritis in 2013. He was placed on empiric abx of Rocephin and Vanc and had good results. Lab returned back to baseline and his mentation improved dramatically eventhough he maintains on a large amount of narcotics and muscle relaxers. Lab was stable and vitals stable and much improved left lower leg at day of DC but he will need to use wide david wraps to help compression therapy decrease the lymphedema and the family and patient understand this plan. He will have close f/u with Dr Bergman his PCP in [place] and all records were sent to him at family request. Discharge Home Medications: Active Scripts Active Bactrim Ds Tablet (Sulfamethoxazole/Trimethoprim) 1 Each Tablet 1 Each PO BID Reported Percocet 10-325 mg Tablet (Oxycodone HCl/Acetaminophen) 1 Each Tablet 2 Tab PO 1130,2230 Vitamin B-12 (Cyanocobalamin (Vitamin B-12)) 2,500 Mcg Tab.subl 2,500 Mcg SL 1130,1630 Gabapentin 300 Mg Capsule 1,200 Mg PO 2230 TAKES 4 (300MG) CAPSULES Poly-Iron (Iron Polysaccharide Complex) 150 Mg Capsule 150 Mg PO 0430,1630 Foltanx Rf Capsule (Levomefolate/B6/B12/Algal Oil) 1 Each Capsule 1 Cap PO 1630 Ezetimibe 10 Mg Tablet 10 Mg PO 1630 Celecoxib 200 Mg Capsule 200 Mg PO 043,1630 Potassium Chloride 10 Meq Tablet.er 10 Meq PO 1130,2230 Lisinopril 10 Mg Tablet 10 Mg PO 2230 Gabapentin 300 Mg Capsule 600 Mg PO 1130,1630 TAKES 2 (300MG) CAPSULES Lipitor Tablet (Atorvastatin) 20 Mg Tablet 20 Mg PO 1630 Furosemide 40 Mg Tablet 40 Mg PO 1630 Cyclobenzaprine Hcl (Cyclobenzaprine HCl) 10 Mg Tablet 10 Mg PO 2230,0430 Lidoderm 5% Patch (Lidocaine) 1 Ea Patch 1 Patch TOP DAILY PRN Lexapro (Escitalopram Oxalate) 20 Mg Tablet 20 Mg PO 0430,1630 Nexium (Esomeprazole Magnesium) 40 Mg Capsule.dr 40 Mg PO 0430 Oxycontin (Oxycodone Hcl) 80 Mg Tab.sr.12h 80 Mg PO 0430,1630 Instructions to patient/family Please see electonic discharge instructions given to patient. Clinical Quality Measures DVT/VTE Risk/Contraindication: Risk Factor Score Per Nursin RFS Level Per Nursing on Admit: 4+=Very High Contraindications-Mechi: Other *list below* Other: cellulitis of the lower leg NINFA MARTIN DO Mar 17, 2017 09:35
[2017-03-17] MEDS: GABAPENTIN 600 MG (NEURONTIN) TAB PO SCH (10:44)
[2017-03-17] MEDS: KCL 10 MEQ TAB (MICRO K) PO SCH (10:44)
[2017-03-17] MEDS: oxyCODONE/APAP 10/325MG (PERCOCET 10) TABLET PO SCH (10:44)
[2017-03-17] MEDS: ENOXAPARIN 40 MG/0.4 ML (LOVENOX) SYR SC SCH (10:45)
[2017-03-17 12:42] VITALS: BP 131/80
[2017-03-18] MEDS ORDERED: TROUGH ORDER-PHARMACY XX NR (08:00)
== END 2017-03-17 13:25 | disposition home or self-care (01) | DRG 603 ==
LOC: 4TH 10:20
PROVIDERS: ADMIT Internal Medicine; ATTEND Internal Medicine
DX: L03.115 Cellulitis of right lower limb (principal); F11.20 Opioid dependence, uncomplicated; I12.9 Hypertensive chronic kidney disease with stage 1 through stage 4 chronic kidney disease, or unspecified chronic kidney disease; N18.9 Chronic kidney disease, unspecified; G62.9 Polyneuropathy, unspecified; N28.9 Disorder of kidney and ureter, unspecified; E78.5 Hyperlipidemia, unspecified; M54.9 Dorsalgia, unspecified; G89.29 Other chronic pain; M25.50 Pain in unspecified joint; R41.0 Disorientation, unspecified; R40.0 Somnolence; T48.1X5A Adverse effect of skeletal muscle relaxants [neuromuscular blocking agents], initial encounter; T43.8X5A Adverse effect of other psychotropic drugs, initial encounter; Z96.652 Presence of left artificial knee joint; Z87.891 Personal history of nicotine dependence
CPT/HCPCS: 36415; 71020; 80053; 80202; 85007; 85025; 85027; 85652; 86141; 93005; 93306; 94640; 94664; 94760

== ENCOUNTER → 2017-04-29 | Outpatient (CLI) | payer BC, MEDICARE ==
[~2017-04-29] VITALS: Ht 175.3 cm; Wt 115.7 kg
[~2017-04-29] MED LIST changes: +CATHETER FLUSH 10 ML SYR IV PRN; +CELE-63 PO; +CYAN25003 SL; +EZET10TA27 PO; +IRON150C13 PO; +LEVO1CAP9 PO; +LISI10TA2 PO; +OXYC-202 PO; +POTA10TA10 PO; +REGADENOSON 0.4 MG/5 ML SYR (LEXISCAN) IV ONE; +SULF1TAB35 PO
== END ==
LOC: CARD 07:22
PROVIDERS: ATTEND Nurse Practitioner Family
DX: E78.4 Other hyperlipidemia (principal); N18.2 Chronic kidney disease, stage 2 (mild); G47.33 Obstructive sleep apnea (adult) (pediatric); R06.09 Other forms of dyspnea
CPT/HCPCS: 78452; 93017

== ENCOUNTER 2017-05-23 19:03 | Inpatient (IN) | payer BC, MEDICARE ==
[~2017-05-23] VITALS: Ht 175.3 cm; Wt 123.8 kg
[~2017-05-23 19:03] MED LIST changes: -CATHETER FLUSH 10 ML SYR IV PRN; -REGADENOSON 0.4 MG/5 ML SYR (LEXISCAN) IV ONE
--- OUTSIDE RECORDS SUMMARY | 2017-05-23 19:12 | XMS REPORT ---
Author Author Dutch Bergman [facility] Address [address] [place], [place] [id number] Care Team Providers Care Title I Assistant Name Role Phone Dutch Bergman PCP [...] 12/21/2015 TAKE 1 TABLET BY MOUTH DAILY gabapentin 300 mg oral capsule 02/02/2016 [...] (10 mg) by oral route once daily lidocaine 5 % topical adhesive patch,medicated 07/15/2016 [...] route every 12 hours for 30 days ezetimibe 10 mg oral tablet take 1 tablet (10 mg) by oral route once daily Bactrim DS 800-160 mg oral tablet 03/20/2017 03/27/2017 take 1 tablet by oral route 2 times a day for 7 days Name Start Date Expiration [...] oral route once daily for 7 days Zetia 10 mg oral tablet 06/13/2016 03/10/2017 take 1 tablet (10 mg) by oral route once daily for 30 days Discontinued Name Start Date [...] TAKE 1 CAPSULE BY MOUTH TWICE DAILY potassium chloride 10 mEq oral capsule, extended release 02/02/2016 03/20/2017 TAKE 1 CAPSULE BY MOUTH TWICE DAILY Flonase Allergy Relief 50 mcg/actuation nasal spray,suspension 01/13/20172016 inhale 1 puff by nasal route 2 times a day Problem List Description Status Onset Low back pain Active 06/24/2011 Hyperlipidemia Active Hypertension Active 05/23/2016 Vital Signs Date Time BP-Sys(mm[Hg] BP-Gwen(mm[Hg]) HR(bpm) RR(rpm) Temp WT HT HC BMI BSA BMI Percentile O2 Sat(%) 03/20/2017 11:03:00 AM 134 mmHg 72 mmHg 76 bpm 18 rpm 96.1 F 252.125 lbs 69 in 37.23 kg/m2 2.36 m2 96 % 03/04/2017 8:13:00 AM 118 mmHg 74 mmHg 71 bpm 14 rpm 96.3 F 252 lbs 69 in 37.2135 kg/m 2.359 m 94 % 12/02/2016 8:58:00 AM 128 mmHg [...] 05/29/2016 12:00 AM Decadron, Per 1 Mg [facility]# [address]-08 Reviewed 05/29/2016 12:00 AM Depo-Medrol, Per 80 Mg [facility]#[id number] Reviewed 08/29/2016 12:00 AM LIPID PANEL Reviewed 10/01/2016 12:00 AM COMPLETE CBC W/AUTO DIFF WBC Reviewed 10/01/2016 12:00 AM COMPREHEN METABOLIC PANEL Reviewed 06/08/2012 12:00 AM Depo-Medrol 80 Mg Im/C'hallie Reviewed 06/08/2012 12:00 AM Decadron, Per 1 Mg [facility]# [id number] Reviewed 06/17/2013 12:00 AM LIPID PANEL Reviewed 09/17/2013 12:00 AM COMPREHEN METABOLIC PANEL Reviewed 09/17/2013 12:00 AM LIPID PANEL Reviewed 09/17/2013 12:00 AM Prostate Cancer Screening Reviewed 09/17/2013 12:00 AM Decadron, Per 1 Mg [facility]# [id number] Reviewed 09/17/2013 12:00 AM Depo-Medrol 80 Mg [...] Low Back Pain Mar 04 2017 8:14AM Cellulitis of right lower extremity Mar 20 2017 11:05AM Payers Insurance Name Company Name Plan Name Plan Number Policy Number Policy Group Number [id number] Medicare [facility] [id number] Wednesday, 2012 Medicare Part A Medicare Part A [id number] Wednesday, 2012 Medicare Part A [id number] A Secondary [id number] N/A Medicare Part A Medicare - Lab/Xray [id number] Wednesday, December 26, 2012 History of Encounters Visit Date Visit Type Provider 03/20/2017 Office visit Dutch Bergman MD 03/04/2017 Office visit Dutch Bergman MD 12/02/2016 Office visit Dutch Bergman MD 08/29/2016 Office visit Dutch Bergman MD 06/03/2016 Office visit Dutch Bergman MD 05/29/2016 Office visit Dutch Bergman MD 05/23/2016 Office visit Ramandeep Dsouza [employer] REPA[employer] 02/27/2016 Office visit Dutch Bergman MD 12/04/2015 Office visit Dutch Bergman MD 11/15/2015 Office visit Dutch Bergman MD 08/16/2015 Office visit Dutch Bergman MD 07/26/2015 Office visit Ramandeep Dsouza MACHINE [employer] REPAIRER 05/19/2015 Office visit Dutch Bergman MD 02/16/2015 Office visit Dutch Bergman MD 11/22/2014 Office visit Dutch Bergman MD 08/23/2014 Office visit Dutch Bergman MD 05/25/2014 Office visit 05/25/2014 Office visit Dutch Bergman MD 01/13/2014 Office visit Ramandeep Dsouza MACHINE [employer] REPAIRER 12/22/2013 Office visit Dutch Bergman MD 09/17/2013 [...]
--- OUTSIDE RECORDS SUMMARY | 2017-05-23 19:16 | XMS REPORT ---
Author Author Ramandeep Dsouza [facility] Address [address] [place], [place] [address] Care Team Providers Care Digital Sales Planner Name Role Phone Ramandeep Dsouza PCP Unavailable Dutch Bergman PreferredProvider Unavailable Allergies [...] EVERY DAY cyclobenzaprine 10 mg oral tablet 05/02/2016 TAKE [...] 1 TABLET BY MOUTH THREE TIMES DAILY Poly-Iron 150 mg iron oral capsule 10/23/2016 TAKE 1 CAPSULE BY MOUTH TWICE DAILY WITH MEALS Suphedrin 30 mg oral tablet 03/27/2017 take 1-2 tablets by oral route every [...] oral route once daily for 30 days ezetimibe 10 mg oral tablet 03/24/2017 03/19/2018 TAKE 1 TABLET BY MOUTH ONCE EVERY DAY celecoxib 200 mg oral capsule 04/28/2017 04/23/2018 TAKE 1 CAPSULE BY MOUTH TWICE DAILY Foltanx RF 3 mg-35 mg-2 mg -90.314 mg oral capsule 04/28/2017 11/24/2017 TAKE 1 TABLET BY MOUTH ONCE EVERY DAY ProAir HFA 90 mcg/actuation inhalation HFA aerosol inhaler 05/08/2017 inhale 1 - 2 puffs (90 - 180 mcg) by inhalation route every 4 hours as needed Levaquin 500 mg oral tablet 05/08/2017 take 1 tablet by oral route daily for 7 days Name Start Date [...] oral route once daily for 30 days Metanx (algal oil) 3 mg-35 mg-2 mg -90.314 mg oral capsule 10/10/20162016 take 1 capsule by oral route daily for 30 days OxyContin 80 mg oral tablet,oral only,ext.rel.12 hr 03/04/2017 04/03/2017 take 1 tablet (80mg) by oral route every 12 hours for 30 days Bactrim DS 800-160 mg oral tablet 03/20/2017 03/27/2017 take 1 tablet by oral route 2 times a day for 7 days Discontinued Name Start Date [...] HC BMI BSA BMI Percentile O2 Sat(%) 05/08/2017 11:07:00 AM 120 mmHg 63 mmHg 76 bpm 20 rpm 97.6 F 259 lbs 69 in 38.25 kg/m2 2.39 m2 95 % 05/05/2017 12:39:00 PM 124 mmHg 80 mmHg 69 bpm 24 rpm 97.8 F 262 lbs 69 in 38.6902 kg/m 2.4053 m 94 % 04/16/2017 2:29:00 PM 124 mmHg 78 mmHg 73 bpm 24 rpm 98.3 F 258 lbs 69 in 38.10 kg/m2 2.39 m2 94 % 04/02/2017 9:25:00 AM 126 mmHg 72 mmHg 72 bpm 18 rpm 96.7 F 251.125 lbs 69 in 37.0843 kg/m 2.3549 m 96 % 03/20/2017 11:03:00 AM 134 mmHg 72 mmHg [...] 05/29/2016 12:00 AM Decadron, Per 1 Mg [facility]# [address]-88 Reviewed 05/29/2016 12:00 AM Depo-Medrol, Per 80 Mg [facility]#[address]-08 Reviewed 08/29/2016 12:00 AM LIPID PANEL Reviewed 10/01/2016 12:00 AM COMPLETE CBC W/AUTO DIFF WBC Reviewed 10/01/2016 12:00 AM COMPREHEN METABOLIC PANEL Reviewed 04/02/2017 12:00 AM COMPLETE CBC W/AUTO DIFF WBC Returned 04/02/2017 12:00 AM COMPREHEN METABOLIC PANEL Returned 04/02/2017 12:00 AM CHEST X-RAY 2VW FRONTAL&LATL Returned 04/02/2017 12:00 AM C-REACTIVE PROTEIN Returned 04/03/2017 12:00 AM HEMOGLOBIN Returned 04/03/2017 12:00 AM HEMATOCRIT Returned 04/03/2017 12:00 AM OCCULT BLOOD FECES Returned 05/08/2017 12:00 AM COMPLETE CBC W/AUTO DIFF WBC Returned 05/08/2017 12:00 AM CHEST X-RAY 2VW FRONTAL&LATL Returned 06/08/2012 12:00 AM Depo-Medrol 80 Mg Im/C'hallie Reviewed 06/08/2012 12:00 AM Decadron, Per 1 Mg [facility]# [address]-46 Reviewed 06/17/2013 12:00 AM LIPID PANEL Reviewed 09/17/2013 12:00 AM COMPREHEN METABOLIC PANEL Reviewed 09/17/2013 12:00 AM LIPID PANEL Reviewed 09/17/2013 12:00 AM Prostate Cancer Screening Reviewed 09/17/2013 12:00 AM Decadron, Per 1 Mg [facility]# [address]-78 Reviewed 09/17/2013 12:00 AM Depo-Medrol 80 Mg [...] right lower extremity Mar 20 2017 11:05AM Dyspnea Apr 02 2017 9:27AM Cellulitis of right lower extremity Apr 02 2017 9:27AM Anemia Apr 03 2017 1:18PM Iron deficiency anemia, unspecified Apr 16 2017 2:29PM Postoperative Follow-up May 05 2017 12:39PM Benign colon polyp May 05 2017 12:39PM Acquired diverticulosis of colon May 05 2017 12:39PM Chronic hypertrophic gastritis May 05 2017 12:39PM Shortness Of Breath May 08 2017 11:09AM Cough May 08 2017 11:09AM Anemia, unspecified type May 08 2017 11:09AM Payers Insurance Name Company Name Plan Name Plan Number Policy Number Policy Group Number Start Date [employer]BS [employer] [id number] August Medicare RHC Medicare [facility] [id number] Wednesday, 2012 Medicare Part B Medicare Secondary [id number] N/A Medicare Part A Medicare Part A [id number] Wednesday, 2012 Medicare Part A zzzMedicare A Secondary [id number] N/A Medicare Part A Medicare - Lab/Xray [id number] Wednesday, December 26, 2012 History of Encounters Visit Date Visit Type Provider 05/08/2017 Office visit Ramandeep Dsouza APRN 05/05/2017 Office visit Luciano Crouch MD 04/24/2017 Surgery Luciano Crouch MD 04/16/2017 Office visit 04/16/2017 Office visit Luciano Crouch MD 04/02/2017 Office visit Dutch Bergman MD 03/20/2017 Office visit Dutch Bergman MD 03/04/2017 [...]
--- OUTSIDE RECORDS SUMMARY | 2017-05-23 19:18 | XMS REPORT ---
Author Author Dutch Bergman [facility] Address [address] [place], [place] [address] Care Team Providers Care Wooden Boat Builder Name Role Phone Dutch Bergman PCP Unavailable [...] 10/10/2016 12:00 AM CBC With Auto Differential 04/02/2017 12:00 AM CMP 04/02/2017 12:00 AM Chest x-ray, PA and lateral 04/02/2017 12:00 AM CRP 04/02/2017 12:00 AM CBC With Auto Differential 06/17/2013 [...] 1 TABLET BY MOUTH ONCE EVERY DAY Name Start Date Expiration Date SIG Comments [...] oral route once daily for 30 days Bactrim DS 800-160 mg [...] HC BMI BSA BMI Percentile O2 Sat(%) 04/02/2017 9:25:00 AM 126 mmHg 72 mmHg 72 bpm 18 rpm 96.7 F 251.125 lbs 69 in 37.08 kg/m2 2.35 m2 96 % 03/20/2017 11:03:00 AM 134 mmHg 72 mmHg 76 bpm 18 rpm 96.1 F 252.125 lbs 69 in 37.232 kg/m 2.3596 m 96 % 03/04/2017 8:13:00 AM 118 mmHg [...] Per 1 Mg [facility]# [address]-10 Reviewed 05/29/2016 12:00 AM Depo-Medrol, Per 80 Mg [facility]#[address]-85 Reviewed 08/29/2016 12:00 AM LIPID PANEL Reviewed 10/01/2016 12:00 AM COMPLETE CBC W/AUTO DIFF WBC Reviewed 10/01/2016 12:00 AM COMPREHEN METABOLIC PANEL Reviewed 06/08/2012 12:00 AM Depo-Medrol 80 Mg Im/C'hallie Reviewed 06/08/2012 12:00 AM Decadron, Per 1 Mg [facility]# [address]-08 Reviewed 06/17/2013 12:00 AM LIPID PANEL Reviewed 09/17/2013 12:00 AM COMPREHEN METABOLIC PANEL Reviewed 09/17/2013 12:00 AM LIPID PANEL Reviewed 09/17/2013 12:00 AM Prostate Cancer Screening Reviewed 09/17/2013 12:00 AM Decadron, Per 1 Mg [facility]# [address]-37 Reviewed 09/17/2013 12:00 AM Depo-Medrol 80 Mg [...] right lower extremity Apr 02 2017 9:27AM Payers Insurance Name Company Name Plan Name Plan Number Policy Number Policy Group Number Start Date BCBS [employer] [id number] August Medicare RHC Medicare RHC [id number] Wednesday, 2012 Medicare Part A Medicare Part A [id number] Wednesday, 2012 Medicare Part A zzzMedicare A Secondary [id number] N/A Medicare Part A Medicare - Lab/Xray [id number] Wednesday, December 26, 2012 History of Encounters Visit Date Visit Type Provider 04/02/2017 Office visit Dutch Bergman MD 03/20/2017 [...]
--- OUTSIDE RECORDS SUMMARY | 2017-05-23 19:19 | XMS REPORT ---
Author Author Dutch Bergman [facility] Address [address] [place], [place] [address] Care Team Providers Care Arts And Sciences Dean Name Role Phone Dutch Bergman PCP Unavailable [...] 12:00 AM VITAMIN B12 10/10/2016 12:00 AM HEMOGLOBIN 04/03/2017 12:00 AM HEMATOCRIT 04/03/2017 12:00 AM Stool occult blood detection 04/03/2017 12:00 AM CBC With Auto Differential 06/17/2013 [...] AM Decadron, Per [address] [facility]# [address]-97 Reviewed 05/29/2016 12:00 AM Depo-Medrol, Per [address] [facility]#[address]-62 Reviewed 08/29/2016 12:00 AM LIPID PANEL Reviewed 10/01/2016 12:00 AM COMPLETE CBC W/AUTO DIFF WBC Reviewed 10/01/2016 12:00 AM COMPREHEN METABOLIC PANEL Reviewed 04/02/2017 12:00 AM COMPLETE CBC W/AUTO DIFF WBC Returned 04/02/2017 12:00 AM COMPREHEN METABOLIC PANEL Returned 04/02/2017 12:00 AM CHEST X-RAY 2VW FRONTAL&LATL Returned 04/02/2017 12:00 AM C-REACTIVE PROTEIN Returned 06/08/2012 12:00 AM Depo-Medrol 80 Mg Im/C'hallie Reviewed 06/08/2012 12:00 AM Decadron, Per [address] [facility]# [address]-51 Reviewed 06/17/2013 12:00 AM LIPID PANEL Reviewed 09/17/2013 12:00 AM COMPREHEN METABOLIC PANEL Reviewed 09/17/2013 12:00 AM LIPID PANEL Reviewed 09/17/2013 12:00 AM Prostate Cancer Screening Reviewed 09/17/2013 12:00 AM Decadron, Per [address] [facility]# [address]-87 Reviewed 09/17/2013 12:00 AM Depo-Medrol 80 Mg [...] 2017 9:27AM Anemia Apr 03 2017 1:18PM Payers Insurance Name Company Name Plan Name Plan Number Policy Number Policy Group Number Start Date BCBS [employer] [place] [id number] August Medicare RHC Medicare RHC [id number] Wednesday, 2012 Medicare Part A Medicare Part A [id number] Wednesday, 2012 Medicare Part A zzzMedicare A Secondary [id number] N/A Medicare Part A Medicare - Lab/Xray [id number] Wednesday, December 26, 2012 History of Encounters Visit Date Visit Type Provider 04/02/2017 Office visit Dutch Bergman MD 03/20/2017 Office visit Dutch Bergman MD 03/04/2017 Office visit Dutch Bergman MD 12/02/2016 Office visit Dutch Bergman MD 08/29/2016 Office visit Dutch Bergman MD 06/03/2016 Office visit Ducth Bergman MD 05/29/2016 Office visit Dutch Bergman [...]
--- OUTSIDE RECORDS SUMMARY | 2017-05-23 19:20 | XMS REPORT ---
Author Author Dutch Bergman [facility] Address [address] [place], [place] [address] Care Team Providers Care Audit Manager Name Role Phone Dutch Bergman PCP [...] 12:00 AM Decadron, Per 1 Mg [facility]# [address]-81 Reviewed 05/29/2016 12:00 AM Depo-Medrol, Per 80 Mg [facility]#[address]-03 Reviewed 08/29/2016 12:00 AM LIPID PANEL Reviewed [...] 12:00 AM Decadron, Per 1 Mg [facility]# [address]-20 Reviewed 06/17/2013 12:00 AM LIPID PANEL Reviewed 09/17/2013 12:00 AM COMPREHEN METABOLIC PANEL Reviewed 09/17/2013 12:00 AM LIPID PANEL Reviewed 09/17/2013 12:00 AM Prostate Cancer Screening Reviewed 09/17/2013 12:00 AM Decadron, Per 1 Mg [facility]# [address]-51 Reviewed 09/17/2013 12:00 AM Depo-Medrol 80 Mg [...] Group Number Start Date BCBS [employer] [place] [id number] August Medicare RHC Medicare RHC [id number] Wednesday, 2012 Medicare Part A Medicare Part A [id number] Wednesday, 2012 Medicare Part A zzzMedicare A Secondary [id number] N/A Medicare Part A Medicare - Lab/Xray [id number] Wednesday, December 26, 2012 History of Encounters [...]
--- OUTSIDE RECORDS SUMMARY | 2017-05-23 19:25 | XMS REPORT ---
Author Author Luciano Crouch [facility] Address [address] [place], [place] [address] Care Team Providers Care Wet Finisher Name Role Phone Luciano Crouch PCP Unavailable Dutch Bergman PreferredProvider Unavailable Allergies [...] HC BMI BSA BMI Percentile O2 Sat(%) 04/16/2017 2:29:00 PM 124 mmHg 78 mmHg [...] 05/29/2016 12:00 AM Decadron, Per 1 Mg [facility]# [address]-32 Reviewed 05/29/2016 12:00 AM Depo-Medrol, Per 80 Mg [facility]#[address]-49 Reviewed 08/29/2016 12:00 AM LIPID PANEL Reviewed [...] 04/03/2017 12:00 AM OCCULT BLOOD FECES Returned 06/08/2012 12:00 AM Depo-Medrol 80 Mg Im/C'hallie Reviewed 06/08/2012 12:00 AM Decadron, Per 1 Mg [place]# [address]-84 Reviewed 06/17/2013 12:00 AM LIPID PANEL Reviewed 09/17/2013 12:00 AM COMPREHEN METABOLIC PANEL Reviewed 09/17/2013 12:00 AM LIPID PANEL Reviewed 09/17/2013 12:00 AM Prostate Cancer Screening Reviewed 09/17/2013 12:00 AM Decadron, Per 1 Mg [facility]# [address]-17 Reviewed 09/17/2013 12:00 AM Depo-Medrol 80 Mg [...] deficiency anemia, unspecified Apr 16 2017 2:29PM Payers Insurance Name Company Name Plan Name Plan Number Policy Number Policy Group Number Start Date BCBS Bcbs [facility] [id number] August Medicare RHC Medicare RHC [id number] Wednesday, 2012 Medicare Part B Medicare Secondary [id number] N/A Medicare Part A Medicare Part A [id number] Wednesday, 2012 Medicare Part A zzzMedicare A Secondary [id number] N/A Medicare Part A Medicare - Lab/Xray [id number] Wednesday, December 26, 2012 History of Encounters Visit Date Visit Type Provider 04/16/2017 Office visit 04/16/2017 Office visit Luciano Crouch MD 04/02/2017 Office visit Dutch Bergman MD 03/20/2017 Office visit Dutch Bergman MD 03/04/2017 Office visit Dutch Bergman MD 12/02/2016 Office visit Dutch Bergman MD 08/29/2016 Office visit Dutch Bergman MD 06/03/2016 Office visit Dutch Bergman MD 05/29/2016 Office visit Dutch Bergman MD 05/23/2016 Office visit Ramandeep Dsouza APRN 02/27/2016 Office visit Ducth Bergman MD 12/04/2015 Office visit Dutch Bergman MD 11/15/2015 Office visit Dutch Bergman MD 08/16/2015 Office visit Dutch Bergman MD 07/26/2015 Office visit Ramandeep Dsouza APRN 05/19/2015 Office visit Dutch Bergman MD 02/16/2015 Office visit Dutch Bergmna MD 11/22/2014 Office visit Dutch Bergman MD [...]
--- OUTSIDE RECORDS SUMMARY | 2017-05-23 19:27 | XMS REPORT ---
Author Author Luciano Crouch [facility] Address [address] [place], [place] [address] Care Team Providers Care Software Developer Consultant Name Role Phone Luciano Crouch PCP Unavailable [...] HC BMI BSA BMI Percentile O2 Sat(%) 05/05/2017 12:39:00 PM 124 mmHg 80 mmHg 69 bpm 24 rpm 97.8 F 262 lbs 69 in 38.69 kg/m2 2.41 m2 94 % 04/16/2017 2:29:00 PM 124 mmHg 78 mmHg 73 bpm 24 rpm 98.3 F 258 lbs 69 in 38.0995 kg/m 2.3869 m 94 % 04/02/2017 9:25:00 AM 126 mmHg [...] 05/29/2016 12:00 AM Decadron, Per 1 Mg [facility]# [address]-91 Reviewed 05/29/2016 12:00 AM Depo-Medrol, Per 80 Mg [facility]#[address]-69 Reviewed 08/29/2016 12:00 AM LIPID PANEL Reviewed [...] 06/08/2012 12:00 AM Decadron, Per 1 Mg [facility]# [address]-73 Reviewed 06/17/2013 12:00 AM LIPID PANEL Reviewed 09/17/2013 12:00 AM COMPREHEN METABOLIC PANEL Reviewed 09/17/2013 12:00 AM LIPID PANEL Reviewed 09/17/2013 12:00 AM Prostate Cancer Screening Reviewed 09/17/2013 12:00 AM Decadron, Per 1 Mg [facility]# [address]-06 Reviewed 09/17/2013 12:00 AM Depo-Medrol 80 Mg [...] Chronic hypertrophic gastritis May 05 2017 12:39PM Payers Insurance Name Company Name Plan Name Plan Number Policy Number Policy Group Number Start Date BCBS Bcbs [facility] [id number] August Medicare RHC Medicare RHC [id number] Wednesday, 2012 Medicare Part B Medicare Secondary [id number] N/A Medicare Part A Medicare Part A [id number] Wednesday, 2012 Medicare Part A zzzMedicare A Secondary [id number] N/A Medicare Part A Medicare - Lab/Xray [id number] Wednesday, December 26, 2012 History of Encounters Visit Date Visit Type Provider 05/05/2017 Office visit Luciano Crouch MD 04/24/2017 [...] MD 07/26/2015 Office visit Ramandeep Dsouza OIL PRODUCER 05/19/2015 Office visit Dutch Bergman MD 02/16/2015 Office visit Dutch Bergman MD 11/22/2014 Office visit Dutch Bergman MD 08/23/2014 Office visit Dutch Bergman MD 05/25/2014 Office visit 05/25/2014 Office visit Dutch Bergman MD 01/13/2014 Office visit Ramandeep Dsouza OIL PRODUCER 12/22/2013 Office visit Dutch Bergman MD 09/17/2013 [...]
--- OUTSIDE RECORDS SUMMARY | 2017-05-23 19:32 | XMS REPORT ---
Author Author Dutch Bergman [facility] Address [address] [place], [place] [address] Care Team Providers Care Licensed Veterinary Technician Name Role Phone Dutch Bergman PCP Unavailable [...] 11/25/2016 TAKE 1 TABLET BY MOUTH DAILY potassium chloride 10 mEq oral tablet extended [...] inhalation route every 4 hours as needed prednisone 20 mg oral tablet 05/13/2017 take 1 tablet (20 mg) by oral route once daily for 7 days Levaquin 500 mg oral tablet 05/13/2017 take 1 tablet by oral route daily for 7 days OxyContin 80 mg oral tablet,oral only,ext.rel.12 hr 05/13/2017 06/12/2017 take 1 tablet (80mg) by oral route every 12 hours for 30 days Percocet 10-325 mg oral tablet 05/13/2017 take 1-2 tabs every 4 to 6 [...] by oral route daily for 30 days Bactrim DS 800-160 [...] DAILY Nexium 40 mg oral capsule,delayed release(/EC) 07/12/2013 08/23/2014 TAKE 1 CAPSULE BY MOUTH [...] DAILY esomeprazole strontium 49.3 mg oral capsule,delayed release(/EC) 04/04/2014 TAKE 1 CAPSULE BY MOUTH EVERY [...] HC BMI BSA BMI Percentile O2 Sat(%) 05/13/2017 8:07:00 AM 122 mmHg 76 mmHg 71 bpm 16 rpm 96 F 260.5 lbs 69 in 38.47 kg/m2 2.40 m2 97 % 05/08/2017 11:07:00 AM 120 mmHg 63 mmHg 76 bpm 20 rpm 97.6 F 259 lbs 69 in 38.2472 kg/m 2.3915 m 95 % 05/05/2017 12:39:00 PM 124 mmHg [...] 05/29/2016 12:00 AM Decadron, Per 1 Mg [facility]# [address]-74 Reviewed 05/29/2016 12:00 AM Depo-Medrol, Per 80 Mg [facility]#[address]-19 Reviewed 08/29/2016 12:00 AM LIPID PANEL Reviewed [...] 06/08/2012 12:00 AM Decadron, Per 1 Mg [facility]# [address]-16 Reviewed 06/17/2013 12:00 AM LIPID PANEL Reviewed 09/17/2013 12:00 AM COMPREHEN METABOLIC PANEL Reviewed 09/17/2013 12:00 AM LIPID PANEL Reviewed 09/17/2013 12:00 AM Prostate Cancer Screening Reviewed 09/17/2013 12:00 AM Decadron, Per 1 Mg [facility]# [address]-89 Reviewed 09/17/2013 12:00 AM Depo-Medrol 80 Mg [...] Anemia, unspecified type May 08 2017 11:09AM Chronic obstructive pulmonary disease with acute exacerbation May 13 2017 8: 09AM Low Back Pain May 13 2017 8:09AM Payers Insurance Name Company Name Plan Name Plan Number Policy Number Policy Group Number Start Date BCBS [employer] [place] [id number] August Medicare RHC Medicare RHC [id number] Wednesday, 2012 Medicare Part B Medicare Secondary [id number] N/A Medicare Part A Medicare Part A [id number] Wednesday, 2012 Medicare Part A zzzMedicare A Secondary [id number] N/A Medicare Part A Medicare - Lab/Xray [id number] Wednesday, December 26, 2012 History of Encounters Visit Date Visit Type Provider 05/13/2017 Office visit Dutch Bergman MD 05/08/2017 Office visit Ramandeep Dsouza APRN 05/05/2017 [...] Bergman MD 07/26/2015 Office visit Ramandeep Dsouza MANAGER NON PROFIT 05/19/2015 Office visit Dutch Bergman MD 02/16/2015 [...] visit Dutch Bergman MD 03/03/2012 Office visit uDtch Bergman MD 01/02/2012 Office visit Dutch Bergman MD 04/19/2011 Office visit Dutch Bergman MD 10/03/2010 Office visit Dutch Bergman MD 05/31/2010 Office visit Dutch Bergman MD 03/21/2010 Office visit Dutch Bergman MD 12/20/2009 Office visit Dutch Bergman MD 08/31/2009 Office visit Dutch Bergman MD
--- OUTSIDE RECORDS SUMMARY | 2017-05-23 19:35 | XMS REPORT ---
Author Author Ramandeep Dsouza Organization [facility] Address [address] [place], [place] [address] Care Team Providers Care Customer Associate Name Role Phone Ramandeep Dsouza PCP Unavailable [...] 10/10/2016 12:00 AM CBC With Auto Differential 05/08/2017 12:00 AM CX CHEST 2 VIEWS 05/08/2017 12:00 AM CBC With Auto Differential 06/17/2013 [...] 05/29/2016 12:00 AM Decadron, Per 1 Mg [facility]# [address]-72 Reviewed 05/29/2016 12:00 AM Depo-Medrol, Per 80 Mg [facility]#[address]-11 Reviewed 08/29/2016 12:00 AM LIPID PANEL Reviewed [...] 06/08/2012 12:00 AM Decadron, Per 1 Mg [facility]# [address]-81 Reviewed 06/17/2013 12:00 AM LIPID PANEL Reviewed 09/17/2013 12:00 AM COMPREHEN METABOLIC PANEL Reviewed 09/17/2013 12:00 AM LIPID PANEL Reviewed 09/17/2013 12:00 AM Prostate Cancer Screening Reviewed 09/17/2013 12:00 AM Decadron, Per 1 Mg [facility]# [address]-34 Reviewed 09/17/2013 12:00 AM Depo-Medrol 80 Mg [...] Number Policy Group Number [facility] Date [id number] August Medicare RHC Medicare [facility] [id number] Wednesday, 2012 Medicare Part B Medicare Secondary [id number] N/A Medicare Part A Medicare Part A [id number] Wednesday, 2012 Medicare Part A zzzMedicare A Secondary [id number] N/A Medicare Part A Medicare - Lab/Xray [id number] Wednesday, December 26, 2012 History of Encounters [...] visit Dutch Bergman MD 08/16/2015 Office visit uDtch Bergman MD 07/26/2015 Office visit Ramandeep Dsouza [...]
[2017-05-23] MEDS ORDERED: NS IV 1000 ML 1,000 ML IV ONE ×2 (19:45→20:28)
[2017-05-23 19:51] LABS: BASOPHILS # (AUTO) 0.1 10^3/uL (0.0-0.1); BASOPHILS % (AUTO) 1 % (0-10); EOSINOPHILS # (AUTO) 0.6 10^3/uL (0.0-0.3); EOSINOPHILS % (AUTO) 7 % (0-10); LYMPHOCYTES # (AUTO) 2.5 X 10^3 (1.0-4.0); LYMPHOCYTES % (AUTO) 26 % (12-44); MEAN CORPUSCULAR HEMOGLOBIN 32 PG (25-34); MEAN CORPUSCULAR HGB CONC 33 G/DL (32-36); MEAN CORPUSCULAR VOLUME 96 FL (80-99); MEAN PLATELET VOLUME 8.7 FL (7.4-10.4); MONOCYTES # (AUTO) 0.9 X 10^3 (0.0-1.0); MONOCYTES % (AUTO) 9 % (0-12); NEUTROPHILS # (AUTO) 5.5 X 10^3 (1.8-7.8); NEUTROPHILS % (AUTO) 58 % (42-75); PLATELET COUNT 240 10^3/uL (130-400); RED BLOOD COUNT 3.49 10^6/uL (4.35-5.85); RED CELL DISTRIBUTION WIDTH 12.9 % (10.0-14.5); WHITE BLOOD COUNT 9.6 10^3/uL (4.3-11.0)
[2017-05-23 20:01] LABS: INR 0.9 (0.8-1.4)
[2017-05-23 20:09] LABS: ALANINE AMINOTRANSFERASE 40 U/L (0-55); ALBUMIN 4.3 GM/DL (3.2-4.5); AMYLASE 45 U/L (25-125); ANION GAP 12 MMOL/L (5-14); ASPARTATE AMINO TRANSFERASE 78 U/L (5-34); BILIRUBIN,TOTAL 0.5 MG/DL (0.1-1.0); BLOOD UREA NITROGEN 45 MG/DL (7-18); BUN/CREATININE RATIO 17; CALCIUM 8.8 MG/DL (8.5-10.1); CARBON DIOXIDE 22 MMOL/L (21-32); CHLORIDE 94 MMOL/L (98-107); CREATININE SERUM 2.71 MG/DL (0.60-1.30); GFR ESTIMATED 24; GLUCOSE 99 MG/DL (70-105); LIPASE 37 U/L (8-78); POTASSIUM 5.2 MMOL/L (3.6-5.0); SODIUM 128 MMOL/L (135-145); TOTAL PROTEIN 7.5 GM/DL (6.4-8.2)
[2017-05-23 20:12] LABS: BILIRUBIN,URINE NEGATIVE (NEGATIVE); KETONES,URINE NEGATIVE (NEGATIVE); LEUKOCYTE ESTERASE ,URINE NEGATIVE (NEGATIVE); NITRITE,URINE NEGATIVE (NEGATIVE); PH,URINE 5 (5-9); PROTEIN,URINE NEGATIVE (NEGATIVE); UROBILINOGEN,URINE NORMAL (NORMAL)
[2017-05-23 20:15] LABS: TROPONIN I < 0.30 NG/ML (<0.30)
[2017-05-23 20:17] LABS: SQUAMOUS EPITHELIAL CELL,UR RARE /HPF
--- NOTE | 2017-05-23 21:10 | Diagnostic Imaging Report ---
PROCEDURE: CT chest, abdomen and pelvis without contrast. TECHNIQUE: Multiple contiguous axial images were obtained through the chest, abdomen and pelvis without the use of intravenous contrast. INDICATION: Abdominal pain, trouble urinating. FINDINGS: CT CHEST: Noncontrasted images show obstructive interstitial lung disease. There are no acute infiltrates. No masses. No mediastinal or hilar adenopathy of pathologic size. No bony lesion. IMPRESSION: Obstructive interstitial lung disease. CT ABDOMEN/PELVIS: Noncontrasted images show hepatomegaly with some fatty change. Gallbladder and bile ducts are normal. The pancreas and spleen are normal. Adrenal glands are normal. Kidneys appear normal. Aorta is atherosclerotic without aneurysm. Stomach and small bowel are not distended. There is a moderate amount of stool present throughout the colon. The appendix is visualized and normal. There is no evidence of diverticulitis with multiple diverticula in the sigmoid colon. Bladder is normal. The prostate is not enlarged. There are bilateral inguinal lymph nodes measuring upwards of 1.5 cm. Fusion of the lumbosacral spine is noted. No blastic or lytic bony lesions are demonstrated. IMPRESSION: 1. Finding consistent with mild constipation. No acute findings of the bowel. 2. Bladder and prostate appear normal. 3. Atherosclerotic change of the aorta. 4. Multiple mildly enlarged lymph nodes noted within the groin, bilaterally. Dictated by: Dictated on workstation # [id number]
--- NOTE | 2017-05-23 21:40 | ED General ---
General Chief Complaint: General Problems/Pain Stated Complaint: DIFFICULTY URINATING/BACK PAIN/FALL Nursing Triage Note: PT TO ED 9 W/ S.O. FOR C/O DIFFICULTY URINATING, CONSTIPATION, FREQUENT FALLS, DENIES PASSING OUT, SOB, LEG CRAMPS. Nursing Sepsis Screen: No Definite Risk Source of Information: Patient (PT IS AN EXTREMELY POOR AND VAGUE HISTORIAN), Old Records (MOST OF PMH IS FROM OLD RECORD), Spouse (GIVES MOST INFORMATION BUT IS ALSO A LIMITED HISTORIAN) History of Present Illness Time Seen by Provider: 19:25 Initial Comments PT ARRIVES VIA POV FROM HOME PT WITH MULTITUDE OF COMPLAINTS--UNCLEAR HOW LONG MOST HAVE BEEN GOING ON , BUT APPEARS THAT THE MOST RECENT COMPLAINT IS THAT PT STATES "I CAN'T PEE AND I CAN' T POOP"--IS UNCLEAR HOW LONG THIS HAS BEEN GOING ON FOR CERTAIN, BUT PT HAS NO IDEA WHEN HE LAST URINATED. DOES NOT THINK HE HAS URINATED AT ALL TODAY, AND STATES HE TOOK AN EXTRA LASIX THIS MORNING, BUT PT DENIES IT PT THINKS HE WAS HAVING DIFFICULTY URINATING YESTERDAY BUT IS NOT SURE PT'S LAST BM IS UNKNOWN PT DENIES ANY ABDOMINAL PAIN PT CLAIMS THAT HE IS NOT HAVING ANY NAUSEA OR VOMITING, AND THAT HE IS EATING NORMAL. BUT CANNOT STATE FOR CERTAIN WHEN HE LAST ATE--THINKS HE ATE BREAKFAST, AND THINKS MAYBE HE ATE A "LITTLE BRENDA'S" CAKE TODAY SOMETIME BUT IS NOT SURE IF HE DID OR NOT PT FELL TWICE TODAY, BUT DENIES PASSING OUT, AND DENIES ANY INJURIES PT C/O LEG AND FEET CRAMPING, BUT APPARENTLY THIS IS NOT A NEW PROBLEM, BUT DOES NOT KNOW HOW LONG IT HAS BEEN GOING ON PT ALSO C/O NECK AND BACK SORENESS AT TIMES , BUT NOT NOW, AND APPARENTLY THIS IS AN ONGOING PROBLEM WELL, AND IS NOT RELATED TO ANY TRAUMA PT HAS ONGOING COUGH FOR UNKNOWN LENGTH OF TIME PT HAS ONGOING SHORTNESS OF BREATH FOR UNKNOWN LENGTH OF TIME PT HAS ONGOING SWELLING IN LEGS, AND IS NO DIFFERENT TODAY NO KNOWN FEVER PT WAS SEEN BY HIS PCP, DR. SALINAS APPROXIMATELY 2 WEEKS AGO FOR COUGH AND WAS PLACED ON UNKNOWN ANTIBIOTIC, WHICH HE FINISHED AT LEAST A WEEK AGO. CANNOT STATE IF HIS COUGH IS BETTER OR NOT THINKS HE IS SHORT OF BREATH, BUT PT STATES HE DOESN'T KNOW IF HE IS OR NOT. NO CHEST PAIN PCP: DR. SALINAS Allergies and Home Medications Allergies Coded Allergies: Penicillins (Unverified Allergy, Unknown, 04/11/14) Home Medications Atorvastatin 20 Mg Tablet, 20 MG PO 1630, (Reported) Celecoxib 200 Mg Capsule, 200 MG PO 043,1630, (Reported) Cyanocobalamin (Vitamin B-12) 2,500 Mcg Tab.subl, 2,500 MCG SL 1130,1630, ( Reported) Cyclobenzaprine Hcl 10 Mg Tablet, 10 MG PO 2230,0430, (Reported) Escitalopram Oxalate 20 Mg Tablet, 20 MG PO 0430,1630, (Reported) Esomeprazole Mag Trihydrate 40 Mg Capsule.dr, 40 MG PO 0430, (Reported) Ezetimibe 10 Mg Tablet, 10 MG PO 1630, (Reported) Furosemide 40 Mg Tablet, 40 MG PO 1630, (Reported) Gabapentin 300 Mg Capsule, 600 MG PO 113,1630, (Reported) TAKES 2 (300MG) CAPSULES Gabapentin 300 Mg Capsule, 1,200 MG PO 2230, (Reported) TAKES 4 (300MG) CAPSULES Iron Polysaccharide Complex 150 Mg Capsule, 150 MG PO 429,1630, (Reported) Levomefolate/B6/B12/Algal Oil 1 Each Capsule, 1 CAP PO 1630, (Reported) Lidocaine 1 Ea Patch, 1 PATCH TOP DAILY PRN for BACK PAIN, (Reported) Lisinopril 10 Mg Tablet, 10 MG PO 2230, (Reported) Oxycodone HCl/Acetaminophen 1 Each Tablet, 2 TAB PO 0,2230, (Reported) Oxycodone Hcl 80 Mg Tab.sr.12h, 80 MG PO 429,1630, (Reported) Potassium Chloride 10 Meq Tablet.er, 10 MEQ PO 1129,2230, (Reported) Sulfamethoxazole/Trimethoprim 1 Each Tablet, 1 EACH PO BID, #14 Prescribed by: NINFA MARTIN on 03/17/17 0934 Constitutional: No chills, No diaphoresis, No fever, other (VERY LIMITED) EENTM: no symptoms reported Respiratory: see HPI, cough Cardiovascular: No chest pain, edema Gastrointestinal: see HPI Genitourinary: see HPI Musculoskeletal: see HPI Psychiatric/Neurological: Denies Headache, Denies Numbness, Denies Tingling Past Uypmuqc-Lflfmc-Drrnvs Hx Patient Social History Alcohol Use: Denies Use Recreational Drug Use: No Smoking Status: Former Smoker (QUIT 2012) Type Used: Cigarettes Former Smoker, Quit: Mar 13, 2013 Recent Foreign Travel: No Contact w/Someone Who Travel: No Recent Infectious Disease Expo: No Recent Hopitalizations: No Physical Abuse: No Sexual Abuse: No Mistreated: No Fear: No Immunizations Up To Date Tetanus Booster (TDap): Less than 5yrs Surgeries History of Surgeries: Yes (BILATERAL KNEE REPLACEMENTS WITH REVISIONS/ REPLACEMENTS AND DEBRIDEMENTS DUE TO INFECTION, NECK AND BACK SURGERY, CARDIAC CATH-NO INTERVENTION; ) Surgeries: Cardiac, Orthopedic Respiratory History of Respiratory Disorde: Yes (HX BRONCHITIS) Cardiovascular History of Cardiac Disorders: Yes (high cholesterol ) Cardiac Disorders: Chronic Edema/Swelling, High Cholesterol, Hypertension Neurological History of Neurological Disord: Yes Neurological Disorders: Neuropathy Reproductive System Hx Reproductive Disorders: No Genitourinary History of Genitourinary Disor: Yes Genitourinary Disorders: Renal Failure Gastrointestinal History of Gastrointestinal Di: Yes (DIVERTICULOSIS NOTED ON CT, BUT NO EPISODES OF DIVERTICULTITIS) Gastrointestinal Disorders: Gastroesophageal Reflux, Diverticulosis Musculoskeletal History of Musculoskeletal Dis: Yes (DJD, SEPTIC ARTIFICIAL KNEE JOINTS, CHRONIC GENERALIZED PAIN --IGOR NECK, BACK AND KNEES; FINGER/THUMB FRACTURES) Musculoskeletal Disorders: Arthritis, Chronic Back Pain Endocrine History of Endocrine Disorders: No Cancer History of Cancer: No Psychosocial History of Psychiatric Problem: Yes Behavioral Health Disorders: Depression Suicide Risk Score: 0 Integumentary History of Skin or Integumenta: No Blood Transfusions History of Blood Disorders: No Adverse Reaction to a Blood Tr: No Family Medical History Significant Family History: Heart Disease, Diabetes, Hypertension, Lung Disease Family Medial History: Cardiovascular disease 19 FATHER Hypertension G8 BROTHER Respiratory disorder 19 FATHER Physical Exam Vital Signs Vital Sign - Last 12Hours 05/23/17 19:18 Temp 98.1 Pulse 80 Resp 20 B/P (MAP) 104/78 Pulse Ox 92 O2 Delivery Room Air Capillary Refill : Less Than 3 Seconds General Appearance: No Apparent Distress, WD/WN, Obese HEENT: PERRL/EOMI Neck: Normal Inspection Respiratory: Normal Breath Sounds, No Accessory Muscle Use, No Respiratory Distress Cardiovascular: Regular Rate, Rhythm, No JVD, No Murmur, Normal Peripheral Pulses Gastrointestinal: Normal Bowel Sounds, No Organomegaly, No Pulsatile Mass, Non Tender, Soft Back: No CVA Tenderness Extremity: Normal Capillary Refill, Normal Range of Motion, Non Tender, No Calf Tenderness, Pedal Edema (TRACE TO 1+ BILATERALLY) Neurologic/Psychiatric: Alert, Oriented x3 (BUT POOR MEMORY), No Motor/Sensory Deficits, social work faculty member II-XII Norm as Tested, Other (FLAT AFFECT) Skin: Normal Color, Warm/Dry, No Rash, Other (MILD CHRONIC VENOUS STASIS CHANGES BILATERALLY--LEFT> RIGHT) Progress/Results/Core Measures Results/Orders Lab Results Laboratory Tests Test 05/23/17 19:44 05/23/17 20:07 Range/Units White Blood Count 9.6 4.3-11.0 10^3/uL Red Blood Count 3.49 L 4.35-5.85 10^6/uL Hemoglobin 11.2 L 13.3-17.7 G/DL Hematocrit 34 L 40-54 % Mean Corpuscular Volume 96 80-99 FL Mean Corpuscular Hemoglobin 32 25-34 PG Mean Corpuscular Hemoglobin Concent 33 32-36 G/DL Red Cell Distribution Width 12.9 10.0-14.5 % Platelet Count 240 130-400 10^3/uL Mean Platelet Volume 8.7 7.4-10.4 FL Neutrophils (%) (Auto) 58 42-75 % Lymphocytes (%) (Auto) 26 12-44 % Monocytes (%) (Auto) 9 0-12 % Eosinophils (%) (Auto) 7 0-10 % Basophils (%) (Auto) 1 0-10 % Neutrophils # (Auto) 5.5 1.8-7.8 X 10^3 Lymphocytes # (Auto) 2.5 1.0-4.0 X 10^3 Monocytes # (Auto) 0.9 0.0-1.0 X 10^3 Eosinophils # (Auto) 0.6 H 0.0-0.3 10^3/uL Basophils # (Auto) 0.1 0.0-0.1 10^3/uL Prothrombin Time 12.0 L 12.2-14.7 SEC INR Comment 0.9 0.8-1.4 Activated Partial Thromboplast Time 32 24-35 SEC Sodium Level 128 L 135-145 MMOL/L Potassium Level 5.2 H 3.6-5.0 MMOL/L Chloride Level 94 L 98-107 MMOL/L Carbon Dioxide Level 22 21-32 MMOL/L Anion Gap 12 5-14 MMOL/L Blood Urea Nitrogen 45 H 7-18 MG/DL Creatinine 2.71 H 0.60-1.30 MG/DL Estimat Glomerular Filtration Rate 24 BUN/Creatinine Ratio 17 Glucose Level 99 70-105 MG/DL Calcium Level 8.8 8.5-10.1 MG/DL Total Bilirubin 0.5 0.1-1.0 MG/DL Aspartate Amino Transf (AST/SGOT) 78 H 5-34 U/L Alanine Aminotransferase (ALT/SGPT) 40 0-55 U/L Alkaline Phosphatase 81 40-136 U/L Troponin I < 0.30 <0.30 NG/ML Total Protein 7.5 6.4-8.2 GM/DL Albumin 4.3 3.2-4.5 GM/DL Amylase Level 45 25-125 U/L Lipase 37 8-78 U/L Urine Color YELLOW Urine Clarity CLEAR Urine pH 5 5-9 Urine Specific Whiteface 1.020 1.016-1.022 Urine Protein NEGATIVE NEGATIVE Urine Glucose (UA) NEGATIVE NEGATIVE Urine Ketones NEGATIVE NEGATIVE Urine Nitrite NEGATIVE NEGATIVE Urine Bilirubin NEGATIVE NEGATIVE Urine Urobilinogen NORMAL NORMAL MG/DL Urine Leukocyte Esterase NEGATIVE NEGATIVE Urine RBC (Auto) NEGATIVE NEGATIVE Urine RBC NONE /HPF Urine WBC NONE /HPF Urine Squamous Epithelial Cells RARE /HPF Urine Crystals NONE /LPF Urine Bacteria NONE /HPF Urine Casts NONE /LPF Urine Mucus NEGATIVE /LPF Urine Culture Indicated NO My Orders Orders - SHAINA DAVID DO Saline Lock/Iv-Start (05/23/17 19:33) Bladder Scan (05/23/17 19:33) Monitor-Rhythm Ecg Trace Only (05/23/17 19:33) Amylase (05/23/17 19:33) Cbc With Automated Diff (05/23/17 19:33) Comprehensive Metabolic Panel (05/23/17 19:33) Lipase (05/23/17 19:33) Protime With Inr (05/23/17 19:33) Partial Thromboplastin Time (05/23/17 19:33) Troponin I (05/23/17 19:33) Ua Culture If Indicated (05/23/17 19:33) Saline Lock/Iv-Start (05/23/17 19:45) Ns Iv 1000 Ml (Sodium Chloride 0.9%) (05/23/17 19:45) Ns Iv 1000 Ml (Sodium Chloride 0.9%) (05/23/17 20:28) Ct Chest/Abdomen/Pelvis Wo (05/23/17 20:28) Saline Lock/Iv-Start (05/23/17 20:28) Medications Given in ED Current Medications Medications Dose Ordered Sig/Marcio Route Start Time Stop Time Status Last Admin Dose Admin Sodium Chloride 1,000 ml @ 0 mls/hr Q0M ONCE IV 05/23/17 19:45 05/23/17 19:46 DC 05/23/17 20:25 1,000 MLS/HR Sodium Chloride 1,000 ml @ 0 mls/hr Q0M ONCE IV 05/23/17 20:28 05/23/17 22:11 DC 05/23/17 21:36 1,000 MLS/HR Vital Signs/I&O Vital Sign - Last 12Hours 05/23/17 19:18 Temp 98.1 Pulse 80 Resp 20 B/P (MAP) 104/78 Pulse Ox 92 O2 Delivery Room Air Intake and Output 05/24/17 00:00 Intake Total 1000 ml Balance 1000 ml Blood Pressure Mean: 87 Progress Note : Progress Note BLADDER SCAN SHOWED ONLY 4 ML OF URINE, BUT THEN PT WAS ABLE TO VOID ON HIS OWN AND HAD SLIGHTLY LESS THAN 50 ML OUT, PRIOR TO INITIATION OF FLUID BOLUS--PT STATES HE TOOK A LASIX JUST PRIOR TO ARRIVAL NO DETERIORATION IN PT'S CONDITION DURING ER STAY + ORTHOSTATICS Diagnostic Imaging Comments CT CHEST/ABDOMEN/PELVIS--NO ACUTE PROCESS, MILD CONSTIPATION. MILDLY ENLARGED BILATERAL INGUINAL LYMPH NODES. PER RADIOLOGIST REPORT @ 2111 Reviewed: Reviewed by Me Departure Communication (Admissions) Progress Notes 2113--SPOKE WITH DR. PRINCE, HOSPITALIST, ACCEPTS PT FOR ADMIT. Impression Impression: Primary Impression: Acute renal failure Additional Impressions: Dehydration Electrolyte imbalance Disposition: ADMITTED INPATIENT Condition: Stable Admissions Decision to Admit Reason: Admit from ER (General) Decision to Admit/Date: May 23, 2017 Time/Decision to Admit Time: 21:15 Departure-Patient Inst. Referrals: JAVIER SALINAS MD (PCP/Family) Primary Care Physician SHAINA DAVID DO May 23, 2017 21:40
[2017-05-23] MEDS: NS IV 1000 ML 1,000 ML IV SCH (22:30)
[2017-05-24] VITALS (8 sets, daily range): BP systolic 101–137; BP diastolic 58–68
[2017-05-24] MEDS: NS IV 1000 ML 1,000 ML IV SCH ×3 (05:39→18:48)
[2017-05-24 06:53] LABS: BASOPHILS % (AUTO) 0 % (0-10); EOSINOPHILS # (AUTO) 0.5 10^3/uL (0.0-0.3); EOSINOPHILS % (AUTO) 7 % (0-10); LYMPHOCYTES # (AUTO) 1.9 X 10^3 (1.0-4.0); LYMPHOCYTES % (AUTO) 26 % (12-44); MEAN CORPUSCULAR HEMOGLOBIN 33 PG (25-34); MEAN CORPUSCULAR HGB CONC 33 G/DL (32-36); MEAN CORPUSCULAR VOLUME 98 FL (80-99); MEAN PLATELET VOLUME 9.1 FL (7.4-10.4); MONOCYTES # (AUTO) 0.9 X 10^3 (0.0-1.0); MONOCYTES % (AUTO) 13 % (0-12); NEUTROPHILS # (AUTO) 3.9 X 10^3 (1.8-7.8); NEUTROPHILS % (AUTO) 54 % (42-75); PLATELET COUNT 214 10^3/uL (130-400); RED BLOOD COUNT 3.14 10^6/uL (4.35-5.85); RED CELL DISTRIBUTION WIDTH 13.1 % (10.0-14.5); WHITE BLOOD COUNT 7.3 10^3/uL (4.3-11.0)
[2017-05-24 07:05] LABS: ALBUMIN 3.8 GM/DL (3.2-4.5); BILIRUBIN,TOTAL 0.4 MG/DL (0.1-1.0); CALCIUM 8.5 MG/DL (8.5-10.1); CREATININE SERUM 2.5 MG/DL (0.60-1.30); POTASSIUM 4.7 MMOL/L (3.6-5.0); TOTAL PROTEIN 6.8 GM/DL (6.4-8.2)
[2017-05-24] MEDS ORDERED: INFLUENZA TRIvalent 2017-2018 0.5 ML/45 MCG SYR IM ONE (07:45)
--- NOTE | 2017-05-24 11:56 | History & Physical-Hospitalist ---
HPI History of Present Illness: HPI/Chief Complaint Pt is a 61yoCM with pmh of HTN, HLD, and chronic pain who presented to the ER after a fall with complaints of decreased urine output. He states that he has had constipation for 2 days and then did not have any urine output yesterday and felt poorly so presented to the ER. His states that he fell yesterday and bruised his back. Otherwise two days ago he was doing well. He reports minimal PO intake and is rickey to drink 20z of fluid a day. He also takes Lasix daily. His only other complaint is poor sleep. He otherwise has been eating well , tolerating PO intake, no diarrhea, no fevers. Source: patient, family Date Seen 05/24/17 Time Seen by Provider: 09:30 Attending Physician Sia Prince MD PCP Dutch Bergman MD Referring Physician Date of Admission May 23, 2017 at 21:15 Home Medications & Allergies Home Medications Reviewed patient Home Medication Reconciliation Form Allergies Allergies Coded Allergies Penicillins (Unverified Allergy, Unknown, 04/11/14) Past Huhqiow-Kufday-Ubbsxc Hx Patient Social History Marrital Status: Alcohol Use: Denies Use Recreational Drug Use: No Smoking Status: Former Smoker (QUIT 2012) Former Smoker, Quit: Mar 13, 2013 Type Used: Cigarettes Physical Abuse Screen: No Sexual Abuse: No Recent Foreign Travel: No Contact w/other who traveled: No Recent Hopitalizations: No Recent Infectious Disease Expo: No Immunizations Up To Date Tetanus Booster (TDap): Less than 5yrs Seasonal Allergies Seasonal Allergies: No Surgeries Yes (BILATERAL KNEE REPLACEMENTS WITH REVISIONS/REPLACEMENTS AND DEBRIDEMENTS DUE TO INFECTION, NECK AND BACK SURGERY, CARDIAC CATH-NO INTERVENTION; ) Cardiac, Orthopedic Respiratory Yes (HX BRONCHITIS) Cardiovascular Yes High Cholesterol, Hypertension Neurological Yes Neuropathy Reproductive System Hx Reproductive Disorders: No Genitourinary Yes Renal Failure Gastrointestinal Yes (DIVERTICULOSIS NOTED ON CT, BUT NO EPISODES OF DIVERTICULTITIS) Gastroesophageal Reflux, Diverticulosis Musculoskeletal Yes (DJD, SEPTIC ARTIFICIAL KNEE JOINTS, CHRONIC GENERALIZED PAIN --IGOR NECK, BACK AND KNEES; FINGER/THUMB FRACTURES) Arthritis, Chronic Back Pain Endocrine History of Endocrine Disorders: No HEENT History of HEENT Disorders: No Cancer No Psychosocial History of Psychiatric Problem: Yes Behavioral Health Disorders: Depression Integumentary History of Skin or Integumenta: No Blood Transfusions History of Blood Disorders: No Adverse Reaction to a Blood Tr: No Family Medical History Significant Family History: Heart Disease, Diabetes, Hypertension, Lung Disease Family Hx: Cardiovascular disease 19 FATHER Hypertension G8 BROTHER Respiratory disorder 19 FATHER Review of Systems Constitutional: No chills, No fever EENTM: No blurred vision, No double vision, No nose congestion, No throat pain Respiratory: No cough, No dyspnea on exertion, No short of breath Cardiovascular: No chest pain, edema (chronic), No palpitations Gastrointestinal: No abdominal pain, constipation, No diarrhea, No loss of appetite, No nausea, No vomiting Genitourinary: decreased output, No dysuria, No frequency, No hematuria, No hesitancy Musculoskeletal: back pain, joint pain Skin: No lesions, No rash Psychiatric/Neurological: Denies Headache, Denies Numbness, Denies Tingling Physical Exam Physical Exam Vital Signs Vital Sign - Last 12Hours 05/23/17 05/24/17 19:18 04:57 Temp 98.1 Pulse 80 Resp 20 B/P (MAP) 104/78 Pulse Ox 92 O2 Delivery Room Air O2 Flow Rate 2.00 Capillary Refill : Less Than 3 Seconds General Appearance: No Apparent Distress, Obese HEENT: PERRL/EOMI, Moist Mucous Membranes Neck: Non Tender, Supple Respiratory: Lungs Clear, No Respiratory Distress Cardiovascular: Regular Rate, Rhythm, No Murmur Gastrointestinal: Normal Bowel Sounds, Non Tender, Soft Back: No CVA Tenderness, Other (ecchymosis on lower back) Extremity: Normal Capillary Refill, No Calf Tenderness, No Pedal Edema Neurologic/Psychiatric: Alert, Oriented x3, Normal Mood/Affect Skin: Normal Color, Warm/Dry Results Results/Procedures Lab Laboratory Tests 05/23/17 19:44 05/24/17 06:00 Radiology PROCEDURE: CT chest, abdomen and pelvis without contrast. IMPRESSION: 1. Finding consistent with mild constipation. No acute findings of the bowel. 2. Bladder and prostate appear normal. 3. Atherosclerotic change of the aorta. 4. Multiple mildly enlarged lymph nodes noted within the groin, bilaterally. Assessment/Plan Admission Diagnosis acute renal failure Diagnosis/Problems Diagnosis/Problems (1) Acute renal failure Status: Acute Assessment & Plan: baseline 1.2 Likely prerenal from poor PO intake and daily Lasix 2.7 on admission, improved to 2.5 this am continue IVF hold lasix, lisinopril, NSAIDs Qualifiers: Qualified Codes: N17.9 - Acute kidney failure, unspecified (2) Hyponatremia Status: Acute Assessment & Plan: hypovolemic hyponatremic IVF,slowly improving (3) Essential (primary) hypertension Status: Chronic Assessment & Plan: On lisinopril at home Holding for ARNAUD and hypotension (4) Chronic back pain Assessment & Plan: long history of back pain s/p back surgeries On chronic narcotics, will continue Will resume gabapentin as well Qualifiers: Qualified Codes: M54.5 - Low back pain; G89.29 - Other chronic pain (5) Normocytic anemia Status: Chronic Assessment & Plan: Mild, trend (6) Transaminitis Status: Acute Assessment & Plan: likely from dehydration mild, trend (7) Hyperkalemia Status: Resolved Assessment & Plan: resolved with fluids hold home K (8) Prophylactic measure Assessment & Plan: Lovenox HH diet NS at 150ml/hr Clinical Quality Measures DVT/VTE Risk/Contraindication: Risk Factor Score Per Nursin RFS Level Per Nursing on Admit: 3=High SIA PRINCE MD May 24, 2017 11:56
[2017-05-24] MEDS: GABAPENTIN 300 MG (NEURONTIN) CAP PO SCH ×3 (12:08→21:37)
[2017-05-24] MEDS ORDERED: eZETimibe 10 MG (ZETIA) TABLET PO SCH (16:30)
[2017-05-24] MEDS ORDERED: ATORVASTATIN 20 MG (LIPITOR) TABLET PO SCH (16:30)
[2017-05-24] MEDS ORDERED: FOLIC ACID 1 MG TAB PO SCH (16:30)
[2017-05-24] MEDS: IRON POLYSAC 150 MG CAP (NIFEREX) PO SCH (17:04)
[2017-05-24] MEDS: oxyCODONE ER 40 MG (oxyCONTIN CR) TAB PO SCH (17:04)
[2017-05-24] MEDS: CYCLOBENZAPRINE 10 MG (FLEXERIL) TAB PO SCH (21:36)
[2017-05-24] MEDS ORDERED: oxyCODONE/APAP 10/325MG (PERCOCET 10) TABLET PO SCH (22:30)
[2017-05-25] MEDS: NS IV 1000 ML 1,000 ML IV SCH ×2 (00:30→09:31)
[2017-05-25 00:38] VITALS: BP 138/90
[2017-05-25 04:00] VITALS: BP 133/84
[2017-05-25] MEDS: oxyCODONE ER 40 MG (oxyCONTIN CR) TAB PO SCH (04:29)
[2017-05-25] MEDS: IRON POLYSAC 150 MG CAP (NIFEREX) PO SCH (04:29)
[2017-05-25] MEDS: CYCLOBENZAPRINE 10 MG (FLEXERIL) TAB PO SCH (04:29)
[2017-05-25] MEDS ORDERED: PANTOPRAZOLE 40 MG (PROTONIX) TAB PO SCH (04:30)
[2017-05-25 06:24] LABS: BASOPHILS % (AUTO) 1 % (0-10); EOSINOPHILS # (AUTO) 0.4 10^3/uL (0.0-0.3); EOSINOPHILS % (AUTO) 6 % (0-10); LYMPHOCYTES # (AUTO) 1.8 X 10^3 (1.0-4.0); LYMPHOCYTES % (AUTO) 27 % (12-44); MEAN CORPUSCULAR HEMOGLOBIN 32 PG (25-34); MEAN CORPUSCULAR HGB CONC 33 G/DL (32-36); MEAN CORPUSCULAR VOLUME 98 FL (80-99); MEAN PLATELET VOLUME 8.9 FL (7.4-10.4); MONOCYTES # (AUTO) 0.8 X 10^3 (0.0-1.0); MONOCYTES % (AUTO) 12 % (0-12); NEUTROPHILS # (AUTO) 3.6 X 10^3 (1.8-7.8); NEUTROPHILS % (AUTO) 55 % (42-75); PLATELET COUNT 223 10^3/uL (130-400); RED BLOOD COUNT 3.19 10^6/uL (4.35-5.85); RED CELL DISTRIBUTION WIDTH 13.2 % (10.0-14.5); WHITE BLOOD COUNT 6.6 10^3/uL (4.3-11.0)
[2017-05-25 06:45] LABS: ALBUMIN 3.8 GM/DL (3.2-4.5); BILIRUBIN,TOTAL 0.3 MG/DL (0.1-1.0); CALCIUM 8.6 MG/DL (8.5-10.1); CREATININE SERUM 1.43 MG/DL (0.60-1.30); POTASSIUM 4.9 MMOL/L (3.6-5.0); TOTAL PROTEIN 6.8 GM/DL (6.4-8.2)
[2017-05-25 08:00] VITALS: BP 161/71
[2017-05-25] MEDS ORDERED: INFLUENZA TRIvalent 2017-2018 0.5 ML/45 MCG SYR IM ONE (08:53)
[2017-05-25] MEDS: GABAPENTIN 300 MG (NEURONTIN) CAP PO SCH (09:10)
--- NOTE | 2017-05-25 09:47 | Discharge Summary-Hospitalist ---
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 to 1.4 today s/p IVF held lasix, lisinopril, NSAIDs (2) Hyponatremia Status: Resolved Assessment & Plan: hypovolemic hyponatremic resolved with IVF (3) Essential (primary) hypertension Status: Chronic Assessment & Plan: On lisinopril at home Held for ARNAUD and hypotension (4) Chronic back pain Assessment & Plan: long history of back pain s/p back surgeries On chronic narcotics, will continue Will resume gabapentin as well (5) Normocytic anemia Status: Chronic Assessment & Plan: Mild, trend Needs colonoscopy if not already done (6) Transaminitis Status: Acute Assessment & Plan: likely from dehydration mild, trend Improving (7) Hyperkalemia Status: Resolved Assessment & Plan: resolved with fluids Will DC as now off Lasix (8) Prophylactic measure Assessment & Plan: Lovenox HH diet Discharge Summary Discharge Physical Examination Allergies: Coded Allergies: Penicillins (Unverified Allergy, Unknown, 04/11/14) Vitals & I&Os Vital Signs Date Time Temp Pulse Resp B/P (MAP) Pulse Ox O2 Delivery O2 Flow Rate FiO2 05/25/17 08:00 98.2 78 18 161/71 92 Nasal Cannula 2.00 Hospital Course Pt is a 61yoCM with a PMH of tobaccoism, chronic back pain, and HTN who presented to the ER with CC of decreased UOP. He was found to have an ARNAUD (Packaging Line Attendant 2.7) and was admitted for management. He was fluid resuscitated and Packaging Line Attendant improved to baseline (1.4). History relieved he takes Lasix daily to help him urinate and drinks very little and multiple cups of coffee. I reviewed cardiology notes and there appears to be no evidence of heart failure so Lasix was discontinued. I also advised discontinuing Celebrex for now until follow up with PCP. I resumed his Lisinopril, recommended increase water intake and decreasing coffee consumption to 1-2 cups/day. Labs (last 24 hrs) Laboratory Tests 05/25/17 06:05: White Blood Count 6.6, Red Blood Count 3.19L, Hemoglobin 10.2L, Hematocrit 31L, Mean Corpuscular Volume 98, Mean Corpuscular Hemoglobin 32, Mean Corpuscular Hemoglobin Concent 33, Red Cell Distribution Width 13.2, Platelet Count 223, Mean Platelet Volume 8.9, Neutrophils (%) (Auto) 55, Lymphocytes (%) (Auto) 27, Monocytes (%) (Auto) 12, Eosinophils (%) (Auto) 6, Basophils (%) (Auto) 1, Neutrophils # (Auto) 3.6, Lymphocytes # (Auto) 1.8, Monocytes # (Auto) 0.8, Eosinophils # (Auto) 0.4H, Basophils # (Auto) 0.0, Sodium Level 136, Potassium Level 4.9, Chloride Level 106, Carbon Dioxide Level 24, Anion Gap 6, Blood Urea Nitrogen 25H, Creatinine 1.43H, Estimat Glomerular Filtration Rate 50, BUN/ Creatinine Ratio 17, Glucose Level 99, Calcium Level 8.6, Total Bilirubin 0.3, Aspartate Amino Transf (AST/SGOT) 44H, Alanine Aminotransferase (ALT/SGPT) 34, Alkaline Phosphatase 77, Total Protein 6.8, Albumin 3.8 Pending Labs Laboratory Tests 05/25/17 06:05: White Blood Count 6.6, Red Blood Count 3.19, Hemoglobin 10.2, Hematocrit 31, Mean Corpuscular Volume 98, Mean Corpuscular Hemoglobin 32, Mean Corpuscular Hemoglobin Concent 33, Red Cell Distribution Width 13.2, Platelet Count 223, Mean Platelet Volume 8.9, Neutrophils (%) (Auto) 55, Lymphocytes (%) (Auto) 27, Monocytes (%) (Auto) 12, Eosinophils (%) (Auto) 6, Basophils (%) (Auto) 1, Neutrophils # (Auto) 3.6, Lymphocytes # (Auto) 1.8, Monocytes # (Auto) 0.8, Eosinophils # (Auto) 0.4, Basophils # (Auto) 0.0, Sodium Level 136, Potassium Level 4.9, Chloride Level 106, Carbon Dioxide Level 24, Anion Gap 6, Blood Urea Nitrogen 25, Creatinine 1.43, Estimat Glomerular Filtration Rate 50, BUN/ Creatinine Ratio 17, Glucose Level 99, Calcium Level 8.6, Total Bilirubin 0.3, Aspartate Amino Transf (AST/SGOT) 44, Alanine Aminotransferase (ALT/SGPT) 34, Alkaline Phosphatase 77, Total Protein 6.8, Albumin 3.[address] CHEST/ABDOMEN/PELVIS WO PROCEDURE: CT chest, abdomen and pelvis without contrast. INDICATION: Abdominal pain, trouble urinating. FINDINGS: CT CHEST: Noncontrasted images show obstructive interstitial lung disease. There are no acute infiltrates. No masses. No mediastinal or hilar adenopathy of pathologic size. No bony lesion. IMPRESSION: Obstructive interstitial lung disease. CT ABDOMEN/PELVIS: Noncontrasted images show hepatomegaly with some fatty change. Gallbladder and bile ducts are normal. The pancreas and spleen are normal. Adrenal glands are normal. Kidneys appear normal. Aorta is atherosclerotic without aneurysm. Stomach and small bowel are not distended. There is a moderate amount of stool present throughout the colon. The appendix is visualized and normal. There is no evidence of diverticulitis with multiple diverticula in the sigmoid colon. Bladder is normal. The prostate is not enlarged. There are bilateral inguinal lymph nodes measuring upwards of 1.5 cm. Fusion of the lumbosacral spine is noted. No blastic or lytic bony lesions are demonstrated. IMPRESSION: 1. Finding consistent with mild constipation. No acute findings of the bowel. 2. Bladder and prostate appear normal. 3. Atherosclerotic change of the aorta. 4. Multiple mildly enlarged lymph nodes noted within the groin, bilaterally. Discharge Home Medications: Active Scripts Active Bactrim Ds Tablet (Sulfamethoxazole/Trimethoprim) 1 Each Tablet 1 Each PO BID Reported Percocet 10-325 mg Tablet (Oxycodone HCl/Acetaminophen) 1 Each Tablet 2 Tab PO 1130,2230 Vitamin B-12 (Cyanocobalamin (Vitamin B-12)) 2,500 Mcg Tab.subl 2,500 Mcg SL 1129,1630 Gabapentin 300 Mg Capsule 1,200 Mg PO 2230 TAKES 4 (300MG) CAPSULES Poly-Iron (Iron Polysaccharide Complex) 150 Mg Capsule 150 Mg PO 043,1630 Foltanx Rf Capsule (Levomefolate/B6/B12/Algal Oil) 1 Each Capsule 1 Cap PO 1630 Ezetimibe 10 Mg Tablet 10 Mg PO 1630 Celecoxib 200 Mg Capsule 200 Mg PO 429,1630 Potassium Chloride 10 Meq Tablet.er 10 Meq PO 1130,2230 Lisinopril 10 Mg Tablet 10 Mg PO 2230 Gabapentin 300 Mg Capsule 600 Mg PO 1130,1630 TAKES 2 (300MG) CAPSULES Lipitor Tablet (Atorvastatin) 20 Mg Tablet 20 Mg PO 1630 Furosemide 40 Mg Tablet 40 Mg PO 1630 Cyclobenzaprine Hcl (Cyclobenzaprine HCl) 10 Mg Tablet 10 Mg PO 2230,0430 Lidoderm 5% Patch (Lidocaine) 1 Ea Patch 1 Patch TOP DAILY PRN Lexapro (Escitalopram Oxalate) 20 Mg Tablet 20 Mg PO 0430,1630 Nexium (Esomeprazole Magnesium) 40 Mg Capsule.dr 40 Mg PO 0430 Oxycontin (Oxycodone Hcl) 80 Mg Tab.sr.12h 80 Mg PO 043,1630 Instructions to patient/family Please see electronic discharge instructions given to patient. Clinical Quality Measures DVT/VTE Risk/Contraindication: Risk Factor Score Per Nursin RFS Level Per Nursing on Admit: 3=High Copy Copies To 1: sanjuana lobo Problem Qualifiers (1) Acute renal failure: Acute renal failure type: unspecified Qualified Codes: N17.9 - Acute kidney failure, unspecified (2) Chronic back pain: Back pain location: low back pain Back pain laterality: bilateral Sciatica presence: unspecified whether sciatica present Qualified Codes: M54.5 - Low back pain; G89.29 - Other chronic pain SIA PRINCE MD May 25, 2017 9:47 am
== END 2017-05-25 10:30 | disposition home or self-care (01) | DRG 683 ==
LOC: EDUNIT# 19:03 → ER 19:06 → 4TH 21:15
PROVIDERS: ADMIT Family Medicine; ATTEND Family Medicine
DX: N17.9 Acute kidney failure, unspecified (principal); E87.1 Hypo-osmolality and hyponatremia; I10 Essential (primary) hypertension; M54.5 Low back pain; D64.9 Anemia, unspecified; G89.29 Other chronic pain; R74.0 Nonspecific elevation of levels of transaminase and lactic acid dehydrogenase [LDH]; E86.0 Dehydration; E86.1 Hypovolemia; E87.5 Hyperkalemia; F32.9 Major depressive disorder, single episode, unspecified; K21.9 Gastro-esophageal reflux disease without esophagitis; E78.00 Pure hypercholesterolemia, unspecified; Z96.651 Presence of right artificial knee joint; Z96.652 Presence of left artificial knee joint; Z87.891 Personal history of nicotine dependence; Z91.81 History of falling; Z23 Encounter for immunization
CPT/HCPCS: 36415; 71250; 74176; 80053; 81000; 82150; 83690; 84484; 85025; 85610; 85730

== ENCOUNTER → 2017-08-13 | Outpatient (CLI) | payer BC, MEDICARE ==
[~2017-08-13] MED LIST changes: +ASPI-983 PO; +CEFD300C3 PO; +CYAN100T PO; +ESCI20TA45 PO; +ESOM40CA52 PO; +FOLI100T PO; +IPRA3AMP NEB; +LIDO700A45 TD; +OSLT75C PO; +OXYC-465 PO; +OXYC80TA35 PO; +POTA10TA17 PO; +RT-ALBUINH INH
== END ==
LOC: LAB 15:55
PROVIDERS: ATTEND Internal Medicine Cardiovascular Disease
DX: R06.02 Shortness of breath (principal); I12.9 Hypertensive chronic kidney disease with stage 1 through stage 4 chronic kidney disease, or unspecified chronic kidney disease; N18.3 Chronic kidney disease, stage 3 (moderate); J43.8 Other emphysema; E66.8 Other obesity; R25.2 Cramp and spasm; F17.221 Nicotine dependence, chewing tobacco, in remission
CPT/HCPCS: 36415; 83735

== ENCOUNTER → 2017-08-22 | Outpatient (CLI) | payer BC, MEDICARE ==
[2017-08-22 16:19] LABS: BASOPHILS # (AUTO) 0.1 10^3/uL (0.0-0.1); BASOPHILS % (AUTO) 1 % (0-10); EOSINOPHILS # (AUTO) 0.5 10^3/uL (0.0-0.3); EOSINOPHILS % (AUTO) 10 % (0-10); HEMATOCRIT 34 % (40-54); HEMOGLOBIN 11.5 G/DL (13.3-17.7); LYMPHOCYTES # (AUTO) 1.6 X 10^3 (1.0-4.0); LYMPHOCYTES % (AUTO) 29 % (12-44); MEAN CORPUSCULAR HEMOGLOBIN 32 PG (25-34); MEAN CORPUSCULAR HGB CONC 34 G/DL (32-36); MEAN CORPUSCULAR VOLUME 96 FL (80-99); MEAN PLATELET VOLUME 8.3 FL (7.4-10.4); MONOCYTES # (AUTO) 0.5 X 10^3 (0.0-1.0); MONOCYTES % (AUTO) 9 % (0-12); NEUTROPHILS # (AUTO) 2.8 X 10^3 (1.8-7.8); NEUTROPHILS % (AUTO) 51 % (42-75); PLATELET COUNT 252 10^3/uL (130-400); RED BLOOD COUNT 3.57 10^6/uL (4.35-5.85); RED CELL DISTRIBUTION WIDTH 12.6 % (10.0-14.5); WHITE BLOOD COUNT 5.5 10^3/uL (4.3-11.0)
[2017-08-22 16:40] LABS: CALCIUM 9.3 MG/DL (8.5-10.1); CREATININE SERUM 1.39 MG/DL (0.60-1.30); POTASSIUM 4.6 MMOL/L (3.6-5.0)
== END ==
LOC: LAB 16:00
PROVIDERS: ATTEND Internal Medicine Cardiovascular Disease
DX: I12.9 Hypertensive chronic kidney disease with stage 1 through stage 4 chronic kidney disease, or unspecified chronic kidney disease (principal); R06.02 Shortness of breath; J43.8 Other emphysema; E66.8 Other obesity; F17.221 Nicotine dependence, chewing tobacco, in remission; N18.3 Chronic kidney disease, stage 3 (moderate); R25.2 Cramp and spasm
CPT/HCPCS: 36415; 80048; 85025

== ENCOUNTER → 2017-10-30 | Outpatient (CLI) | payer BC, MEDICARE ==
--- NOTE | 2017-10-30 17:48 | Diagnostic Imaging Report ---
INDICATION: Tobacco use. COPD. COMPARISON: 07/24/2017 FINDINGS: Two views of the chest are obtained. Heart size is normal. The pulmonary vessels appear unremarkable. There is no pneumothorax, mediastinal widening or pleural fluid. There is eventration of the right hemidiaphragm which is unchanged. Lung volumes are fairly low. Lungs are otherwise clear. Osseous structures appear unremarkable. IMPRESSION: No acute abnormality is demonstrated. No significant interval change from the prior study. Dictated by: Dictated on workstation # [id number]
== END ==
LOC: RAD 15:31
PROVIDERS: ATTEND Nurse Practitioner Family
DX: J44.9 Chronic obstructive pulmonary disease, unspecified (principal); J98.4 Other disorders of lung; F17.201 Nicotine dependence, unspecified, in remission
CPT/HCPCS: 71046

== ENCOUNTER → 2018-01-07 | Outpatient (CLI) | payer BC, MEDICARE ==
[2018-01-07 16:21] LABS: BASOPHILS # (AUTO) 0.1 10^3/uL (0.0-0.1); BASOPHILS % (AUTO) 1 % (0-10); EOSINOPHILS # (AUTO) 0.4 10^3/uL (0.0-0.3); EOSINOPHILS % (AUTO) 7 % (0-10); HEMATOCRIT 32 % (40-54); HEMOGLOBIN 10.1 G/DL (13.3-17.7); LYMPHOCYTES # (AUTO) 1.6 X 10^3 (1.0-4.0); LYMPHOCYTES % (AUTO) 25 % (12-44); MEAN CORPUSCULAR HEMOGLOBIN 31 PG (25-34); MEAN CORPUSCULAR HGB CONC 32 G/DL (32-36); MEAN CORPUSCULAR VOLUME 97 FL (80-99); MONOCYTES # (AUTO) 0.5 X 10^3 (0.0-1.0); MONOCYTES % (AUTO) 7 % (0-12); NEUTROPHILS # (AUTO) 3.7 X 10^3 (1.8-7.8); NEUTROPHILS % (AUTO) 60 % (42-75); PLATELET COUNT 245 10^3/uL (130-400); RED BLOOD COUNT 3.28 10^6/uL (4.35-5.85); RED CELL DISTRIBUTION WIDTH 12.9 % (10.0-14.5); WHITE BLOOD COUNT 6.2 10^3/uL (4.3-11.0)
[2018-01-07 16:45] LABS: ALBUMIN 4.1 GM/DL (3.2-4.5); BILIRUBIN,TOTAL 0.3 MG/DL (0.1-1.0); CALCIUM 9.1 MG/DL (8.5-10.1); CREATININE SERUM 1.85 MG/DL (0.60-1.30); POTASSIUM 5.1 MMOL/L (3.6-5.0); TOTAL PROTEIN 7.5 GM/DL (6.4-8.2)
== END ==
LOC: RAD 16:05
PROVIDERS: ATTEND Nurse Practitioner Family
DX: Z53.8 Procedure and treatment not carried out for other reasons (principal); G25.81 Restless legs syndrome; J98.4 Other disorders of lung; J96.20 Acute and chronic respiratory failure, unspecified whether with hypoxia or hypercapnia; J44.9 Chronic obstructive pulmonary disease, unspecified; F17.201 Nicotine dependence, unspecified, in remission; M79.89 Other specified soft tissue disorders
CPT/HCPCS: 36415; 80053; 85025

== ENCOUNTER → 2018-01-08 | Outpatient (CLI) | payer BC, MEDICARE ==
--- NOTE | 2018-01-08 16:45 | Diagnostic Imaging Report ---
INDICATION: Difficulty breathing. TIME OF EXAM: 3:08 PM Correlation is made with prior study from 10/30/2017. FINDINGS: Heart size is stable. There is chronic elevation of the right hemidiaphragm. No infiltrate or failure is detected. No effusion or pneumothorax is seen. There are postop changes in the lower cervical spine. IMPRESSION: Stable chest. No acute feature is detected. Dictated by: Dictated on workstation # [id number]
--- NOTE | 2018-01-08 19:11 | Diagnostic Imaging Report ---
INDICATION: COPD and acute on chronic respiratory failure. TECHNIQUE: The patient was administered 40 mCi of technetium-99m aerosolized DTPA put in nebulizer with 1 mCi going to the patient, and imaging over the chest was performed. In addition, patient was administered 5.4 mCi technetium-99m MAA intravenously, and imaging over the chest was performed. COMPARISON: Comparison is made with chest radiograph performed the same day. FINDINGS: Both the ventilation and perfusion portions of the study demonstrate fairly homogeneous distribution of radiotracer throughout both lungs. There is normal clumping of the DTPA centrally. No pleural-based perfusion defects are seen. There is some elevation of the right hemidiaphragm. IMPRESSION: Findings consistent with low probability for pulmonary embolism. Dictated by: Dictated on workstation # [id number]
== END ==
LOC: CARD 13:22
PROVIDERS: ATTEND Nurse Practitioner Family
DX: J96.20 Acute and chronic respiratory failure, unspecified whether with hypoxia or hypercapnia (principal); J44.9 Chronic obstructive pulmonary disease, unspecified; R53.83 Other fatigue; J98.4 Other disorders of lung
CPT/HCPCS: 71046; 78582

== ENCOUNTER → 2018-01-29 | Outpatient (CLI) | payer BC, MEDICARE ==
[~2018-01-29] MED LIST changes: -IPRA3AMP NEB; +IPRA3AMP31 NEB
[2018-01-29 12:58] LABS: BASOPHILS % (AUTO) 1 % (0-10); EOSINOPHILS # (AUTO) 0.4 10^3/uL (0.0-0.3); EOSINOPHILS % (AUTO) 5 % (0-10); HEMATOCRIT 35 % (40-54); HEMOGLOBIN 11.5 G/DL (13.3-17.7); LYMPHOCYTES # (AUTO) 2.5 X 10^3 (1.0-4.0); LYMPHOCYTES % (AUTO) 29 % (12-44); MEAN CORPUSCULAR HEMOGLOBIN 31 PG (25-34); MEAN CORPUSCULAR HGB CONC 33 G/DL (32-36); MEAN CORPUSCULAR VOLUME 95 FL (80-99); MEAN PLATELET VOLUME 8.5 FL (7.4-10.4); MONOCYTES # (AUTO) 0.7 X 10^3 (0.0-1.0); MONOCYTES % (AUTO) 8 % (0-12); NEUTROPHILS % (AUTO) 57 % (42-75); PLATELET COUNT 319 10^3/uL (130-400); RED CELL DISTRIBUTION WIDTH 13.2 % (10.0-14.5); WHITE BLOOD COUNT 8.7 10^3/uL (4.3-11.0)
[2018-01-29 13:23] LABS: ALBUMIN 4.3 GM/DL (3.2-4.5); BILIRUBIN,TOTAL 0.5 MG/DL (0.1-1.0); CALCIUM 9.4 MG/DL (8.5-10.1); CREATININE SERUM 1.94 MG/DL (0.60-1.30); POTASSIUM 4.5 MMOL/L (3.6-5.0); TOTAL PROTEIN 7.3 GM/DL (6.4-8.2)
[2018-01-29 13:28] LABS: ERYTHROCYTE SEDIMENTATION RATE 37 MM/HR (0-30)
== END ==
LOC: CARD 10:56
PROVIDERS: ATTEND Nurse Practitioner Family
DX: J44.9 Chronic obstructive pulmonary disease, unspecified (principal); J98.4 Other disorders of lung; R53.83 Other fatigue; J96.20 Acute and chronic respiratory failure, unspecified whether with hypoxia or hypercapnia; G25.81 Restless legs syndrome
CPT/HCPCS: 36415; 80053; 84443; 85025; 85652; 86021; 86038; 86141; 86225; 86235; 86430; 93306

== ENCOUNTER → 2018-04-10 | Outpatient (CLI) | payer BC, MEDICARE ==
[~2018-04-10] MED LIST changes: -OXYC-202 PO; +OXYC1TAB12 PO
[2018-04-10 16:22] LABS: HEMOGLOBIN 11.6 G/DL (13.3-17.7); MEAN PLATELET VOLUME 8.4 FL (7.4-10.4); RED BLOOD COUNT 3.79 10^6/uL (4.35-5.85); WHITE BLOOD COUNT 6.7 10^3/uL (4.3-11.0)
[2018-04-10 17:07] LABS: CALCIUM 9.7 MG/DL (8.5-10.1); CREATININE SERUM 1.69 MG/DL (0.60-1.30); MAGNESIUM 2.2 MG/DL (1.8-2.4); POTASSIUM 3.3 MMOL/L (3.6-5.0)
== END ==
LOC: LAB 16:05
PROVIDERS: ATTEND Internal Medicine Cardiovascular Disease
DX: I12.9 Hypertensive chronic kidney disease with stage 1 through stage 4 chronic kidney disease, or unspecified chronic kidney disease (principal); N18.3 Chronic kidney disease, stage 3 (moderate); E78.5 Hyperlipidemia, unspecified; M79.89 Other specified soft tissue disorders; E66.8 Other obesity
CPT/HCPCS: 36415; 80048; 83735; 85027

== ENCOUNTER → 2019-07-01 | Outpatient (CLI) | payer BC, MEDICARE ==
[~2019-07-01] MED LIST changes: -CYAN100T PO; +CYAN100T3 PO; -EZET10TA27 PO; +EZET10TA49 PO; +FLUT15.845 NS
--- NOTE | 2019-07-01 11:31 | Diagnostic Imaging Report ---
PROCEDURE: MRI right lower extremity without contrast. TECHNIQUE: Multiplanar, multisequence non contrast-enhanced MRI of the right ankle and midfoot was accomplished. INDICATION: Lateral right midfoot pain. COMPARISONS: None available. FINDINGS: TENDONS: Achilles is normal. There is complete tear of the peroneus longus as it courses beneath the distal calcaneus. The tendon is retracted into the retromalleolar region. The posterior tibialis, flexor digitorum longus and flexor hallucis longus are intact were visualized. The anterior tibialis, extensor hallucis longus and extensor digitorum longus are normal. LIGAMENTS: The anterior and posterior distal tibiofibular ligaments are intact. The anterior talofibular, calcaneofibular and posterior talofibular ligaments are normal. Medial deltoid ligamentous complex is normal. Spring ligament appears intact but thickened. BONES AND CARTILAGE: There is a nondisplaced subchondral stress fracture involving the distal aspect of the cuboid. Diffuse bone marrow edema is present throughout the cuboid. No additional stress fracture. No osteochondral lesion of the talar dome. SOFT TISSUES: No evidence of plantar fasciitis. No abnormal soft tissue scar/fibrosis within the tarsal canal/sinus tarsi or tarsal tunnel. No ankle joint effusion. Subcutaneous edema is present. IMPRESSION: 1. Acute-subacute stress fracture of the cuboid. 2. Complete tear of the peroneus longus has fibers retracted into the retromalleolar region. Dictated by: Dictated on workstation # [id number]
== END ==
LOC: RAD 09:54
PROVIDERS: ATTEND Podiatrist Foot & Ankle Surgery
DX: M25.474 Effusion, right foot (principal); M84.374A Stress fracture, right foot, initial encounter for fracture

== ENCOUNTER 2019-07-13 14:11 | Outpatient (CLI) | payer BC, MEDICARE ==
[~2019-07-13] VITALS: Ht 172 cm; Wt 121.8 kg
[~2019-07-13 14:11] MED LIST changes: -FLUT15.845 NS
[2019-07-13] MEDS ORDERED: IRON150C13 PO (14:32)
[2019-07-13] MEDS ORDERED: FLUT15.88 NS (14:32)
[2019-07-13 14:37] VITALS: BP 137/82
== END 2019-07-13 15:31 | disposition home or self-care (01) ==
LOC: PREOP 14:11
PROVIDERS: ATTEND Podiatrist Foot & Ankle Surgery
DX: Z01.818 Encounter for other preprocedural examination (principal)
CPT/HCPCS: 87081

== ENCOUNTER 2023-05-14 18:21 | Emergency (ER) | payer MEDICARE, OTHER ==
[~2023-05-14] VITALS: Ht 172.7 cm; Wt 122.4 kg
[~2023-05-14 18:21] MED LIST changes: +ALBU8.5H6 INH; +ASPI-1238 PO; -ASPI-983 PO; -CELE-63 PO; +CELE-91 PO; -CYAN100T3 PO; +CYAN100T37 PO; +CYCL10TA25 PO; +ESCI20TA39 PO; -ESCI20TA45 PO; +FLUT15.845 NS; -LISI10TA2 PO; +LISI10TA25 PO; -OXYC-465 PO; +OXYC-556 PO; -RT-ALBUINH INH; -SULF1TAB35 PO; +SULF1TAB38 PO
[2023-05-14 18:22] VITALS: BP 111/63
--- NOTE | 2023-05-14 18:40 | ED Respiratory ---
General Chief Complaint: Respiratory Problems Stated Complaint: SOA Nursing Triage Note: PT TO RM 7 BY WC AND ASSISTED BY STAFF WITH CC OF INCREASED SOA X 2 DAY AND FATIGUE X 1WEEK. PT STATES INFORMED PCP OF SYMPTOMS SUPERVISOR WIRE ROPE FABRICATION AND WAS ADVISED TO BE SEEN IN ED FOR CHEST X-RAY. PT STATES HAS CHRONIC SOA AND SEES A ASSOCIATE COUNSEL. DENIES CP. PT A&OX4 Source: patient Exam Limitations: no limitations (KEISHA LIRIANO) History of Present Illness Date Seen by Provider: May 14, 2023 Time Seen by Provider: 18:37 Initial Comments Patient is a 67-year-old male with a history of chronic shortness of breath, coronary artery disease, restrictive lung disease who presents ED with increasin g short of breath over the past 2 days. Shortness of breath worse with exertion. Patient does wear 3 L oxygen usually at night. Has been using his oxygen daily secondary to low oxygen level in the upper 80s at home. Does report a very minimal cough without any production. Reports lower leg swelling but states this is fairly chronic without any increase in swelling. Denies of any chest pain abdominal pain vomiting diarrhea fever or chills. States he has been feeling really fatigued over the past week. Patient slept all day today according to . He does see a oracle ebs developer and a oracle ebs architect at [facility]. Had a cardiac cath in February known to have known blockage. Was treated conservatively. Not currently on anticoagulant. Patient denies of any recent travels or surgeries. Patient denies nausea, vomiting, diarrhea, chest pain, fever, chills, headache, dizziness. (KEISHA LIRAINO) Allergies and Home Medications Allergies Coded Allergies: Penicillins (Unverified Allergy, Unknown, FROM CHILDHOOD, [birth year]) Patient Home Medication List Home Medication List Reviewed: Yes (KEISHA LIRIANO) Atorvastatin Calcium (Atorvastatin Calcium) 20 Mg Tablet, 20 MG PO 1630, (Reported) Entered as Reported by: HAM MARIA on 07/24/17 0933 Cyclobenzaprine HCl (Cyclobenzaprine HCl) 10 Mg Tablet, 10 MG PO 0430,2230, (Reported) Entered as Reported by: RADHA MEZA on 06/03/17 1015 Doxycycline Monohydrate (Doxycycline Monohydrate) 100 Mg Tablet, 100 MG PO BID Prescribed by: ANNMARIE GONZALEZ on 05/14/232114 Escitalopram Oxalate (Escitalopram Oxalate) 20 Mg Tablet, 20 MG PO 0430,1630, (Reported) Entered as Reported by: HAM MARIA on 07/24/17932 Esomeprazole Magnesium (Esomeprazole Magnesium) 40 Mg Capsule.dr, 40 MG PO 0430, (Reported) Entered as Reported by: HAM MARIA on 07/24/17 09 Ezetimibe (Ezetimibe) 10 Mg Tablet, 10 MG PO 1630, (Reported) Entered as Reported by: HAM MARIA on 03/13/17 1049 Fluticasone Propionate (Fluticasone Propionate) 15.8 Ml [place].susp, 15.8 ML NS DAILY, (Reported) Entered as Reported by: RICCO HUNG on 07/13/19 143 Furosemide (Furosemide) 40 Mg Tablet, 40 MG PO 1630, (Reported) Entered as Reported by: HAM MARIA on 07/24/17932 Ipratropium/Albuterol Sulfate (Iprat-Albut 0.5-3(2.5) mg/3 ml) 0.5 Mg-3 Mg (2.5 Mg Base)/3 Ml Ampul.neb, 3 ML IH Q4H PRN for SHORTNESS OF BREATH Prescribed by: ANNMARIE GONZALEZ on 05/14/232114 Iron Polysaccharide Complex (Poly-Iron) 150 Mg Capsule, 150 MG PO BID, (Reported) Entered as Reported by: RICCO HUNG on 07/13/19 1432 Lidocaine (Lidocaine 5% Patch) 1 Each Adh..patch, 1 PATCH TD DAILY PRN for BACK PAIN, (Reported) Entered as Reported by: HAM MARIA on 07/24/17 09 Oxycodone HCl (Oxycontin) 80 Mg Tab.er.12h, 80 MG PO 0430,1630, (Reported) Entered as Reported by: HAM MARIA on 07/24/17932 Oxycodone HCl/Acetaminophen (Oxycodone-Acetaminophen 10-325) 1 Each Tablet, 2 TAB PO 1130,2230 PRN for PAIN-MODERATE, (Reported) Entered as Reported by: RADHA MEZA on 06/03/17 1032 Potassium Chloride (Potassium Chloride) 10 Meq Tablet.er, 10 MEQ PO 1130,2230, (Reported) Entered as Reported by: HAM MARIA on 07/24/17 0933 Prednisone (Prednisone) 50 Mg Tab, 50 MG PO DAILY Prescribed by: ANNMARIE GONZALEZ on 05/14/232114 Review of Systems Review of Systems Constitutional: No chills, No diaphoresis, No fever, No malaise, No weakness EENTM: No ear pain, No blurred vision, No double vision Respiratory: cough, dyspnea on exertion Cardiovascular: No chest pain; edema; No syncope, No vascular heart diseas Gastrointestinal: No abdominal pain, No diarrhea, No nausea, No vomiting Genitourinary: No decreased output, No dysuria, No frequency Musculoskeletal: No back pain, No joint pain Skin: No change in color, No change in hair/nails (KEISHA LIRIANO) All Other Systems Reviewed Negative Unless Noted: Yes (KEISHA LIRIANO) Past Nfkibew-Tnqqfg-Olzovk Hx Patient Social History Tobacco Use?: No Smoking Status: Former Smoker Substance use?: No Alcohol Use?: No (KEISHA LIRIANO) Immunizations Up To Date Tetanus Booster (TDap): Less than 5yrs (KEISHA LIRIANO) Seasonal Allergies Seasonal Allergies: No (KEISHA LIRIANO) Past Medical History Surgery/Hospitalization HX: CHRONIC SOA Surgeries: Yes (NECK, BACK,FRANCISCA TKR, KNEE SCOPES ) Orthopedic Respiratory: Yes (HAS NOT BEEN USING CPAP, O2 2L AT NIGHT) Sleep Apnea Currently Using CPAP: No Currently Using BIPAP: No Cardiac: Yes High Cholesterol, Hypertension Neurological: Yes Neuropathy Reproductive Disorders: No Sexually Transmitted Disease: No HIV/AIDS: No Genitourinary: Yes (SEEING SPECIALIST IN [place]) Renal Failure Gastrointestinal: Yes (DIVERTICULOSIS NOTED ON CT, BUT NO EPISODES OF DIVERTICULTITIS) Gastroesophageal Reflux, Chronic Constipation, Diverticulosis Musculoskeletal: Yes Arthritis, Chronic Back Pain Endocrine: No HEENT: Yes (GLASSES, DENTURES) Loss of Vision: Denies Hearing Impairment: Denies Cancer: No Psychosocial: Yes Anxiety, Depression Integumentary: No Blood Disorders: No Adverse Reaction/Blood Tranf: No (N/A) (KEISHA LIRIANO) Family Medical History Cardiovascular disease 19 FATHER Hypertension G8 BROTHER Respiratory disorder 19 FATHER Heart Disease, Diabetes, Hypertension, Lung Disease (KEISHA LIRIANO) Physical Exam Vital Signs - First Documented 05/14/23 18:22 Temp 36.6 Pulse 58 Resp 16 B/P (MAP) 111/63 (79) Pulse Ox 92 O2 Delivery Nasal Cannula O2 Flow Rate 3.00 92.00 (BEL FRANZ MD) Capillary Refill : Less Than 3 Seconds (KEISHA LIRIANO) Height: 5'9.00" Weight: 273lbs. 0.6oz. 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 as tested, no motor/sensory deficits, alert, normal mood/affect, oriented x 3 Skin: normal color, warm/dry (KEISHA LIRIANO) Progress/Results/Core Measures Suspected Sepsis SIRS Temperature: Pulse: 58 Respiratory Rate: 16 Laboratory Tests 05/14/23 18:50: White Blood Count 7.0 Blood Pressure 111 /63 Mean: 79 Laboratory Tests 05/14/23 18:50: Creatinine 1.42H, Platelet Count 243, Total Bilirubin 0.4 05/14/23 19:10: INR Comment 1.0 (KEISHA LIRIANO) Results/Orders Lab Results Laboratory Tests Test 05/14/23 18:49 05/14/23 18:50 05/14/23 19:10 Range/Units Influenza Type A (RT-PCR) Not Detected Not Detecte Influenza Type B (RT-PCR) Not Detected Not Detecte SARS-CoV-2 RNA (RT-PCR) Not Detected Not Detecte White Blood Count 7.0 4.3-11.0 10^3/uL Red Blood Count 3.76 L 4.30-5.52 10^6/uL Hemoglobin 11.8 L 13.3-17.7 g/dL Hematocrit 36 L 40-54 % Mean Corpuscular Volume 97 80-99 fL Mean Corpuscular Hemoglobin 31 25-34 pg Mean Corpuscular Hemoglobin Concent 33 32-36 g/dL Red Cell Distribution Width 13.3 10.0-14.5 % Platelet Count 243 130-400 10^3/uL Mean Platelet Volume 9.3 9.0-12.2 fL Immature Granulocyte % (Auto) 0 % Neutrophils (%) (Auto) 74 42-75 % Lymphocytes (%) (Auto) 15 12-44 % Monocytes (%) (Auto) 7 0-12 % Eosinophils (%) (Auto) 3 0-10 % Basophils (%) (Auto) 1 0-10 % Neutrophils # (Auto) 5.2 1.8-7.8 10^3/uL Lymphocytes # (Auto) 1.1 1.0-4.0 10^3/uL Monocytes # (Auto) 0.5 0.0-1.0 10^3/uL Eosinophils # (Auto) 0.2 0.0-0.3 10^3/uL Basophils # (Auto) 0.1 0.0-0.1 10^3/uL Immature Granulocyte # (Auto) 0.0 0.0-0.1 10^3/uL Percent Immature Platelet Fraction 2.6 0.0-7.6 % Sodium Level 138 135-145 MMOL/L Potassium Level 3.8 3.6-5.0 MMOL/L Chloride Level 100 98-107 MMOL/L Carbon Dioxide Level 27 21-32 MMOL/L Anion Gap 11 5-14 MMOL/L Blood Urea Nitrogen 18 7-18 MG/DL Creatinine 1.42 H 0.60-1.30 MG/DL Estimat Glomerular Filtration Rate 53 BUN/Creatinine Ratio 13 Glucose Level 127 H 70-105 MG/DL Calcium Level 9.2 8.5-10.1 MG/DL Corrected Calcium 9.4 8.5-10.1 MG/DL Magnesium Level 1.7 1.6-2.4 MG/DL Total Bilirubin 0.4 0.1-1.0 MG/DL Aspartate Amino Transf (AST/SGOT) 23 5-34 U/L Alanine Aminotransferase (ALT/SGPT) 14 0-55 U/L Alkaline Phosphatase 92 40-136 U/L Myoglobin 98.5 H 10.0-92.0 NG/ML Troponin I < 0.028 <0.028 NG/ML B-Type Natriuretic Peptide 41.7 <100.0 PG/ML Total Protein 7.7 6.4-8.2 GM/DL Albumin 3.8 3.2-4.5 GM/DL Prothrombin Time 13.1 12.2-14.7 SEC INR Comment 1.0 0.8-1.4 Activated Partial Thromboplast Time < 20 L 24-35 SEC D-Dimer 0.74 H 0.00-0.49 UG/ML (BEL FRANZ MD) Medications Given in ED Current Medications Medications Dose Ordered Sig/Marcio Route Start Time Stop Time Status Last Admin Dose Admin Albuterol/ Ipratropium 3 ml ONCE ONCE INH 05/14/23 20:00 05/14/23 20:01 DC 05/14/23 20:12 3 ML Iohexol 100 ml ONCE ONCE IV 05/14/23 20:15 05/14/23 20:16 DC 05/14/23 20:36 86 ML Methylprednisolone Sodium Succinate 125 mg ONCE ONCE IVP 05/14/23 20:00 05/14/23 20:01 DC 05/14/23 20:22 125 MG Sodium Chloride 100 ml ONCE ONCE IV 05/14/23 20:15 05/14/23 20:16 DC 05/14/23 20:36 77 ML (BEL FRANZ MD) Vital Signs/I&O 05/14/23 05/14/23 05/14/23 05/14/23 18:22 18:22 18:22 20:13 Temp 36.6 Pulse 58 Resp 16 B/P (MAP) 111/63 (79) Pulse Ox 92 94 95 O2 Delivery Nasal Cannula Nasal Cannula Room Air Nasal Cannula O2 Flow Rate 3.00 3.00 3.00 2.00 92.00 (BEL FRANZ MD) Vital Signs/I&O Capillary Refill : Less Than 3 Seconds (KEISHA LIRIANO) Blood Pressure Mean: 79 ECG Comment Sinus bradycardia, left axis deviation, 55 bpm, QRS duration 106 MS, QTc 440 MS (KEISHA LIRIANO) Departure Communication (PCP) Reviewed previous ER visits, H&P, lab testing. Differential diagnosis COPD exacerbation, pneumonia, PE, ACS. Patient does wear oxygen at night. States he had to use his oxygen at home as he felt his oxygen was slightly lower. He states he had readings in the upper 80s. Not currently on breathing treatments but does have a nebulizer at home. States he has been having increased short of breath over the past 2 or 3 days. Patient denies any chest pain. Patient oxygen on arrival 94% on room air. He states he feels like he needed oxygen so 2 L was placed. Does have some slight diminished lung sounds and subtle wheezing. Patient did receive a DuoNeb breathing treatment and Solu-Medrol with some improvement. Cardiac work-up was initiated as well as a chest x-ray. CBC was grossly unremarkable. Hemoglobin 11.8. Chemistry showed normal troponin and BNP. Creatinine 1.42 chronic and stable. COVID influenza negative. Chest x-ray was negative for pneumonia, pleural effusion. Does not appear to be fluid overload. He did have an elevated D-dimer 0.74. CT angio chest was negative for PE, pleural effusion, pneumonia. Interstitial lung disease. Did remove patient's oxygen he remained around 94% he states he is feeling much better at this time. Concern for a COPD exacerbation. Will discharge with doxycycline prophylactically and provided DuoNeb nebulizer canisters as well as short burst steroids. Recommend follow-up with your primary care physician in the next 2 or 3 days for reevaluation. If in increasing short of breath or developing chest pain return back to ED. Patient agrees with this plan of action. Ambulatory oxygen over 93% (KEISHA LIRIANO) Impression Primary Impression: Interstitial lung disease Disposition: 01 HOME, SELF-CARE Condition: Stable Departure-Patient Inst. Decision time for Depature: 21:14 (KEISHA LIRIANO) Referrals: JAVIER SALINAS MD (PCP/Family) Primary Care Physician Patient Instructions: Interstitial Lung Disease Add. Discharge Instructions: Continue with your nebulizer treatment. Take antibiotics as prescribed. Short burst steroids. Follow-up your oracle ebs architect for further evaluation. If any worsening symptoms return back to ED All discharge instructions reviewed with patient and/or family. Voiced understanding. Scripts Ipratropium/Albuterol Sulfate (Iprat-Albut 0.5-3(2.5) mg/3 ml) 0.5 Mg-3 Mg (2.5 Mg Base)/3 Ml Ampul.neb 3 ML IH Q4H PRN for SHORTNESS OF BREATH, #20 EACH Prov: KEISHA LIRIANO 05/14/23 Doxycycline Monohydrate (Doxycycline Monohydrate) 100 Mg Tablet 100 MG PO BID for 7 Days, #14 TAB Prov: KEISHA LIRIANO 05/14/23 Prednisone (Prednisone) 50 Mg Tab 50 MG PO DAILY for 5 Days, #5 TAB Prov: KEISHA LIRIANO 05/14/23 ATTENDING PHYSICIAN NOTE: I was physically present as attending physician in the emergency department during the care of this patient, but I was not directly involved in the decision making or delivery of care for this patient. (BEL FRANZ MD) KEISHA LIRIANO May 14, 2023 18:40 BEL FRANZ MD May 15, 2023 02:32
[2023-05-14 18:56] LABS: LYMPHOCYTES # (AUTO) 1.1 10^3/uL (1.0-4.0)
[2023-05-14 18:57] LABS: BASOPHILS # (AUTO) 0.1 10^3/uL (0.0-0.1); BASOPHILS % (AUTO) 1 % (0-10); EOSINOPHILS # (AUTO) 0.2 10^3/uL (0.0-0.3); EOSINOPHILS % (AUTO) 3 % (0-10); HEMATOCRIT 36 % (40-54); HEMOGLOBIN 11.8 g/dL (13.3-17.7); LYMPHOCYTES % (AUTO) 15 % (12-44); MEAN CORPUSCULAR HEMOGLOBIN 31 pg (25-34); MEAN CORPUSCULAR HGB CONC 33 g/dL (32-36); MEAN CORPUSCULAR VOLUME 97 fL (80-99); MEAN PLATELET VOLUME 9.3 fL (9.0-12.2); MONOCYTES # (AUTO) 0.5 10^3/uL (0.0-1.0); MONOCYTES % (AUTO) 7 % (0-12); NEUTROPHILS # (AUTO) 5.2 10^3/uL (1.8-7.8); NEUTROPHILS % (AUTO) 74 % (42-75); PLATELET COUNT 243 10^3/uL (130-400)
[2023-05-14 19:15] LABS: ALBUMIN 3.8 GM/DL (3.2-4.5); CHLORIDE 100 MMOL/L (98-107); POTASSIUM 3.8 MMOL/L (3.6-5.0); SODIUM 138 MMOL/L (135-145)
[2023-05-14 19:16] LABS: CALCIUM 9.2 MG/DL (8.5-10.1)
[2023-05-14 19:17] LABS: GLUCOSE 127 MG/DL (70-105)
[2023-05-14 19:18] LABS: TOTAL PROTEIN 7.7 GM/DL (6.4-8.2)
[2023-05-14 19:19] LABS: BILIRUBIN,TOTAL 0.4 MG/DL (0.1-1.0); CARBON DIOXIDE 27 MMOL/L (21-32)
[2023-05-14 19:21] LABS: ALKALINE PHOSPHATASE 92 U/L (40-136); CREATININE SERUM 1.42 MG/DL (0.60-1.30); GFR ESTIMATED 53
[2023-05-14 19:22] LABS: BUN/CREATININE RATIO 13
[2023-05-14 19:24] LABS: ALANINE AMINOTRANSFERASE 14 U/L (0-55); MAGNESIUM 1.7 MG/DL (1.6-2.4)
--- NOTE | 2023-05-14 19:29 | Diagnostic Imaging Report ---
Indication: Chest pain, shortness of air and fatigue. Comparison: 01/08/2018 Findings: Poor inspiratory volume crowding, the lung markings with some perihilar and basilar atelectasis. Heart size within normal limits. No effusion or pneumothorax. Impression: 1. Zones of atelectasis, exaggerated by very poor inspiratory volume. No alveolar consolidation, failure or acute pleural pathology. 2. Chronic calcified benign granulomatous residua is stable. Dictated by: Dictated on workstation # [id number]
[2023-05-14 19:32] LABS: PROTHROMBIN TIME PATIENT 13.1 SEC (12.2-14.7)
[2023-05-14 19:42] LABS: PARTIAL THROMBOPLASTIN TIME < 20 SEC (24-35)
[2023-05-14] MEDS ORDERED: RT-Ipratropium/Albuterol NEB 3 ML VIAL INH ONE (20:00)
[2023-05-14] MEDS ORDERED: methylPREDNISolone INJ 125 MG VIAL IVP ONE (20:00)
[2023-05-14] MEDS ORDERED: IOHEXOL 350 MG/ML 100 ML (OMNIPAQUE 350) VIAL IV ONE (20:15)
[2023-05-14] MEDS ORDERED: NS 100 ML (IVPB) BAG IV ONE (20:15)
[2023-05-14] MEDS ORDERED: HOLD METFORMIN - RECEIVED CONTRAST 20 ML VIAL IV SCH (20:15)
--- NOTE | 2023-05-14 21:02 | Diagnostic Imaging Report ---
INDICATION: Dyspnea, chest pain CTA chest obtained with IV contrast bolus and axial slices and 3-D MIPS reconstructions. Dose reduction protocol was used. There is no prior study for comparison. The pulmonary parenchymal vessels are well-opacified with no CT evidence of pulmonary emboli. The thoracic aorta shows no evidence of dissection or aneurysm. There are coronary artery calcifications. There are no enlarged mediastinal or hilar nodes. There are no enlarged axillary nodes. Visualized portions of the upper abdomen show no acute finding. There is elevation of the right hemidiaphragm. Lung windows demonstrate chronic interstitial fibrotic changes. There is no consolidation or mass. IMPRESSION: No CT evidence of pulmonary emboli or acute aortic pathology. Elevation of right hemidiaphragm. Chronic interstitial fibrotic changes. There is no pleural fluid. Dictated by: Dictated on workstation # [id number]
[2023-05-14] MEDS ORDERED: IPRA3AMP31 IH (21:15)
[2023-05-14] MEDS ORDERED: PRD50T PO (21:15)
[2023-05-14] MEDS ORDERED: DOXY100T31 PO (21:15)
== END 2023-05-14 21:22 | disposition home or self-care (01) ==
LOC: EDUNIT# 18:21 → ER 18:23
DX: J84.9 Interstitial pulmonary disease, unspecified (principal); Z99.81 Dependence on supplemental oxygen; Z88.0 Allergy status to penicillin; Z87.891 Personal history of nicotine dependence
CPT/HCPCS: 36415; 71045; 71275; 80053; 83735; 83874; 83880; 84484; 85025; 85379; 85610; 85730; 87636; 93005; 94640; 96374